=== PATIENT | female | born 1990 | race Caucasian/White ===

== ENCOUNTER 2017-11-03 18:10 | Emergency (ER) | payer BC ==
--- NOTE | 2017-11-03 18:57 | EDM.PDOC ---
ED HPI GENERAL MEDICAL PROBLEM - General Chief Complaint: Abdominal Pain Stated Complaint: STOMACH PAIN Time Seen by Provider: 11/03/17 18:57 Source of Information: Reports: Patient History Limitations: Reports: No Limitations - History of Present Illness INITIAL COMMENTS - FREE TEXT/NARRATIVE: 18-year-old female presents to the ED with diffuse left upper quadrant abdominal pain. She states she's had this pain for about a week. She has known to suffer from chronic recurrent pancreatitis. Last bad attack was about 2 years ago. Current flareup started about a week ago. She was seen in clinic on Wednesday last week and serum lipase was greater than 900. Been living on clear fluids but pain worsened today associated with nausea and vomiting unable to keep down medications. She has had her gallbladder removed about 8 years ago. Stools are loose for the most part or she doesn't go out all depending what she eats. She's been living for the most part on clear fluids such as Gatorade / Powerade. Cause of her pancreas tightest is unclear. No previous surgical trauma or trauma to the pancreas known. She does not drink much in the way of alcohol. No foods that she deliberately avoids. Not sure about her serum calcium levels and or her triglycerides. No recent medication changes. Onset: Gradual Onset Date: 10/27/17 Duration: Day(s): Location: Reports: Abdomen (Left upper quadrant of the abdomen not radiating through to the back.) Quality: Reports: Ache, Pressure Severity: Severe (Current pain is 8 out of 10.) Improves with: Reports: None Worsens with: Reports: Eating Context: Reports: Other (Known to have recurrent problems with recurrent pancreatitis.). Denies: Activity, Exercise, Lifting, Sick Contact, Trauma Associated Symptoms: Reports: Loss of Appetite, Malaise, Nausea/Vomiting. Denies: Confusion, Chest Pain, Cough, cough w sputum, Diaphoresis, Fever/Chills , Headaches, Rash, Seizure (Today she's vomited 3 times bilious material), Shortness of Breath, Syncope Treatments CHOKE SETTER: Reports: Acetaminophen Right Upper Abdomen Pain Score (Numeric/FACES): 7 - Related Data Allergies Allergy/AdvReac Type Severity Reaction Status Date / Time Latex, Natural Rubber Allergy Rash Verified 11/03/17 18:35 metronidazole [From Flagyl] Allergy Rash Verified 11/03/17 18:35 sulfamethoxazole Allergy Rash Verified 11/03/17 18:35 [From Bactrim] trimethoprim [From Bactrim] Allergy Rash Verified 11/03/17 18:35 amoxicillin trihydrate AdvReac Vomiting Verified 11/03/17 18:35 [From Augmentin] potassium clavulanate AdvReac Vomiting Verified 11/03/17 18:35 [From Augmentin] Home Meds: Home Meds . 1 tab PO DAILY 02/06/14 [History] Lactobacillus Combo No.10 [Probiotic] 1 tab PO BID 04/01/15 [History] Calcium Carbonate [Calcium] 600 mg PO DAILY 11/03/17 [History] Escitalopram [Lexapro] 20 mg PO DAILY 11/03/17 [History] Ethinyl Estradiol/Norgestrel [Cryselle 28-Day] 1 tab PO DAILY 11/03/17 [History] oxyCODONE HCl/Acetaminophen [Percocet 5-325 mg Tablet] 1 - 2 each PO Q4H PRN # 16 tablet 11/03/17 [Rx] Past Medical History HEENT History: Reports: Impaired Vision Cardiovascular History: Reports: None Respiratory History: Reports: Other (See Below) Other Respiratory History: smoker x 9 years. has 5-6 cig aday Gastrointestinal History: Reports: GERD Other Gastrointestinal History: History of C-dff Genitourinary History: Reports: None SYSTEM ARCHIVE ANALYST History: Reports: Spontaneous Musculoskeletal History: Reports: Other (See Below) Other Musculoskeletal History: scoliosis Neurological History: Reports: None Psychiatric History: Reports: Anxiety, Depression Endocrine/Metabolic History: Reports: None - Infectious Disease History Infectious Disease History: Reports: C-Difficile - Past Surgical History Head Surgeries/Procedures: Reports: Other (See Below) GI Surgical History: Reports: Abdominal paracentesis Social & Family History - Family History Family Medical History: Noncontributory HEENT: Reports: None - Tobacco Use Smoking Status *Q: Current Every Day Smoker Years of Tobacco use: 10 Packs/Tins Daily: 0.5 Used Tobacco, but Quit: No - Caffeine Use Caffeine Use: Reports: None - Recreational Drug Use Recreational Drug Use: No - Living Situation & Occupation Living situation: Reports: Occupation: Unemployed ED ROS GENERAL - Review of Systems Review Of Systems: See Below Constitutional: Reports: Decreased Appetite, Weight Loss. Denies: Fever, Chills , Malaise, Weakness, Fatigue HEENT: Reports: No Symptoms Respiratory: Reports: No Symptoms Cardiovascular: Reports: No Symptoms Endocrine: Reports: No Symptoms GI/Abdominal: Reports: Abdominal Pain, Diarrhea (See history of present illness intermittent loose stools.). Denies: Distension, Flatus, Hematemesis, Hematochezia, Melena : Reports: No Symptoms Musculoskeletal: Reports: No Symptoms Skin: Reports: No Symptoms Neurological: Reports: No Symptoms Psychiatric: Reports: No Symptoms Hematologic/Lymphatic: Reports: No Symptoms Immunologic: Reports: No Symptoms ED EXAM, GI/ABD - Physical Exam Exam: See Below Exam Limited By: No Limitations General Appearance: Alert, WD/WN, No Apparent Distress Eyes: Bilateral: Normal Appearance (No jaundice.) Throat/Mouth: Normal Inspection, Normal Oropharynx, Other Head: Atraumatic, Normocephalic Neck: Normal Inspection (Lips are mildly dry.), Supple, Non-Tender, Full Range of Motion. No: Lymphadenopathy (L), Lymphadenopathy (R) Respiratory/Chest: No Respiratory Distress, Lungs Clear, Normal Breath Sounds, No Accessory Muscle Use Cardiovascular: Normal Peripheral Pulses, Regular Rate, Rhythm, No Edema, No Gallop, No Murmur GI/Abdominal Exam: Normal Bowel Sounds, Soft, Non-Tender, No Organomegaly, No Distention, No Abnormal Bruit, No Mass, Pelvis Stable, Tender (Minimally tender left upper quadrant of the abdomen.). No: Guarding, Rigid, Rebound Back Exam: Normal Inspection, Full Range of Motion. No: CVA Tenderness (L), CVA Tenderness (R) Extremities: Normal Inspection, Normal Range of Motion, Non-Tender, No Pedal Edema Neurological: Alert, Oriented, CN II-XII Intact, Normal Cognition, Normal Gait Psychiatric: Normal Affect, Normal Mood Skin Exam: Warm, Dry, Intact, Normal Color, No Rash Course - Vital Signs Last Recorded V/S: Last Vital Signs Temp 36.7 C 11/03/17 18:30 Pulse 64 11/03/17 18:30 Resp 18 11/03/17 18:30 BP 113/67 11/03/17 18:30 Pulse Ox 100 11/03/17 18:30 - Orders/Labs/Meds Orders: Active Orders 24 hr Category Date Time Status CALCIUM, IONIZED, SERUM [REF] Stat Lab 05/16/18 18:48 Received URINALYSIS W/O MICROSCOPIC [UA W/O MICROSCOPIC] [URIN] Lab 11/03/17 19:26 Ordered Stat Dextrose 5%-0.9% NaCl [Dextrose 5%-Normal Saline] 1,000 Med 11/03/17 19:15 Active ml IV ASDIRECTED Medication Orders Dextrose/Sodium Chloride (Dextrose 5%-Normal Saline) 1,000 mls @ 999 mls/hr IV ASDIRECTED KATTY Last Admin: 11/03/17 19:16 Dose: 999 mls/hr Labs: Laboratory Tests 11/03/17 11/03/17 11/03/17 Range/Units 18:48 18:48 19:26 WBC 5.42 (3.98-10.04) K/mm3 RBC 4.67 (3.98-5.22) M/mm3 Hgb 14.0 (11.2-15.7) gm/L Hct 42.3 (34.1-44.9) % MCV 90.6 (79.4-94.8) fl MCH 30.0 (25.6-32.2) pg MCHC 33.1 (32.2-35.5) g/dl RDW Std Deviation 40.0 (36.4-46.3) fL Plt Count 195 (182-369) K/mm3 MPV 9.5 (9.4-12.3) fl Neutrophils % (Manual) 47 (40-60) % Band Neutrophils % 0 (0-10) % Lymphocytes % (Manual) 49 H (20-40) % Atypical Lymphs % 0 % Monocytes % (Manual) 3 (2-10) % Eosinophils % (Manual) 1 (0.7-5.8) % Basophils % (Manual) 0 L (0.1-1.2) Platelet Estimate Adequate RBC Morph Comment Normal Sodium 136 (136-145) mEq/L Potassium 4.0 (3.5-5.1) mEq/L Chloride 101 (98-107) mEq/L Carbon Dioxide 23 (21-32) mEq/L Anion Gap 16.0 H (5-15) BUN 14 (7-18) mg/dL Creatinine 0.9 (0.55-1.02) mg/dL Est Cr Clr Drug Dosing 89.30 mL/min Estimated GFR (MDRD) > 60 (>60) mL/min BUN/Creatinine Ratio 15.6 (14-18) Glucose 88 (74-106) mg/dL Calcium 9.1 (8.5-10.1) mg/dL Total Bilirubin 1.2 H (0.2-1.0) mg/dL AST 20 (15-37) U/L ALT 32 (14-59) U/L Alkaline Phosphatase 70 (46-116) U/L C-Reactive Protein < 0.2 (<1.0) mg/dL Total Protein 7.8 (6.4-8.2) g/dl Albumin 4.3 (3.4-5.0) g/dl Globulin 3.5 gm/dL Albumin/Globulin Ratio 1.2 (1-2) Triglycerides 69 (<150) mg/dL Lipase 778 H (73-393) U/L Urine Color Yellow (Yellow) Urine Appearance Slt cloudy H (Clear) Urine pH 5.5 (5.0-8.0) Ur Specific [place] 1.020 (1.005-1.030) Urine Protein Negative (Negative) Urine Glucose (UA) Negative (Negative) Urine Ketones 1+ H (Negative) Urine Occult Blood Negative (Negative) Urine Nitrite Negative (Negative) Urine Bilirubin 1+ H (Negative) Urine Urobilinogen 0.2 (0.2-1.0) Ur Leukocyte Esterase Negative (Negative) Meds: Medications Generic Name Dose Route Start Last Admin Trade Name Jason PRN Reason Stop Dose Admin Dextrose/Sodium Chloride 1,000 mls @ 999 mls/hr 11/03/17 19:15 11/03/17 19:16 Dextrose 5%-Normal Saline IV 999 mls/hr ASDIRECTED KATTY Administration Discontinued Medications Generic Name Dose Route Start Last Admin Trade Name Jason PRN Reason Stop Dose Admin Hydromorphone HCl 0.5 mg 11/03/17 19:06 11/03/17 19:17 Dilaudid IVPUSH 11/03/17 19:07 0.5 mg ONETIME ONE Administration Hydromorphone HCl 0.5 mg 11/03/17 19:52 11/03/17 20:02 Dilaudid IVPUSH 11/03/17 19:53 0.5 mg ONETIME ONE Administration Metoclopramide HCl 7.5 mg 11/03/17 19:06 11/03/17 19:14 Reglan IVPUSH 11/03/17 19:07 7.5 mg ONETIME ONE Administration - Radiology Interpretation Free Text/Narrative:: 18-year-old female presents the ED with diffuse left upper quadrant epigastric abdominal pain more or less for the last week. She has a history of recurrent chronic pancreatitis and hasn't had a bout of proctitis for about 2 years. She had her gallbladder removed 8 years ago. She has no etiology for reason for pancreatitis. No trauma no surgical injury. Does not know about her calcium levels or serum triglycerides. She's been living for the most part are clear fluid diet for the last week. Intermittent diarrhea stools are loose stools. Some steatorrhea. Plan :IV D5 normal saline at open. Dilaudid 0.5 mg IV for pain relief with Reglan 7.5 mg IV. Routine lab work including serum lipase and urinalysis to be done. - Re-Assessments/Exams Free Text/Narrative Re-Assessment/Exam: 11/03/17 19:50 Labs reveal a normal white count at 5.42. Differentials 47% neutrophils no bands reported hemoglobin is 14.0 with hematocrit of 42.3. Platelets are 195,000. Chemistry is normal other than a slightly elevated anion gap at 16.0. Urine is 14 with a creatinine of 0.9. Glucose is 88. Calcium is 9.1 total bilirubin is 1.2 liver function normal. Lipase is 778. Triglycerides are low at 69. C-reactive protein is less than 0.2. Urinalysis shows 1+ ketones 1+ bilirubin. Infection. She reports her abdominal pain is still about a 45 out of 10. Nausea is improved. Will repeat Dilaudid 0.5 mg IV. 11/03/17 20:32 patient is completed liter of IV fluids and feels better. Pain is currently 3 out of 10. Will be discharged home on Percocet tabs 10/21/24 one or 2 every 4-6 hours as needed for pain relief 16 tablets provided. Then 4 mg sublingually every 6 hours needed for nausea relief. Diet to be clear fluids plan primarily Gatorade Powerade and advance as tolerated. She has no reason to have recurrent parotitis. Gallbladder is gone is been no trauma she does not drink enough alcohol to cause pancreatitis. Her serum triglycerides are normal her calcium levels are normal. This leaves medications. The only medication she is on that may cause pancreatic sinuses her control pill. Discussed this with her she may have to discuss this with her primary care physician or SYSTEM ARCHIVE ANALYST to switch forms of control to avoid recurrent parotitis. Departure - Departure Time of Disposition: 20:34 Disposition: Home, Self-Care 01 Condition: Fair Clinical Impression: Recurrent acute pancreatitis - Discharge Information Prescriptions: oxyCODONE HCl/Acetaminophen [Percocet 5-325 mg Tablet] 1 - 2 each PO Q4H PRN # 16 tablet PRN Reason: pain relief. Referrals: PCP,None [Primary Care Provider] - Forms: ED Department Discharge Additional Instructions: Evaluation the emergency room tonight in regards to persistent left upper quadrant abdominal pain characteristic of her pancreatitis. The right nose to pancreatitis over a week ago. Serum lipase is reportedly 900 on Wednesday last week. Pain became worse today with associated nausea and vomiting. Examination reveals tenderness left upper quadrant of the abdomen. Lab work confirmed parotitis with an elevated lipase of 778. The remainder your labs are essentially normal. You're treated with a liter of IV fluids to provide rehydration. You were given medications Reglan 7.5 mg with Dilaudid 0.5 mg 2 doses to relieve your pain. The only reason I can identify that she may be having recurrent pancreatitis is medication induced perhaps ethinyl estradiol control pills are contributing to parotitis as this is a known side effect of oral contraceptives. Therefore discuss contraceptive options with your SYSTEM ARCHIVE ANALYST or primary care physician is I would suggest trialing office with control pill to see if this alleviates further bouts of pancreatitis. May use Percocet tabs //25 one or 2 every 4-6 hours needed for pain relief for the next few days until the pancreatitis settles down. Continue Zofran 4 mg under the tongue every 4-6 hours needed for nausea relief. Diet to be primarily clear fluids such as Gatorade Powerade and advance to light diet as tolerated avoiding fatty foods for at least 3-4 days. Follow-up with personal care physician or return to the ED if not markedly improved in 4 days time. - My Orders Last 24 Hours: My Active Orders 11/03/17 18:48 CALCIUM, IONIZED, SERUM [REF] Stat 11/03/17 19:15 Dextrose 5%-0.9% NaCl [Dextrose 5%-Normal Saline] 1,000 ml IV ASDIRECTED 11/03/17 19:26 URINALYSIS W/O MICROSCOPIC [UA W/O MICROSCOPIC] [URIN] Stat - Assessment/Plan Last 24 Hours: My Active Orders 11/03/17 18:48 CALCIUM, IONIZED, SERUM [REF] Stat 11/03/17 19:15 Dextrose 5%-0.9% NaCl [Dextrose 5%-Normal Saline] 1,000 ml IV ASDIRECTED 11/03/17 19:26 URINALYSIS W/O MICROSCOPIC [UA W/O MICROSCOPIC] [URIN] Stat
[2017-11-03] MEDS ORDERED: HYDROmorphone 0.5 MG/0.5 ML SYRINGE IVPUSH ONE ×2 (19:06→19:52)
[2017-11-03] MEDS ORDERED: Metoclopramide 10 MG/2 ML SDV IVPUSH ONE (19:06)
[2017-11-03] MEDS ORDERED: Dextrose 5%-0.9% NaCl 1,000 ML IV SCH (19:15)
[2017-11-03 20:51] VITALS: BP 106/57
== END 2017-11-03 20:49 | disposition home or self-care (01) ==
LOC: JD.ED 18:10
DX: K85.90 Acute pancreatitis without necrosis or infection, unspecified (principal); F41.9 Anxiety disorder, unspecified; F32.9 Major depressive disorder, single episode, unspecified; F17.210 Nicotine dependence, cigarettes, uncomplicated; Z91.040 Latex allergy status; Z88.1 Allergy status to other antibiotic agents; Z88.2 Allergy status to sulfonamides; Z79.899 Other long term (current) drug therapy
CPT/HCPCS: 80053; 81003; 82330; 83690; 84478; 85007; 85027; 86140; 96361; 96374; 96375; 96376; 99284; J1170; J2765; J7042; 36415

== ENCOUNTER 2017-11-26 20:53 | Emergency (ER) | payer BC ==
[2017-11-26 21:16] VITALS: BP 126/68
[2017-11-26] MEDS ORDERED: Ondansetron 4 MG/2 ML SDV IVPUSH ONE (21:46)
[2017-11-26] MEDS ORDERED: HYDROmorphone 0.5 MG/0.5 ML SYRINGE IVPUSH STA (21:48)
[2017-11-26] MEDS ORDERED: Sodium Chloride 0.9% 1,000 ML IV SCH (22:00)
[2017-11-27] MEDS ORDERED: Iopamidol 612 MG/ML 100 ML Bottle IVPUSH ONE (00:07)
[2017-11-27] MEDS ORDERED: Sodium Chloride 0.9% 10 ML Syringe FLUSH PRN (00:07)
[2017-11-27] MEDS ORDERED: Diatrizoate Meglumine/Diatrizoate Sodium 37% 120 ML Bottle PO ONE (00:07)
--- NOTE | 2017-11-27 01:28 | EDM.PDOC ---
ED HPI GENERAL MEDICAL PROBLEM - General Chief Complaint: Abdominal Pain Stated Complaint: CHRONIC PANCRITITIOUS FLARED UP Time Seen by Provider: 11/26/17 21:17 Source of Information: Reports: Patient, Family () History Limitations: Reports: No Limitations Left Abdomen Pain Score (Numeric/FACES): 7 - Related Data Allergies Allergy/AdvReac Type Severity Reaction Status Date / Time Latex, Natural Rubber Allergy Rash Verified 11/03/17 18:35 metronidazole [From Flagyl] Allergy Rash Verified 11/03/17 18:35 sulfamethoxazole Allergy Rash Verified 11/03/17 18:35 [From Bactrim] trimethoprim [From Bactrim] Allergy Rash Verified 11/03/17 18:35 amoxicillin trihydrate AdvReac Vomiting Verified 11/03/17 18:35 [From Augmentin] potassium clavulanate AdvReac Vomiting Verified 11/03/17 18:35 [From Augmentin] Home Meds: Home Meds Lactobacillus Combo No.10 [Probiotic] 1 tab PO BID 04/01/15 [History] Calcium Carbonate [Calcium] 600 mg PO DAILY 11/03/17 [History] Escitalopram [Lexapro] 20 mg PO DAILY 11/03/17 [History] Ethinyl Estradiol/Norgestrel [Cryselle 28-Day] 1 tab PO DAILY 11/03/17 [History] Azithromycin [Zithromax] 250 mg PO DAILY 11/26/17 [History] PNV95/Ferrous Fumarate/FA [ Tablet] 1 tab PO DAILY 11/26/17 [History] Acetaminophen/HYDROcodone [Agar 325-5 MG] 1 - 2 tab PO Q6H PRN #20 tablet 11/27 [Rx] Past Medical History HEENT History: Reports: Impaired Vision Cardiovascular History: Reports: None Respiratory History: Reports: Other (See Below) Other Respiratory History: smoker x 9 years. has 5-6 cig aday Gastrointestinal History: Reports: GERD Other Gastrointestinal History: History of C-dff Genitourinary History: Reports: None BAR BACK History: Reports: Spontaneous Musculoskeletal History: Reports: Other (See Below) Other Musculoskeletal History: scoliosis Neurological History: Reports: None Psychiatric History: Reports: Anxiety, Depression Endocrine/Metabolic History: Reports: None - Infectious Disease History Infectious Disease History: Reports: C-Difficile - Past Surgical History Head Surgeries/Procedures: Reports: Other (See Below) GI Surgical History: Reports: Abdominal paracentesis Social & Family History - Family History Family Medical History: Noncontributory HEENT: Reports: None - Tobacco Use Smoking Status *Q: Current Every Day Smoker Years of Tobacco use: 11 Packs/Tins Daily: 0.7 - Caffeine Use Caffeine Use: Reports: Soda, Tea - Recreational Drug Use Recreational Drug Use: No - Living Situation & Occupation Living situation: Reports: Occupation: Unemployed ED ROS GENERAL - Review of Systems Review Of Systems: ROS reveals no pertinent complaints other than HPI. ED EXAM, GI/ABD - Physical Exam Exam: See Below Exam Limited By: No Limitations General Appearance: Alert, WD/WN, No Apparent Distress Eyes: Bilateral: Normal Appearance, EOMI Ears: Normal External Exam, Hearing Grossly Normal Nose: Normal Inspection, No Blood Throat/Mouth: Normal Inspection, Normal Lips, Normal Voice, No Airway Compromise Head: Atraumatic, Normocephalic Neck: Normal Inspection, Full Range of Motion Respiratory/Chest: No Respiratory Distress, Lungs Clear, Normal Breath Sounds, No Accessory Muscle Use Cardiovascular: Normal Peripheral Pulses, Regular Rate, Rhythm, No Gallop, No JVD, No Murmur, No Rub GI/Abdominal Exam: Normal Bowel Sounds, Soft, No Organomegaly, No Distention, No Abnormal Bruit, No Mass, Pelvis Stable, Tender (To the epigastric region only. Nontender elsewhere, including the left upper quadrant.) (Female) Exam: Deferred Rectal (Female) Exam: Deferred Back Exam: Normal Inspection, Full Range of Motion. No: CVA Tenderness (L), CVA Tenderness (R) Extremities: Normal Inspection, Normal Range of Motion, No Pedal Edema, Normal Capillary Refill Neurological: Alert, Oriented, Normal Cognition, No Motor/Sensory Deficits Psychiatric: Normal Affect Skin Exam: Warm, Dry, Intact, Normal Color, No Rash Course - Vital Signs Last Recorded V/S: Last Vital Signs Temp 37.0 C 11/26/17 21:15 Pulse 84 11/26/17 21:15 Resp 20 11/26/17 21:15 BP 126/68 11/26/17 21:15 Pulse Ox 99 11/26/17 21:15 - Orders/Labs/Meds Orders: Active Orders 24 hr Category Date Time Status Abdomen Pelvis w Cont [CT] Stat Exams 11/26/17 21:46 Taken HCG QUALITATIVE,URINE [URCHEM] Stat Lab 11/26/17 22:12 Ordered UA W/MICROSCOPIC [URIN] Stat Lab 11/26/17 22:12 Ordered Labs: Laboratory Tests 11/26/17 11/26/17 11/26/17 Range/Units 22:05 22:05 22:12 WBC 7.62 (3.98-10.04) K/mm3 RBC 4.44 (3.98-5.22) M/mm3 Hgb 13.3 (11.2-15.7) gm/L Hct 40.7 (34.1-44.9) % MCV 91.7 (79.4-94.8) fl MCH 30.0 (25.6-32.2) pg MCHC 32.7 (32.2-35.5) g/dl RDW Std Deviation 40.9 (36.4-46.3) fL Plt Count 222 (182-369) K/mm3 MPV 9.4 (9.4-12.3) fl Neutrophils % (Manual) 54 (40-60) % Band Neutrophils % 0 (0-10) % Lymphocytes % (Manual) 38 (20-40) % Atypical Lymphs % 0 % Monocytes % (Manual) 6 (2-10) % Eosinophils % (Manual) 2 (0.7-5.8) % Basophils % (Manual) 0 L (0.1-1.2) Platelet Estimate Adequate Plt Morphology Comment Normal RBC Morph Comment Normal Sodium 143 (136-145) mEq/L Potassium 3.3 L (3.5-5.1) mEq/L Chloride 106 (98-107) mEq/L Carbon Dioxide 26 (21-32) mEq/L Anion Gap 14.3 (5-15) BUN 7 (7-18) mg/dL Creatinine 0.8 (0.55-1.02) mg/dL Est Cr Clr Drug Dosing 98.07 mL/min Estimated GFR (MDRD) > 60 (>60) mL/min BUN/Creatinine Ratio 8.8 L (14-18) Glucose 111 H (74-106) mg/dL Calcium 9.0 (8.5-10.1) mg/dL Total Bilirubin 0.9 (0.2-1.0) mg/dL AST 19 (15-37) U/L ALT 36 (14-59) U/L Alkaline Phosphatase 105 (46-116) U/L Total Protein 7.5 (6.4-8.2) g/dl Albumin 3.6 (3.4-5.0) g/dl Globulin 3.9 gm/dL Albumin/Globulin Ratio 0.9 L (1-2) Lipase 987 H (73-393) U/L Urine Color Yellow (Yellow) Urine Appearance Clear (Clear) Urine pH 6.5 (5.0-8.0) Ur Specific Caro 1.015 (1.005-1.030) Urine Protein Negative (Negative) Urine Glucose (UA) Negative (Negative) Urine Ketones Negative (Negative) Urine Occult Blood 2+ H (Negative) Urine Nitrite Negative (Negative) Urine Bilirubin Negative (Negative) Urine Urobilinogen 0.2 (0.2-1.0) Ur Leukocyte Esterase Negative (Negative) Urine RBC 0-5 (0-5) /hpf Urine WBC Not seen (0-5) /hpf Ur Epithelial Cells 0-5 (0-5) /hpf Urine Bacteria Not seen (FEW) /hpf Urine Mucus Not seen (FEW) /hpf Urine HCG, Qual (NEGATIVE) 11/26/17 Range/Units 22:12 WBC (3.98-10.04) K/mm3 RBC (3.98-5.22) M/mm3 Hgb (11.2-15.7) gm/L Hct (34.1-44.9) % MCV (79.4-94.8) fl MCH (25.6-32.2) pg MCHC (32.2-35.5) g/dl RDW Std Deviation (36.4-46.3) fL Plt Count (182-369) K/mm3 MPV (9.4-12.3) fl Neutrophils % (Manual) (40-60) % Band Neutrophils % (0-10) % Lymphocytes % (Manual) (20-40) % Atypical Lymphs % % Monocytes % (Manual) (2-10) % Eosinophils % (Manual) (0.7-5.8) % Basophils % (Manual) (0.1-1.2) Platelet Estimate Plt Morphology Comment RBC Morph Comment Sodium (136-145) mEq/L Potassium (3.5-5.1) mEq/L Chloride (98-107) mEq/L Carbon Dioxide (21-32) mEq/L Anion Gap (5-15) BUN (7-18) mg/dL Creatinine (0.55-1.02) mg/dL Est Cr Clr Drug Dosing mL/min Estimated GFR (MDRD) (>60) mL/min BUN/Creatinine Ratio (14-18) Glucose (74-106) mg/dL Calcium (8.5-10.1) mg/dL Total Bilirubin (0.2-1.0) mg/dL AST (15-37) U/L ALT (14-59) U/L Alkaline Phosphatase (46-116) U/L Total Protein (6.4-8.2) g/dl Albumin (3.4-5.0) g/dl Globulin gm/dL Albumin/Globulin Ratio (1-2) Lipase (73-393) U/L Urine Color (Yellow) Urine Appearance (Clear) Urine pH (5.0-8.0) Ur Specific Caro (1.005-1.030) Urine Protein (Negative) Urine Glucose (UA) (Negative) Urine Ketones (Negative) Urine Occult Blood (Negative) Urine Nitrite (Negative) Urine Bilirubin (Negative) Urine Urobilinogen (0.2-1.0) Ur Leukocyte Esterase (Negative) Urine RBC (0-5) /hpf Urine WBC (0-5) /hpf Ur Epithelial Cells (0-5) /hpf Urine Bacteria (FEW) /hpf Urine Mucus (FEW) /hpf Urine HCG, Qual Negative (NEGATIVE) Meds: Medications Discontinued Medications Generic Name Dose Route Start Last Admin Trade Name Freq PRN Reason Stop Dose Admin Diatrizoate Meglum/Diatrizoate Sod 90 ml 11/27/17 00:07 11/27/17 00:20 Gastrografin 37% PO 11/27/17 00:08 90 ml ONETIME ONE Administration Hydromorphone HCl 1 mg 11/26/17 21:48 11/26/17 22:07 Dilaudid IVPUSH 11/26/17 21:49 1 mg ONETIME STA Administration Sodium Chloride 1,000 mls @ 150 mls/hr 11/26/17 22:00 11/26/17 22:09 Normal Saline IV 150 mls/hr ASDIRECTED KATTY Administration Iopamidol 100 ml 11/27/17 00:07 11/27/17 00:20 Isovue-300 (61%) IVPUSH 11/27/17 00:08 100 ml ONETIME ONE Administration Ondansetron HCl 4 mg 11/26/17 21:46 11/26/17 22:08 Zofran IVPUSH 11/26/17 21:47 4 mg ONETIME ONE Administration Sodium Chloride 10 ml 11/27/17 00:07 11/27/17 00:20 Saline Flush FLUSH 10 ml ONETIME PRN Administration IV FLUSH - Re-Assessments/Exams Free Text/Narrative Re-Assessment/Exam: 11/27/17 01:21 CT of the abdomen and pelvis with oral and IV contrast is read by [facility] as: Moderate to large amount of stool in the colon. No acute inflammatory/infectious process identified in the abdomen or pelvis. No evidence of bowel obstruction. 2 liver lesions, see discussion and recommendations above. The body of the report reads: There is a 2.3 x 2.2 cm enhancing mass in the medial of the liver bordering the falciform ligament. This is a nonspecific finding but may represent a hemangioma among other etiologies. There is an additional 1.2 x 1.2 cm hypodense lesion with a possible focus of peripheral nodular enhancement in the high subscapular left lobe of liver. Recommend correlation with triple phase liver CT or liver MRI without and with gadolinium. There is no intrahepatic biliary dilatation. 11/27/17 01:28 Test results discussed with the patient and her . 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 She does not need to be admitted to the hospital for treatment of pancreatitis however, I am going to discharge her home with a prescription for Agar. She states that she has an antiemetic at home already. 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 Departure - Departure Time of Disposition: 01:30 Disposition: Home, Self-Care 01 Condition: Fair Clinical Impression: Pancreatic pain, Lesion of liver - Discharge Information Prescriptions: Acetaminophen/HYDROcodone [Agar 325-5 MG] 1 - 2 tab PO Q6H PRN #20 tablet PRN Reason: Pain (Severe 7-10) Instructions: Abdominal Pain, Adult, [id number] Referrals: Crystal Beckford NP [Primary Care Provider] - Forms: ED Department Discharge Additional Instructions: You were seen in the emergency room for upper left abdominal pain and nausea. Workup in the ER included blood work, a urinalysis, a urine test, and a CT scan of your abdomen and pelvis. Your lipase returned elevated at 987 - high, but not 3 times the upper limit of normal as required for a diagnosis of pancreatitis. Your CT scan found several lesions in your liver that need to be followed up with either a triple phase CT scan or a MRI with gadolinium contrast. The remainder of your workup was unremarkable. The CT scan did not find any abnormality with your pancreas. You do not have pancreatitis, however, your abdominal pain is likely from your pancreas. You have been prescribed the narcotic pain reliever Agar. Take 1-2 tablets up to every 6 hours as needed for pain. If you take Agar, do not drive for 10 hours afterwards. Agar will likely cause constipation, so consider taking a stool softener. Follow-up with your Social Sciences Lecturer in [place] [employer] at the next available appointment, as a follow-up for your abdominal pain, as well as to arrange for evaluation of your liver lesions. If any other problems, please do not hesitate to return to the ER. - My Orders Last 24 Hours: My Active Orders 11/26/17 21:46 Abdomen Pelvis w Cont [CT] Stat 11/26/17 22:12 HCG QUALITATIVE,URINE [URCHEM] Stat UA W/MICROSCOPIC [URIN] Stat - Assessment/Plan Last 24 Hours: My Active Orders 11/26/17 21:46 Abdomen Pelvis w Cont [CT] Stat 11/26/17 22:12 HCG QUALITATIVE,URINE [URCHEM] Stat UA W/MICROSCOPIC [URIN] Stat
--- NOTE | 2017-11-29 08:08 | CT ---
CT abdomen and pelvis Technique: Multiple axial sections were obtained from above the dome of the diaphragm inferiorly through the pubic symphysis. Intravenous and oral contrast was utilized. Delayed images were obtained through the bladder. Comparison: Prior CT abdomen exam of 04/16/15. Findings: Visualized lung bases show nothing acute. Liver shows an enhancing lesion near the ligamentum teres fissure measuring approximately 2.3 cm. This is an interval change from prior CT exam. Small abnormality with minimal peripheral enhancement noted within the dome of the right lobe of the liver measuring about 1.0 cm in size. This finding is seen on previous CT exam and appears without change. Spleen appears within normal limits. Adrenal glands show no nodule. Kidneys show symmetric contrast enhancement without hydronephrosis or mass. Surgical clips seen from prior cholecystectomy. Pancreas is within normal limits. Aorta shows no aneurysmal dilatation. No retroperitoneal adenopathy or mesenteric abnormalities are seen. No pelvic mass or adenopathy is seen. Delayed images show contrast within the bladder. No bowel dilatation is seen. No free fluid or inflammatory change is seen. Appendix not visualized with certainty. Bone window settings were reviewed and within normal limits for the patient's age. Impression: 1. Two liver lesions. One liver lesion seen on prior CT exam and likely represents hemangioma. Second liver lesion is not seen on prior study. This may represent a hemangioma but recommend nuclear medicine RBC SPECT study to hopefully confirm. 2. Nothing acute is otherwise seen on CT study of the abdomen and pelvis. Diagnostic code #3 I agree with preliminary report from [facility], finalized at 11/27/17, 2:07 AM Central Time
== END 2017-11-27 02:00 | disposition home or self-care (01) ==
LOC: JD.ED 20:53
DX: K86.89 Other specified diseases of pancreas (principal); K76.9 Liver disease, unspecified; K21.9 Gastro-esophageal reflux disease without esophagitis; F41.9 Anxiety disorder, unspecified; F32.9 Major depressive disorder, single episode, unspecified; F17.210 Nicotine dependence, cigarettes, uncomplicated; Z91.040 Latex allergy status; Z88.8 Allergy status to other drugs, medicaments and biological substances; Z88.2 Allergy status to sulfonamides; Z79.899 Other long term (current) drug therapy
CPT/HCPCS: 36415; 74177; 80053; 81001; 81025; 83690; 85007; 85027; 96361; 96374; 96375; 99284; J1170; J2405; J7040; J7050; Q9963; Q9967

== ENCOUNTER 2018-09-12 17:35 | Emergency (ER) | payer BC ==
[2018-09-12] MEDS ORDERED: Sodium Chloride 0.9% 10 ML Syringe FLUSH PRN (18:53)
[2018-09-12] MEDS ORDERED: Sodium Chloride 0.9% 1,000 ML IV ONE (18:53)
[2018-09-12] MEDS ORDERED: HYDROmorphone 1 MG/ML Syringe IVPUSH ONE (18:53)
[2018-09-12] MEDS ORDERED: Ondansetron 4 MG/2 ML SDV IVPUSH ONE (18:53)
--- NOTE | 2018-09-12 19:05 | EDM.PDOC ---
ED HPI GENERAL MEDICAL PROBLEM - General Chief Complaint: Abdominal Pain Stated Complaint: CHRONIC PANCREATITIS Time Seen by Provider: 09/12/18 18:44 Source of Information: Reports: Patient History Limitations: Reports: No Limitations - History of Present Illness INITIAL COMMENTS - FREE TEXT/NARRATIVE: Patient is a 27-year-old female who presents to the ED complaining of epigastric /left upper quadrant abdominal pain consistent with previous episodes of pancreatitis flareup. She has a history of chronic pancreatitis. Started 3 days ago waxes and wanes in intensity constant in nature. In addition she's had diarrhea since onset of pain. 10+ episodes Wednesday and Wednesday per day. Today only 3. No dark tarry stools and/or bloody stools present. No recent sick exposure at this point. She denies any recent antibiotic use. She has a history of C. difficile in the past and states this is different. There has been no ingestion of bad or questionable food. She had a temperature on Wednesday of 102 F. None since. She states the chronic pancreatitis is idiopathic in nature. She states her last menstrual cycle was August 23, 2017. She's had no abnormal vaginal discharge or bleeding. She has a history of molar in 2018. The occurred April 2018. She is on a higher dose of control since. Again pain is similar to previous episodes of pancreatitis. She denies any fever , chest pain, sob, nausea vomiting, dysuria, and/or any additional complaints today. Left Upper Abdominal Pain Score (Numeric/FACES): 7 - Related Data Allergies Allergy/AdvReac Type Severity Reaction Status Date / Time Latex, Natural Rubber Allergy Rash Verified 09/12/18 18:21 metronidazole [From Flagyl] Allergy Rash Verified 09/12/18 18:21 sulfamethoxazole Allergy Rash Verified 09/12/18 18:21 [From Bactrim] trimethoprim [From Bactrim] Allergy Rash Verified 09/12/18 18:21 amoxicillin trihydrate AdvReac Vomiting Verified 09/12/18 18:21 [From Augmentin] potassium clavulanate AdvReac Vomiting Verified 09/12/18 18:21 [From Augmentin] Home Meds: Home Meds Folic Acid 1 tab PO DAILY 04/29/18 [History] #103/Iron Fumarate/Fa [ ] 1 tab PO DAILY 04/29/18 [ History] Norgestrel-Ethinyl Estradiol [Elinest-28 Tablet] 1 tab PO DAILY 05/20/18 [ History] Past Medical History HEENT History: Reports: Impaired Vision Cardiovascular History: Reports: None Respiratory History: Reports: Other (See Below) Other Respiratory History: smoker x 9 years. 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: D&C Musculoskeletal History: Reports: Other (See Below) Other Musculoskeletal History: scoliosis Neurological History: Reports: None Psychiatric History: Reports: Anxiety, Depression Endocrine/Metabolic History: Reports: None - Infectious Disease History Infectious Disease History: Reports: C-Difficile - Past Surgical History Head Surgeries/Procedures: Reports: Other (See Below) GI Surgical History: Reports: Abdominal paracentesis Social & Family History - Family History Family Medical History: Noncontributory HEENT: Reports: None - Tobacco Use Smoking Status *Q: Current Every Day Smoker Years of Tobacco use: 11 Packs/Tins Daily: 0.5 - Caffeine Use Caffeine Use: Reports: Coffee - Recreational Drug Use Recreational Drug Use: No - Living Situation & Occupation Living situation: Reports: Occupation: Unemployed ED ROS GENERAL - Review of Systems Review Of Systems: ROS reveals no pertinent complaints other than HPI. ED EXAM, GI/ABD - Physical Exam Exam: See Below Exam Limited By: No Limitations General Appearance: Alert, WD/WN, No Apparent Distress Ears: Hearing Grossly Normal Nose: Normal Inspection Throat/Mouth: Normal Inspection, Normal Oropharynx, Normal Voice, No Airway Compromise Head: Atraumatic, Normocephalic Neck: Normal Inspection, Supple Respiratory/Chest: No Respiratory Distress, Lungs Clear, Normal Breath Sounds, No Accessory Muscle Use, Chest Non-Tender Cardiovascular: Normal Peripheral Pulses, Regular Rate, Rhythm, No Murmur GI/Abdominal Exam: Normal Bowel Sounds, Soft, No Organomegaly, No Distention, Tender (Epigastric and left upper quadrant) Back Exam: Normal Inspection. No: CVA Tenderness (L), CVA Tenderness (R) Extremities: Normal Inspection Neurological: Alert, Oriented, CN II-XII Intact, Normal Cognition Psychiatric: Normal Affect, Normal Mood Skin Exam: Warm, Dry, Intact, Normal Color Course - Vital Signs Last Recorded V/S: Last Vital Signs Temp 97.9 F 09/12/18 18:18 Pulse 62 09/12/18 18:18 Resp 16 09/12/18 18:18 BP Pulse Ox 99 09/12/18 18:18 - Orders/Labs/Meds Orders: Active Orders 24 hr Category Date Time Status Peripheral IV Care [RC] . DIRECTED Care 09/12/18 18:53 Active Abdomen 2V AP Flat Upright [CR] Stat Exams 09/12/18 18:53 Taken WBC, STOOL [OP] Stat Lab 09/12/18 18:58 Ordered Sodium Chloride 0.9% [Saline Flush] Med 09/12/18 18:53 Active 10 ml FLUSH ASDIRECTED PRN Peripheral IV Insertion Adult [OM.PC] Routine Oth 09/12/18 18:53 Ordered Medication Orders Sodium Chloride (Saline Flush) 10 ml FLUSH ASDIRECTED PRN PRN Reason: Keep Vein Open Last Admin: 09/12/18 19:07 Dose: 10 ml Labs: Laboratory Tests 09/12/18 09/12/18 09/12/18 Range/Units 19:05 19:10 20:22 WBC 6.00 (3.98-10.04) K/mm3 RBC 4.71 (3.98-5.22) M/mm3 Hgb 13.9 (11.2-15.7) gm/L Hct 41.2 (34.1-44.9) % MCV 87.5 (79.4-94.8) fl MCH 29.5 (25.6-32.2) pg MCHC 33.7 (32.2-35.5) g/dl RDW Std Deviation 40.3 (36.4-46.3) fL Plt Count 232 (182-369) K/mm3 MPV 9.3 L (9.4-12.3) fl Neutrophils % (Manual) 45 (40-60) % Band Neutrophils % 0 (0-10) % Lymphocytes % (Manual) 49 H (20-40) % Atypical Lymphs % 0 % Monocytes % (Manual) 5 (2-10) % Eosinophils % (Manual) 1 (0.7-5.8) % Basophils % (Manual) 0 L (0.1-1.2) Platelet Estimate Adequate RBC Morph Comment Normal Sodium 140 (136-145) mEq/L Potassium 3.8 (3.5-5.1) mEq/L Chloride 106 (98-107) mEq/L Carbon Dioxide 24 (21-32) mEq/L Anion Gap 13.8 (5-15) BUN 7 (7-18) mg/dL Creatinine 0.8 (0.55-1.02) mg/dL Est Cr Clr Drug Dosing 100.90 mL/min Estimated GFR (MDRD) > 60 (>60) mL/min BUN/Creatinine Ratio 8.8 L (14-18) Glucose 91 (74-106) mg/dL Calcium 9.3 (8.5-10.1) mg/dL Total Bilirubin 0.3 (0.2-1.0) mg/dL AST 14 L (15-37) U/L ALT 29 (14-59) U/L Alkaline Phosphatase 86 (46-116) U/L C-Reactive Protein 0.2 (<1.0) mg/dL Total Protein 7.9 (6.4-8.2) g/dl Albumin 4.0 (3.4-5.0) g/dl Globulin 3.9 gm/dL Albumin/Globulin Ratio 1.0 (1-2) Lipase 726 H (73-393) U/L Urine Color Yellow (Yellow) Urine Appearance Clear (Clear) Urine pH 6.0 (5.0-8.0) Ur Specific [place] 1.020 (1.005-1.030) Urine Protein Negative (Negative) Urine Glucose (UA) Negative (Negative) Urine Ketones Negative (Negative) Urine Occult Blood Negative (Negative) Urine Nitrite Negative (Negative) Urine Bilirubin Negative (Negative) Urine Urobilinogen 0.2 (0.2-1.0) Ur Leukocyte Esterase Trace H (Negative) Urine RBC 0-5 (0-5) /hpf Urine WBC 0-5 (0-5) /hpf Ur Epithelial Cells 5-10 H (0-5) /hpf Urine Bacteria Occasional (FEW) /hpf Urine Mucus Moderate H (FEW) /hpf Urine HCG, Qual (NEGATIVE) 09/12/18 Range/Units 20:22 WBC (3.98-10.04) K/mm3 RBC (3.98-5.22) M/mm3 Hgb (11.2-15.7) gm/L Hct (34.1-44.9) % MCV (79.4-94.8) fl MCH (25.6-32.2) pg MCHC (32.2-35.5) g/dl RDW Std Deviation (36.4-46.3) fL Plt Count (182-369) K/mm3 MPV (9.4-12.3) fl Neutrophils % (Manual) (40-60) % Band Neutrophils % (0-10) % Lymphocytes % (Manual) (20-40) % Atypical Lymphs % % Monocytes % (Manual) (2-10) % Eosinophils % (Manual) (0.7-5.8) % Basophils % (Manual) (0.1-1.2) Platelet Estimate RBC Morph Comment Sodium (136-145) mEq/L Potassium (3.5-5.1) mEq/L Chloride (98-107) mEq/L Carbon Dioxide (21-32) mEq/L Anion Gap (5-15) BUN (7-18) mg/dL Creatinine (0.55-1.02) mg/dL Est Cr Clr Drug Dosing mL/min Estimated GFR (MDRD) (>60) mL/min BUN/Creatinine Ratio (14-18) Glucose (74-106) mg/dL Calcium (8.5-10.1) mg/dL Total Bilirubin (0.2-1.0) mg/dL AST (15-37) U/L ALT (14-59) U/L Alkaline Phosphatase (46-116) U/L C-Reactive Protein (<1.0) mg/dL Total Protein (6.4-8.2) g/dl Albumin (3.4-5.0) g/dl Globulin gm/dL Albumin/Globulin Ratio (1-2) Lipase (73-393) U/L Urine Color (Yellow) Urine Appearance (Clear) Urine pH (5.0-8.0) Ur Specific [place] (1.005-1.030) Urine Protein (Negative) Urine Glucose (UA) (Negative) Urine Ketones (Negative) Urine Occult Blood (Negative) Urine Nitrite (Negative) Urine Bilirubin (Negative) Urine Urobilinogen (0.2-1.0) Ur Leukocyte Esterase (Negative) Urine RBC (0-5) /hpf Urine WBC (0-5) /hpf Ur Epithelial Cells (0-5) /hpf Urine Bacteria (FEW) /hpf Urine Mucus (FEW) /hpf Urine HCG, Qual Negative (NEGATIVE) Meds: Medications Generic Name Dose Route Start Last Admin Trade Name Frekayla PRN Reason Stop Dose Admin Sodium Chloride 10 ml 09/12/18 18:53 09/12/18 19:07 Saline Flush FLUSH 10 ml ASDIRECTED PRN Administration Keep Vein Open Discontinued Medications Generic Name Dose Route Start Last Admin Trade Name Jason PRN Reason Stop Dose Admin Hydromorphone HCl 0.5 mg 09/12/18 18:53 09/12/18 19:07 Dilaudid IVPUSH 09/12/18 18:54 0.5 mg ONETIME ONE Administration Sodium Chloride 1,000 mls @ 500 mls/hr 09/12/18 18:53 09/12/18 19:06 Normal Saline IV 09/12/18 20:52 500 mls/hr ONETIME ONE Administration Ondansetron HCl 4 mg 09/12/18 18:53 09/12/18 19:06 Zofran IVPUSH 09/12/18 18:54 4 mg ONETIME ONE Administration - Re-Assessments/Exams Free Text/Narrative Re-Assessment/Exam: Vital signs are stable upon examination. IV will be established with normal saline, Dilaudid, and Zofran. Initial labs and studies will include: CBC, chem 14, CRP, lipase, UA, 2 view of the abdomen, hCG, and stool WBCs. Labs reviewed: CMP essentially normal. Lipase 726. CRP 0.2. CBC was normal as well. No UA results as of yet. No hCG results. X-ray of the abdomen impression: increased stool pattern with nonspecific air patterns. Reviewed with Dr. Castellanos and he agrees. UA and hCG were both negative. I have offered to obtain CT of the abdomen and pelvis to which the patient refused. Return precautions were discussed with the patient. Patient had no further questions or concerns. She agreed with plan. Discharge instructions as documented. Departure - Departure Time of Disposition: 21:14 Disposition: Home, Self-Care 01 Condition: Good Clinical Impression: Gastroenteritis Abdominal pain Qualifiers: Abdominal location: left upper quadrant Qualified Code(s): R10.12 - Left upper quadrant pain Chronic pancreatitis Qualifiers: Pancreatitis type: idiopathic Qualified Code(s): K86.1 - Other chronic pancreatitis - Discharge Information Instructions: Chronic Pancreatitis, Abdominal Pain, Adult, [id number], Pain Medicine Instructions, [id number] Referrals: PCP,None [Primary Care Provider] - Forms: ED Department Discharge Additional Instructions: Establish medical care with a PCP here locally for further management of your chronic pancreatitis. Utilize the [place] as prescribed for severe pain. In addition x-ray of the abdomen did reveal increased stool pattern suggesting you are constipated. You can have loose stools that bypass the stool bolus gviing you the idea that you're having multiple episodes of diarrhea may be associated with illness. Start taking MiraLAX one capful every day with copious amounts of water. Increase the fiber in your diet. Return to theED if you develop any new or worsening symptoms. . Wear taking the [place] will cause constipation worsening your symptoms thus take only for severe pain. - My Orders Last 24 Hours: My Active Orders 09/12/18 18:53 Peripheral IV Care [RC] . DIRECTED Abdomen 2V AP Flat Upright [CR] Stat Sodium Chloride 0.9% [Saline Flush] 10 ml FLUSH ASDIRECTED PRN Peripheral IV Insertion Adult [OM.PC] Routine 09/12/18 18:58 WBC, STOOL [OP] Stat - Assessment/Plan Last 24 Hours: My Active Orders 09/12/18 18:53 Peripheral IV Care [RC] . DIRECTED Abdomen 2V AP Flat Upright [CR] Stat Sodium Chloride 0.9% [Saline Flush] 10 ml FLUSH ASDIRECTED PRN Peripheral IV Insertion Adult [OM.PC] Routine 09/12/18 18:58 WBC, STOOL [OP] Stat
--- NOTE | 2018-09-13 06:19 | CR ---
Abdomen: Supine and upright views of the abdomen were obtained. Comparison: Prior abdominal x-ray of 02/06/14. Bowel gas pattern appears within normal limits. Several loops of air-filled small bowel are noted within the left mid to upper abdomen which are felt to be incidental. Calcifications are seen within the pelvis which are felt compatible with phleboliths. Minimal scoliosis is noted within the spine. No free air is seen. Impression: 1. Incidental findings. Nothing acute is seen on two-view abdominal x-ray. Diagnostic code #2
== END 2018-09-12 21:25 | disposition home or self-care (01) ==
LOC: JD.ED 17:35
DX: K86.1 Other chronic pancreatitis (principal); K52.9 Noninfective gastroenteritis and colitis, unspecified; K21.9 Gastro-esophageal reflux disease without esophagitis; F41.9 Anxiety disorder, unspecified; F32.9 Major depressive disorder, single episode, unspecified; F17.210 Nicotine dependence, cigarettes, uncomplicated; Z91.040 Latex allergy status; Z88.8 Allergy status to other drugs, medicaments and biological substances; Z88.2 Allergy status to sulfonamides; Z88.1 Allergy status to other antibiotic agents; Z79.899 Other long term (current) drug therapy
CPT/HCPCS: 36415; 74019; 80053; 81001; 81025; 83690; 85007; 85027; 86140; 96361; 96374; 96375; 99284; J1170; J2405; J7040

== ENCOUNTER 2019-04-08 20:35 | Emergency (ER) | payer BC ==
[2019-04-08 20:51] VITALS: BP 137/80; PULSE 72
--- NOTE | 2019-04-08 20:51 | EDM.PDOC ---
ED HPI GENERAL MEDICAL PROBLEM - General Chief Complaint: Abdominal Pain Stated Complaint: FLARE UP OF PANCREATITIS Time Seen by Provider: 04/08/19 20:51 - History of Present Illness INITIAL COMMENTS - FREE TEXT/NARRATIVE: 28-year-old female presents emergency room with a flareup of her chronic pancreatitis. This episode been going on for the last day or so she has had multiple episodes like this in the past because of these are unknown it's not alcohol-related is been labeled idiopathic pancreatitis chronic. She has some nausea associated with this and some discomfort in the upper abdomen. She denies any other complaints at this time.. Left Upper Abdomen Pain Score (Numeric/FACES): 7 - Related Data Allergies Allergy/AdvReac Type Severity Reaction Status Date / Time Latex, Natural Rubber Allergy Rash Verified 04/08/19 20:51 metronidazole [From Flagyl] Allergy Rash Verified 04/08/19 20:51 sulfamethoxazole Allergy Rash Verified 04/08/19 20:51 [From Bactrim] trimethoprim [From Bactrim] Allergy Rash Verified 04/08/19 20:51 amoxicillin trihydrate AdvReac Vomiting Verified 04/08/19 20:51 [From Augmentin] potassium clavulanate AdvReac Vomiting Verified 04/08/19 20:51 [From Augmentin] Home Meds: Home Meds Folic Acid 1 tab PO DAILY 04/29/18 [History] #103/Iron Fumarate/Fa [ ] 1 tab PO DAILY 04/29/18 [ History] Calcium Carbonate [Calcium] 500 mg PO DAILY 04/08/19 [History] L.acidoph,Paracasei, B.lactis [Probiotic] 1 cap PO DAILY 04/08/19 [History] [place]-3/DHA/Epa/Fish Oil [Fish Oil 500 MG Softgel] 1,000 mg PO DAILY 04/08/19 [ History] Ondansetron [Zofran ODT] 4 mg PO Q6H PRN #20 tab.dis 04/08/19 [Rx] traMADol [Ultram] 50 mg PO Q6H PRN #20 tab 04/08/19 [Rx] Past Medical History HEENT History: Reports: Impaired Vision Cardiovascular History: Reports: None Respiratory History: Reports: Other (See Below) Other Respiratory History: smoker x 9 years. 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 Musculoskeletal History: Reports: Other (See Below) Other Musculoskeletal History: scoliosis Neurological History: Reports: None Psychiatric History: Reports: Anxiety, Depression Endocrine/Metabolic History: Reports: None - Infectious Disease History Infectious Disease History: Reports: C-Difficile - Past Surgical History Head Surgeries/Procedures: Reports: Other (See Below) GI Surgical History: Reports: Abdominal paracentesis Social & Family History - Family History Family Medical History: Noncontributory HEENT: Reports: None - Caffeine Use Caffeine Use: Reports: Coffee - Living Situation & Occupation Living situation: Reports: Occupation: Unemployed ED ROS GENERAL - Review of Systems Review Of Systems: See Below Constitutional: Reports: No Symptoms HEENT: Reports: No Symptoms Respiratory: Reports: No Symptoms Cardiovascular: Reports: No Symptoms Endocrine: Reports: No Symptoms GI/Abdominal: Reports: No Symptoms : Reports: No Symptoms Musculoskeletal: Reports: No Symptoms Skin: Reports: No Symptoms Neurological: Reports: No Symptoms Psychiatric: Reports: No Symptoms Hematologic/Lymphatic: Reports: No Symptoms Immunologic: Reports: No Symptoms ED EXAM, GI/ABD - Physical Exam Exam: See Below General Appearance: Alert, No Apparent Distress Head: Atraumatic, Normocephalic Neck: Normal Inspection, Supple, Non-Tender, Full Range of Motion Respiratory/Chest: No Respiratory Distress, Lungs Clear, Normal Breath Sounds Cardiovascular: Normal Peripheral Pulses, Regular Rate, Rhythm, No Edema GI/Abdominal Exam: Normal Bowel Sounds, Soft, Other (He has tenderness in the epigastric and left upper quadrant no other appreciable tenderness noted no rigidity rebound or guarding noted no ascites) Back Exam: Normal Inspection. No: CVA Tenderness (L), CVA Tenderness (R) Extremities: Normal Inspection, No Pedal Edema Neurological: Alert, Oriented, Normal Cognition Course - Vital Signs Last Recorded V/S: Last Vital Signs Temp 36.8 C 04/08/19 20:48 Pulse 72 04/08/19 20:48 Resp 18 04/08/19 20:48 BP 137/80 04/08/19 20:48 Pulse Ox 100 04/08/19 20:48 - Orders/Labs/Meds Labs: Laboratory Tests 04/08/19 04/08/19 04/08/19 Range/Units 21:48 21:48 21:48 WBC 7.69 (3.98-10.04) K/mm3 RBC 4.67 (3.98-5.22) M/mm3 Hgb 14.0 (11.2-15.7) gm/dl Hct 40.9 (34.1-44.9) % MCV 87.6 (79.4-94.8) fl MCH 30.0 (25.6-32.2) pg MCHC 34.2 (32.2-35.5) g/dl RDW Std Deviation 39.2 (36.4-46.3) fL Plt Count 246 (182-369) K/mm3 MPV 9.1 L (9.4-12.3) fl Neutrophils % (Manual) 28 L (40-60) % Band Neutrophils % 0 (0-10) % Lymphocytes % (Manual) 62 H (20-40) % Atypical Lymphs % 2 % Monocytes % (Manual) 1 L (2-10) % Eosinophils % (Manual) 6 H (0.7-5.8) % Basophils % (Manual) 1 (0.1-1.2) Platelet Estimate Adequate RBC Morph Comment Normal PT 10.9 (9.7-12.0) SECONDS INR 1.00 Sodium 139 (136-145) mEq/L Potassium 3.5 (3.5-5.1) mEq/L Chloride 105 (98-107) mEq/L Carbon Dioxide 25 (21-32) mEq/L Anion Gap 12.5 (5-15) BUN 10 (7-18) mg/dL Creatinine 0.8 (0.55-1.02) mg/dL Est Cr Clr Drug Dosing 99.99 mL/min Estimated GFR (MDRD) > 60 (>60) mL/min BUN/Creatinine Ratio 12.5 L (14-18) Glucose 89 (74-106) mg/dL Calcium 8.9 (8.5-10.1) mg/dL Total Bilirubin 0.4 (0.2-1.0) mg/dL AST 14 L (15-37) U/L ALT 31 (14-59) U/L Alkaline Phosphatase 79 (46-116) U/L Total Protein 7.8 (6.4-8.2) g/dl Albumin 4.3 (3.4-5.0) g/dl Globulin 3.5 gm/dL Albumin/Globulin Ratio 1.2 (1-2) Amylase 163 H (25-115) U/L Lipase 983 H (73-393) U/L Urine Color (Yellow) Urine Appearance (Clear) Urine pH (5.0-8.0) Ur Specific [place] (1.005-1.030) Urine Protein (Negative) Urine Glucose (UA) (Negative) Urine Ketones (Negative) Urine Occult Blood (Negative) Urine Nitrite (Negative) Urine Bilirubin (Negative) Urine Urobilinogen (0.2-1.0) Ur Leukocyte Esterase (Negative) Urine RBC (0-5) /hpf Urine WBC (0-5) /hpf Ur Epithelial Cells (0-5) /hpf Urine Bacteria (FEW) /hpf Urine Mucus (FEW) /hpf 04/08/19 Range/Units 21:50 WBC (3.98-10.04) K/mm3 RBC (3.98-5.22) M/mm3 Hgb (11.2-15.7) gm/dl Hct (34.1-44.9) % MCV (79.4-94.8) fl MCH (25.6-32.2) pg MCHC (32.2-35.5) g/dl RDW Std Deviation (36.4-46.3) fL Plt Count (182-369) K/mm3 MPV (9.4-12.3) fl Neutrophils % (Manual) (40-60) % Band Neutrophils % (0-10) % Lymphocytes % (Manual) (20-40) % Atypical Lymphs % % Monocytes % (Manual) (2-10) % Eosinophils % (Manual) (0.7-5.8) % Basophils % (Manual) (0.1-1.2) Platelet Estimate RBC Morph Comment PT (9.7-12.0) SECONDS INR Sodium (136-145) mEq/L Potassium (3.5-5.1) mEq/L Chloride (98-107) mEq/L Carbon Dioxide (21-32) mEq/L Anion Gap (5-15) BUN (7-18) mg/dL Creatinine (0.55-1.02) mg/dL Est Cr Clr Drug Dosing mL/min Estimated GFR (MDRD) (>60) mL/min BUN/Creatinine Ratio (14-18) Glucose (74-106) mg/dL Calcium (8.5-10.1) mg/dL Total Bilirubin (0.2-1.0) mg/dL AST (15-37) U/L ALT (14-59) U/L Alkaline Phosphatase (46-116) U/L Total Protein (6.4-8.2) g/dl Albumin (3.4-5.0) g/dl Globulin gm/dL Albumin/Globulin Ratio (1-2) Amylase (25-115) U/L Lipase (73-393) U/L Urine Color Yellow (Yellow) Urine Appearance Clear (Clear) Urine pH 6.5 (5.0-8.0) Ur Specific [place] 1.010 (1.005-1.030) Urine Protein Negative (Negative) Urine Glucose (UA) Negative (Negative) Urine Ketones Negative (Negative) Urine Occult Blood Negative (Negative) Urine Nitrite Negative (Negative) Urine Bilirubin Negative (Negative) Urine Urobilinogen 0.2 (0.2-1.0) Ur Leukocyte Esterase Negative (Negative) Urine RBC Not seen (0-5) /hpf Urine WBC Not seen (0-5) /hpf Ur Epithelial Cells 0-5 (0-5) /hpf Urine Bacteria Rare (FEW) /hpf Urine Mucus Not seen (FEW) /hpf Meds: Medications Discontinued Medications Generic Name Dose Route Start Last Admin Trade Name Freq PRN Reason Stop Dose Admin Lactated Ringer's 1,000 mls @ 999 mls/hr 04/08/19 21:22 04/08/19 22:00 Ringers, Lactated IV 04/08/19 22:22 999 mls/hr .BOLUS ONE Administration Ondansetron HCl 4 mg 04/08/19 21:22 04/08/19 22:00 Zofran IVPUSH 04/08/19 21:23 4 mg ONETIME ONE Administration - Re-Assessments/Exams Free Text/Narrative Re-Assessment/Exam: 04/08/19 22:41 She reviewed with the patient at this point she would like to hold off on repeating the CT and would rather attempt to treat this as an outpatient she agrees to clear liquid diet until she follows up with her regular doctor on Wednesday she needs a refill of her Zofran and tramadol. Departure - Departure Time of Disposition: 22:42 Disposition: Home, Self-Care 01 Clinical Impression: Pancreatitis - Discharge Information Prescriptions: Ondansetron [Zofran ODT] 4 mg PO Q6H PRN #20 tab.dis PRN Reason: Nausea/Vomiting traMADol [Ultram] 50 mg PO Q6H PRN #20 tab PRN Reason: Abdominal Pain Referrals: Ronnie Elizondo MD [Primary Care Provider] - Forms: ED Department Discharge Additional Instructions: Return to the emergency room with any questions problems worsening symptoms. Follow-up Dr. Hines on Wednesday Take the medications as directed
[2019-04-08] MEDS ORDERED: Ondansetron 4 MG/2 ML SDV IVPUSH ONE (21:22)
[2019-04-08] MEDS ORDERED: Lactated Ringers 1,000 ML IV ONE (21:22)
== END 2019-04-08 23:23 | disposition home or self-care (01) ==
LOC: JD.ED 20:35
DX: K85.90 Acute pancreatitis without necrosis or infection, unspecified (principal); F17.210 Nicotine dependence, cigarettes, uncomplicated; Z88.0 Allergy status to penicillin; Z88.8 Allergy status to other drugs, medicaments and biological substances; Z88.1 Allergy status to other antibiotic agents; Z91.040 Latex allergy status; Z88.2 Allergy status to sulfonamides
CPT/HCPCS: 36415; 80053; 81001; 82150; 83690; 85007; 85027; 85610; 96361; 96374; 99284; J2405; J7120

== ENCOUNTER 2019-07-26 23:27 | Emergency (ER) | payer BC ==
[2019-07-26 23:42] VITALS: BP 93/55; PULSE 101
--- NOTE | 2019-07-27 00:50 | EDM.PDOC ---
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 Cobb is a pleasant 28-year-old woman with a past medical history significant for untreated GERD, untreated anxiety and depression, and chronic pancreatitis, who states that she is now about 12-1/2 weeks gestation, . Her LMP was 04/28/2018. She is status-post 2 obstetric ultrasounds with this , both at her Team Primary Care Physician's office, the first on 06/15/2019, the second this past , 07/20/2019, at which time the gestational age was measured at 11 weeks 4 or 5 days. Both ultrasounds found a SLIUP with a small subchorionic hematoma. The patient states that her Team Primary Care Physician was not concerned, because if the hematoma were going to cause a problem, it likely would have already. The patient now presents to the ED after developing vaginal bleeding and pelvic cramps around 23:00 this evening. She soaked through one pad and passed 2 clots , however, the amount of bleeding has since diminished. The patient's blood type is O-POS. The patient was diagnosed with influenza a 3 weeks ago, however, she has not otherwise recently been ill with fever, chills, cough, dyspnea, chest pain, palpitations, nausea, vomiting, constipation, diarrhea, abdominal pain, urinary symptoms, recent joint aches, headaches, or rashes. The patient's PCP is MARGO Craven. Her Team Primary Care Physician is Dr. Bin Zamora. Her next appointment with him is in late July. She received an influenza vaccine this season. Lower Abdominal Pain Score (Numeric/FACES): 3 - Related Data Allergies Allergy/AdvReac Type Severity Reaction Status Date / Time Latex, Natural Rubber Allergy Rash Verified 07/26/19 23:43 metronidazole [From Flagyl] Allergy Rash Verified 07/26/19 23:43 sulfamethoxazole Allergy Rash Verified 07/26/19 23:43 [From Bactrim] trimethoprim [From Bactrim] Allergy Rash Verified 07/26/19 23:43 amoxicillin trihydrate AdvReac Vomiting Verified 07/26/19 23:43 [From Augmentin] potassium clavulanate AdvReac Vomiting Verified 07/26/19 23:43 [From Augmentin] Home Meds: Home Meds Folic Acid 1 tab PO DAILY 04/29/18 [History] #103/Iron Fumarate/Fa [ ] 1 tab PO DAILY 04/29/18 [ History] Calcium Carbonate [Calcium] 500 mg PO DAILY 04/08/19 [History] L.acidoph,Paracasei, B.lactis [Probiotic] 1 cap PO DAILY 04/08/19 [History] [place]-3/DHA/Epa/Fish Oil [Fish Oil 500 MG Softgel] 1,000 mg PO DAILY 04/08/19 [ History] Ondansetron [Zofran ODT] 4 mg PO Q6H PRN #20 tab.dis 04/08/19 [Rx] Docusate Sodium [Colace] 1 cap PO DAILY 07/26/19 [History] Progesterone, Micronized [Progesterone] 1 supp VAG BID 07/26/19 [History] Past Medical History HEENT History: Reports: Impaired Vision Gastrointestinal History: Reports: GERD (untreated), Pancreatitis (chronic) COMMERCIAL CREDIT REVIEWER History: Reports: Spontaneous (x 3) : 6 Para: 2 Musculoskeletal History: Reports: Other (See Below) (Scoliosis) Psychiatric History: Reports: Anxiety (untreated), Depression (untreated) - Infectious Disease History Infectious Disease History: Reports: C-Difficile - Past Surgical History HEENT Surgical History: Reports: Naso-Sinus Surgery, Oral Surgery (wisdom teeth extraction) GI Surgical History: Reports: Abdominal paracentesis, Cholecystectomy (2011), ERCP (x 5, each with placement of a biliary stent) Female Surgical History: Reports: D&C (x 2) Social & Family History - Family History Family Medical History: Noncontributory HEENT: Reports: None - Tobacco Use Smoking Status *Q: Current Every Day Smoker Years of Tobacco use: 12 Packs/Tins Daily: 0.5 Packs/Tins Daily Comment: Down from 1.5 ppd - Caffeine Use Caffeine Use: Reports: Coffee - Alcohol Use Alcohol Use History: Yes Alcohol Use Frequency: Rarely - Recreational Drug Use Recreational Drug Use: No - Living Situation & Occupation Living situation: Reports: , with Spouse, with Family (2 kids) 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 ED EXAM - Physical Exam Exam: See Below Exam Limited By: No Limitations General Appearance: Alert, WD/WN, No Apparent Distress Eye Exam: Bilateral Eye: EOMI, Normal Inspection Ears: Normal External Exam, Hearing Grossly Normal Nose: Normal Inspection Throat/Mouth: Normal Inspection, Normal Lips, Normal Voice, No Airway Compromise Head: Atraumatic, Normocephalic Neck: Normal Inspection, Full Range of Motion Respiratory/Chest: No Respiratory Distress, Lungs Clear, Normal Breath Sounds, No Accessory Muscle Use Cardiovascular: Normal Peripheral Pulses, Regular Rate, Rhythm, No Edema, No Gallop, No JVD, No Murmur, No Rub GI/Abdominal Exam: Normal Bowel Sounds, Soft, No Organomegaly, No Distention, No Abnormal Bruit, Tender (Minimal, to the upper left side of the uterus. Nontender elsewhere.), Mass (Gravid uterus consistent with dates) Rectal Exam: Deferred Back Exam: Normal Inspection, Full Range of Motion, NT Extremities: Normal Inspection, Normal Range of Motion, No Pedal Edema, Normal Capillary Refill Neurological: Alert, Oriented, Normal Cognition, No Motor/Sensory Deficits Psychiatric: Normal Affect Skin Exam: Warm, Dry, Intact, Normal Color, No Rash Course - Vital Signs Last Recorded V/S: Last Vital Signs Temp 36.9 C 07/26/19 23:33 Pulse 101 H 07/26/19 23:33 Resp 18 07/26/19 23:33 BP 93/55 L 07/26/19 23:33 Pulse Ox - Orders/Labs/Meds Orders: Active Orders 24 hr Category Date Time Status OB 1st Tri Sgl 1st Gest [US] Stat Exams 07/27/19 00:43 Ordered Labs: Laboratory Tests 07/27/19 Range/Units 00:55 HCG, Quant 58972.0 mIU/mL - Re-Assessments/Exams Free Text/Narrative Re-Assessment/Exam: 07/27/19 00:46 I have ordered a quantitative hCG and an obstetric ultrasound. There is good documentation that the patient's blood type is O-POS, therefore RhoGAM is not indicated. 07/27/19 02:15 Transabdominal ultrasound is read by Darcie as: 1. Early live intrauterine with a sonographic gestational age of 12 weeks 6 days. The sonographic EDC is 02/02/2020 2. Small crescentic fluid collection lying adjacent to the gestational sac measuring 2.9 x 0.8 cm consistent with a small subchorionic hemorrhage 07/27/19 02:47 Test results discussed with the patient and her . While I don't have the prior obstetric ultrasounds reports available, by the patient's history, the subchorionic bleed is stable. The patient is aware that there is nothing that we can do about it; she was mainly concerned about whether or not she suffered a miscarriage, which she has not. I recommended that she contact the office of Dr. Zamora later this morning, and unless they want to see her earlier, to follow-up at her next scheduled appointment at the end of this month. Departure - Departure Time of Disposition: 02:49 Disposition: Home, Self-Care 01 Condition: Good Clinical Impression: Subchorionic hematoma in first trimester - Discharge Information *PRESCRIPTION DRUG MONITORING PROGRAM REVIEWED*: Not Applicable *COPY OF PRESCRIPTION DRUG MONITORING REPORT IN PATIENT LUCIEN: Not Applicable Instructions: Subchorionic Hematoma Referrals: Bin Zamora MD [Primary Care Provider] - Gloria Fernandez PA-C [Physician [employer] Outfit Supervisor] - Forms: ED Department Discharge Additional Instructions: You were seen in the emergency room after developing vaginal bleeding and pelvic cramps, while . Workup in the ER included a quantitative hCG ( hormone), and an obstetric ultrasound. Your quantitative hCG returned at 93,261, which is where we would expect it to be at your gestational age. Your obstetric ultrasound found a single live intrauterine at 12 weeks 6 days, with a small adjacent subchorionic hematoma. Based on your history, the hematoma is stable. We recommend that you contact the office of your Team Primary Care Physician, Dr. Bin Zamora , this morning, to let them know of your ER visit. They may want to see you earlier than your currently scheduled appointment at the end of this month. If any other problems, please do not hesitate to return to the ER. Sepsis Event Note - Evaluation Sepsis Screening Result: No Definite Risk - Focused Exam Vital Signs: Vital Signs Temp Pulse Resp BP 07/26/19 23:33 36.9 C 101 H 18 93/55 L Date Exam was Performed: 07/27/19 Time Exam was Performed: 03:26 - My Orders Last 24 Hours: My Active Orders 07/27/19 00:43 OB 1st Tri Sgl 1st Gest [US] Stat - Assessment/Plan Last 24 Hours: My Active Orders 07/27/19 00:43 OB 1st Tri Sgl 1st Gest [US] Stat
--- NOTE | 2019-07-27 08:19 | US ---
First trimester obstetrical ultrasound: Multiple real-time images were obtained transabdominally. Comparison: No previous study for current . Dates: LMP: LMP given as 04/28/19, ELENA 02/02/20, gestational age 12 weeks 6 days Current ultrasound: ELENA 02/02/20, gestational age 12 weeks 6 days Single intrauterine gestation is seen. Amniotic fluid volume is normal. Small subchorionic hemorrhage is identified. This hemorrhage measures 2.9 x 0.8 x 1.5 cm. Maternal right ovary not visualized, maternal left ovary is normal. Measurements: [place]-rump length: 6.43 cm - 12 weeks 6 days Heart rate: 169 bpm Impression: 1. Single intrauterine gestation. Dates as noted above. 2. Subchorionic hemorrhage is identified. Diagnostic code #3 This report was dictated in [place] Standard Time
== END 2019-07-27 03:10 | disposition home or self-care (01) ==
LOC: JD.ED 23:27
DX: O20.8 Other hemorrhage in early pregnancy (principal); O99.331 Smoking (tobacco) complicating pregnancy, first trimester; F17.210 Nicotine dependence, cigarettes, uncomplicated; Z91.040 Latex allergy status; Z88.1 Allergy status to other antibiotic agents; Z88.2 Allergy status to sulfonamides; Z3A.12 12 weeks gestation of pregnancy
CPT/HCPCS: 36415; 76801; 76801-26; 84702; 99283; 99284-25

== ENCOUNTER 2020-01-31 15:32 | Inpatient (IN) | payer BC ==
[2020-02-01] MEDS ORDERED: Nalbuphine 10 MG/ML Syringe IVPUSH PRN (13:22)
[2020-02-01] MEDS ORDERED: Sodium Chloride 0.9% 10 ML Syringe FLUSH PRN (13:22)
[2020-02-01] MEDS ORDERED: Oxytocin/Lactated Ringers 10 UNIT/1,000 ML BAG IV SCH (13:30)
[2020-02-01] MEDS ORDERED: ePHEDrine 50 MG/ML SDV IVPUSH PRN (14:01)
[2020-02-01] MEDS ORDERED: diphenhydrAMINE 50 MG/ML SDV IVPUSH PRN (14:01)
[2020-02-01] MEDS ORDERED: Bupivacaine/fentaNYL/NS 100 ML Bag EPIDUR PRN (14:01)
[2020-02-01] MEDS ORDERED: fentaNYL 100 MCG/2 ML SDV EPIDUR PRN (14:01)
--- NOTE | 2020-02-01 14:09 | PCM.PREANE ---
Preanesthetic Assessment - Procedure Proposed Procedure: Continuous labor epidural - Anesthesia/Transfusion/Family Hx Anesthesia History: Prior Anesthesia Without Reaction Transfusion History: Prior Transfusion Without Reaction - Review of Systems General: No Symptoms Pulmonary: No Symptoms Cardiovascular: No Symptoms Gastrointestinal: No Symptoms Neurological: No Symptoms Other: Reports: None - Physical Assessment Height: 1.7 m Weight: 84.277 kg ASA Class: 2 Mental Status: Alert & Oriented x3 Airway Class: Mallampati = 2 Dentition: Reports: Normal Dentition, [place](s) Thyro-Mental Finger Breadths: 3 Mouth Opening Finger Breadths: 3 ROM/Head Extension: Full Lungs: Clear to Auscultation, Normal Respiratory Effort Cardiovascular: Regular Rate, Regular Rhythm - Lab Values: Laboratory Last Values WBC 9.69 K/mm3 (3.98-10.04) 02/01/20 13:35 RBC 3.72 M/mm3 (3.98-5.22) L 02/01/20 13:35 Hgb 11.5 gm/dl (11.2-15.7) 02/01/20 13:35 Hct 34.8 % (34.1-44.9) 02/01/20 13:35 MCV 93.5 fl (79.4-94.8) 02/01/20 13:35 MCH 30.9 pg (25.6-32.2) 02/01/20 13:35 MCHC 33.0 g/dl (32.2-35.5) 02/01/20 13:35 RDW Std Deviation 44.9 fL (36.4-46.3) 02/01/20 13:35 Plt Count 176 K/mm3 (182-369) L 02/01/20 13:35 MPV 9.9 fl (9.4-12.3) 02/01/20 13:35 Neut % (Auto) 71.7 % (34.0-71.1) H 02/01/20 13:35 Lymph % (Auto) 20.6 % (19.3-51.7) 02/01/20 13:35 White % (Auto) 5.8 % (4.7-12.5) 02/01/20 13:35 Eos % (Auto) 0.8 (0.7-5.8) 02/01/20 13:35 Baso % (Auto) 0.4 % (0.1-1.2) 02/01/20 13:35 Neut # (Auto) 6.94 K/mm3 (1.56-6.13) H 02/01/20 13:35 Lymph # (Auto) 2.00 K/mm3 (1.18-3.74) 02/01/20 13:35 White # (Auto) 0.56 K/mm3 (0.24-0.36) H 02/01/20 13:35 Eos # (Auto) 0.08 K/mm3 (0.04-0.36) 02/01/20 13:35 Baso # (Auto) 0.04 K/mm3 (0.01-0.08) 02/01/20 13:35 - Allergies Allergies/Adverse Reactions: Allergies Allergy/AdvReac Type Severity Reaction Status Date / Time Latex, Natural Rubber Allergy Rash Verified 07/26/19 23:43 metronidazole [From Flagyl] Allergy Rash Verified 07/26/19 23:43 sulfamethoxazole Allergy Rash Verified 07/26/19 23:43 [From Bactrim] trimethoprim [From Bactrim] Allergy Rash Verified 07/26/19 23:43 amoxicillin trihydrate AdvReac Vomiting Verified 07/26/19 23:43 [From Augmentin] potassium clavulanate AdvReac Vomiting Verified 07/26/19 23:43 [From Augmentin] - Acknowledgements Anesthesia Type Planned: Epidural Pt an Appropriate Candidate for the Planned Anesthesia: Yes Alternatives and Risks of Anesthesia Discussed w Pt/Guardian: Yes Pt/Guardian Understands and Agrees with Anesthesia Plan: Yes PreAnesthesia Questionnaire HEENT History: Reports: Impaired Vision Cardiovascular History: Reports: None Respiratory History: Reports: Other (See Below) Other Respiratory History: former smoker x 9 years. had 5-6 cig aday. Quit 2019. Gastrointestinal History: Reports: GERD (untreated), Pancreatitis (chronic) Other Gastrointestinal History: History of C-dff Genitourinary History: Reports: None PERSONAL CHEF History: Reports: Spontaneous (x 3) Other OB/BYN History: D&C Neurological History: Reports: None Psychiatric History: Reports: Anxiety (untreated), Depression (untreated) Endocrine/Metabolic History: Reports: None - Infectious Disease History Infectious Disease History: Reports: C-Difficile - Past Surgical History HEENT Surgical History: Reports: Naso-Sinus Surgery, Oral Surgery (wisdom teeth extraction) GI Surgical History: Reports: Abdominal paracentesis, Cholecystectomy (2011), ERCP (x 5, each with placement of a biliary stent) Female Surgical History: Reports: D&C (x 2) - SUBSTANCE USE Smoking Status *Q: Former Smoker - HOME MEDS Home Medications: Home Meds Folic Acid 1 tab PO DAILY 04/29/18 [History] #103/Iron Fumarate/Fa [ ] 1 tab PO DAILY 04/29/18 [History] Calcium Carbonate [Calcium] 500 mg PO DAILY 04/08/19 [History] L.acidoph,Paracasei, B.lactis [Probiotic] 1 cap PO DAILY 04/08/19 [History] [place]-3/DHA/Epa/Fish Oil [Fish Oil 500 MG Softgel] 1,000 mg PO DAILY 04/08/19 [History] Ondansetron [Zofran ODT] 4 mg PO Q6H PRN #20 tab.dis 04/08/19 [Rx] Docusate Sodium [Colace] 1 cap PO DAILY 07/26/19 [History] Progesterone, Micronized [Progesterone] 1 supp VAG BID 07/26/19 [History] - CURRENT (IN HOUSE) MEDS Current Meds: Current Medications Oxytocin/Lactated Ringer's (Pitocin In Lr 10 Units/1,000 Ml) 10 unit in 1,000 mls @ 500 mls/hr IV .CONTINUOUS KATTY Lactated Ringer's (Ringers, Lactated) 1,000 mls @ 100 mls/hr IV ASDIRECTED KATTY Nalbuphine HCl (Nubain) 10 mg IVPUSH Q2H PRN PRN Reason: Pain Sodium Chloride (Saline Flush) 10 ml FLUSH ASDIRECTED PRN PRN Reason: Keep Vein Open
[2020-02-01] MEDS: Lactated Ringers 1,000 ML IV SCH ×3 (14:58→16:17)
--- NOTE | 2020-02-01 16:13 | PCM.LDHP ---
L&D History of Present Illness - General Date of Service: 02/01/20 Admit Problem/Dx: Admission Diagnosis/Problem Admission Diagnosis/Problem 02/01/20 15:22 Source of Information: Patient History Limitations: Reports: No Limitations - History of Present Illness Introduction:: Marita is a 29-year-old white 6 para 2031 female at 39-4/7 weeks' gestational age with an ELENA of 02/04/2020 who presents to labor and delivery for induction of labor on the afternoon of 02/01/2020. Upon examination, her cervix is 3 cm dilated, 90% effaced, -2 station, posterior/mid position. Patient is hortencia well and artificial rupture of membranes was initiated at approximately 1440. heart rate monitoring shows good variability, good accelerations, and no decelerations. 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 LMP was 04/28/2019 and she had regular cycles prior to becoming . No control was utilized at the time of conception. Abnormal Pap in the past, but normal follow-up. History of recurrent loss. D&C for retained products in 2018. 5 prior outcomes: 05/04/2018 - spontaneous at 6 weeks; 05/26/2016 - 7 lbs. 6 oz. baby boy at 38-3/7 weeks, , 8 hour labor; 2014 - spontaneous at 5 weeks; 01/28/2015 - 8 lbs. 10 oz. baby boy at 40-/7 weeks, , 14 hour labor; 07/22/2013 - spontaneous at 11 weeks history: LMP was 04/28/2019 with regular cycles. ELENA of 02/04/2020 supported by early ultrasound at 6-4/7 weeks' gestational age on 06/15/2019. Subchorionic hemorrhage was seen on subsequent ultrasound on 07/10/2019 at 11-4/7 weeks' gestational age. Follow-up ultrasound showed resolution, normal growth parameters and adequate DANK. Kidneys were not visualized due to positioning, but ultrasound on 11/15/2019 at 28-3/7 weeks' gestation showed normal architecture of the kidneys. At this time, baby was in cephalic position. Fundal height was c onsistent with dating throughout the . She plans to breast feed after delivery. She requests an epidural as labor progresses. Risk factors for include: bleeding early in , history of depression, history of pancreatitis, tobacco use during Labs: Blood type is O positive with negative antibody screen. Initial labs showed hemoglobin of 12.8 g/dL and platelets of 224,000. Rubella immune. RPR was nonreactive. Gonorrhea and chlamydia screens were negative. Hepatitis B surface antigen and HIV were negative. 1 hour GTT was 102. Second trimester labs showed hemoglobin of 11.2 g/dL and platelets of 224,000. GBS was negative. Past medical history: 1. Heart murmur 2. History of depression - stable on Sertraline, weaned off in October 2019 3. History of C. difficile requiring fecal transplant 4. Chronic pancreatitis 5. Recurrent loss - 2017 Past surgical history: 1. D&C - 2017 2. Cholecystectomy 3. Sinus surgery 4. Pancreatic stent placement and removal 5. [place] teeth 6. Root canal Allergies: 1. Latex - rash 2. Bactrim - rash 3. Augmentin 4. Metronidazole - itching, rash Current medications: 1. tablet PO daily 2. Folic acid 1 mg PO daily 3. Fish oil 500 mg PO daily 4. Calcium 1000 mg + Vitamin D PO daily 5. Probiotic capsule PO daily 6. Colace capsule PRN for constipation 7. Iron 325 mg PO daily 8. Miralax powder PRN for constipation Family history: Mother is alive and well. Father is alive and well. 3 sisters, all alive and well. 1 with extreme PTSD. Maternal grandmother is alive with a history of diabetes. She is on oral medication for this. Maternal grandfather is secondary to prostate and colon cancer in his 80s. Paternal grandmother is alive at the age of 90. Pathernal grandfather also alive at the age of 90. Positive family history of depression and/or anxiety. No family history of bleeding/clotting disorders, anesthesia-related disorders, or -related problems. Social history: Marita is to Fly. They live in [place], [place]. 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 Prior to , she smoked 1 pack per day. During , she cut back to 1/2 pack per day. No alcohol or illicit substance use during . Pain Score: 4 - Related Data Allergies/Adverse Reactions: Allergies Allergy/AdvReac Type Severity Reaction Status Date / Time Latex, Natural Rubber Allergy Rash Verified 07/26/19 23:43 metronidazole [From Flagyl] Allergy Rash Verified 07/26/19 23:43 sulfamethoxazole Allergy Rash Verified 07/26/19 23:43 [From Bactrim] trimethoprim [From Bactrim] Allergy Rash Verified 07/26/19 23:43 amoxicillin trihydrate AdvReac Vomiting Verified 07/26/19 23:43 [From Augmentin] potassium clavulanate AdvReac Vomiting Verified 07/26/19 23:43 [From Augmentin] Home Medications: Home Meds Folic Acid 1 tab PO DAILY 04/29/18 [History] #103/Iron Fumarate/Fa [ ] 1 tab PO DAILY 04/29/18 [History] Calcium Carbonate [Calcium] 500 mg PO DAILY 04/08/19 [History] L.acidoph,Paracasei, B.lactis [Probiotic] 1 cap PO DAILY 04/08/19 [History] [place]-3/DHA/Epa/Fish Oil [Fish Oil 500 MG Softgel] 1,000 mg PO DAILY 04/08/19 [History] Ondansetron [Zofran ODT] 4 mg PO Q6H PRN #20 tab.dis 04/08/19 [Rx] Docusate Sodium [Colace] 1 cap PO DAILY 07/26/19 [History] Progesterone, Micronized [Progesterone] 1 supp VAG BID 07/26/19 [History] Past Medical History HEENT History: Reports: Impaired Vision Cardiovascular History: Reports: None Respiratory History: Reports: Other (See Below) Other Respiratory History: former smoker x 9 years. had 5-6 cig aday. Quit 2019. 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: Reports: Spontaneous (x 3) Other OB/BYN History: D&C Musculoskeletal History: Reports: Other (See Below) Neurological History: Reports: None Psychiatric History: Reports: Anxiety (untreated), Depression (untreated) Endocrine/Metabolic History: Reports: None - Infectious Disease History Infectious Disease History: Reports: C-Difficile - Past Surgical History HEENT Surgical History: Reports: Naso-Sinus Surgery, Oral Surgery (wisdom teeth extraction) GI Surgical History: Reports: Abdominal paracentesis, Cholecystectomy (2010), ERCP (x 5, each with placement of a biliary stent) Female Surgical History: Reports: D&C (x 2) Social & Family History - Family History Family Medical History: Noncontributory HEENT: Reports: None - Tobacco Use Smoking Status *Q: Former Smoker Years of Tobacco use: 13 Packs/Tins Daily: 0.5 Used Tobacco, but Quit: Yes Month/Year Tobacco Last Used: 09/07 Second Hand Smoke Exposure: No - Caffeine Use Caffeine Use: Reports: Tea - Recreational Drug Use Recreational Drug Use: No - Living Situation & Occupation Living situation: Reports: , with Spouse, with Family (2 kids) Occupation: Employed (Daycare) H&P Review of Systems - Review of Systems: Review Of Systems: See Below General: Reports: No Symptoms HEENT: Reports: No Symptoms Pulmonary: Reports: No Symptoms Cardiovascular: Reports: No Symptoms Gastrointestinal: Reports: No Symptoms Genitourinary: Reports: No Symptoms Musculoskeletal: Reports: No Symptoms Skin: Reports: No Symptoms Psychiatric: Reports: No Symptoms Neurological: Reports: No Symptoms Hematologic/Lymphatic: Reports: No Symptoms Immunologic: Reports: No Symptoms, Other (see allergies in HPI) L&D Exam - Exam Exam: See Below - Vital Signs Weight: 185 lb 12.8 oz - OB Specific Contraction Intensity: Mild Movement: Active Heart Tones: Present Heart Rate (FHR) Variability: Moderate (6-25 bmp) Presentation: Vertex - Ward Score Ward Score Cervix Position: Midposition Ward Score Consistency: Soft Ward Score Effacement: >80% Ward Score Dilation: 3-4 cm Ward Score Infant's Station: -2 Ward Score Total: 9 - Exam General: Alert, Oriented HEENT: Conjunctiva Clear, EOMI, Mucosa Moist & Sturgeon, Posterior Pharynx Clear Neck: Supple, Trachea Midline Lungs: Clear to Auscultation, Normal Respiratory Effort Cardiovascular: Regular Rate, Regular Rhythm GI/Abdominal Exam: Non-Tender, Other (gravid abdomen) Genitourinary: Normal external exam, Normal bimanual exam, Cervical dilitation. No: Vaginal bleeding Back Exam: Normal Inspection Extremities: Normal Inspection, No Pedal Edema, Normal Capillary Refill Skin: Warm, Dry, Intact - Patient Data Lab Results Last 24 hrs: Laboratory Results - last 24 hr 02/01/20 02/01/2001/31/20 Range/Units 13:32 13:35 13:35 WBC 9.69 (3.98-10.04) K/mm3 RBC 3.72 L (3.98-5.22) M/mm3 Hgb 11.5 (11.2-15.7) gm/dl Hct 34.8 (34.1-44.9) % MCV 93.5 (79.4-94.8) fl MCH 30.9 (25.6-32.2) pg MCHC 33.0 (32.2-35.5) g/dl RDW Std Deviation 44.9 (36.4-46.3) fL Plt Count 176 L (182-369) K/mm3 MPV 9.9 (9.4-12.3) fl Neut % (Auto) 71.7 H (34.0-71.1) % Lymph % (Auto) 20.6 (19.3-51.7) % Lamb % (Auto) 5.8 (4.7-12.5) % Eos % (Auto) 0.8 (0.7-5.8) Baso % (Auto) 0.4 (0.1-1.2) % Neut # (Auto) 6.94 H (1.56-6.13) K/mm3 Lymph # (Auto) 2.00 (1.18-3.74) K/mm3 Lamb # (Auto) 0.56 H (0.24-0.36) K/mm3 Eos # (Auto) 0.08 (0.04-0.36) K/mm3 Baso # (Auto) 0.04 (0.01-0.08) K/mm3 RPR Non-reactive (NONREACTIVE) COVID-19 ([place]) Negative (NEGATIVE) Result Diagrams: 02/01/20 13:35 Problem List Initiated/Reviewed/Updated: Yes Orders Last 24hrs: Active Orders 24 hr Category Date Time Status Activity as Tolerated [RC] PFP Care 02/01/20 13:22 Active Communication Order [RC] ASDIRECTED Care 02/01/20 13:22 Active Heart Tones [RC] ASDIRECTED Care 02/01/20 13:22 Active Non Stress Test [RC] PER UNIT ROUTINE Care 02/01/20 13:22 Active Notify Provider [RC] ASDIRECTED Care 02/01/20 14:01 Active Notify Provider [RC] PFP Care 02/01/20 13:22 Active Notify Provider [RC] PRN Care 02/01/20 13:22 Active Peripheral IV Care [RC] . DIRECTED Care 02/01/20 13:22 Active Vital Signs [RC] PER UNIT ROUTINE Care 02/01/20 13:22 Active Regular Diet [DIET] Diet 02/01/20 Lunch Active Bupivacaine/fentaNYL/NS [fentaNYL/Bupivacaine/NS 2 MCG- Med 02/01/20 14:01 Active 0.125% 100 ML] 100 ml EPIDUR ASDIRECTED PRN Lactated Ringers [Ringers, Lactated] 1,000 ml Med 02/01/20 13:30 Active IV ASDIRECTED Nalbuphine [Nubain] Med 02/01/20 13:22 Active 10 mg IVPUSH Q2H PRN Oxytocin/Lactated Ringers [Pitocin in LR 10 Units/1,000 Med 02/01/20 13:30 Active ML] 10 unit in 1,000 ml IV .CONTINUOUS Sodium Chloride 0.9% [Saline Flush] Med 02/01/20 13:22 Active 10 ml FLUSH ASDIRECTED PRN diphenhydrAMINE [Benadryl] Med 02/01/20 14:01 Active 25 mg IVPUSH Q6H PRN ePHEDrine [ePHEDrine sulfate] Med 02/01/20 14:01 Active 5 mg IVPUSH ASDIRECTED PRN fentaNYL [Sublimaze] Med 02/01/20 14:01 Active 100 mcg EPIDUR Q3H PRN Electronic Heart Tones Ext w TOCO [WOMSER] Oth 02/01/20 13:22 Ordered Routine Electronic Heart Tones Internal [WOMSER] Per Unit Oth 02/01/20 13:22 Ordered Routine Peripheral IV Insertion Adult [OM.PC] Routine Oth 02/01/20 13:22 Ordered Resuscitation Status Routine Resus Stat 02/01/20 13:22 Ordered Medication Orders Diphenhydramine HCl (Benadryl) 25 mg IVPUSH Q6H PRN PRN Reason: pruritis Ephedrine Sulfate (Ephedrine Sulfate) 5 mg IVPUSH ASDIRECTED PRN PRN Reason: Hypotension Fentanyl (Sublimaze) 100 mcg EPIDUR Q3H PRN PRN Reason: Pain Last Admin: 02/01/20 14:59 Dose: 100 mcg Documented by: ROB Fentanyl/Bupivacaine HCl (Fentanyl/Bupivacaine/Ns 2 Mcg-0.125% 100 Ml) 100 ml EPIDUR ASDIRECTED PRN PRN Reason: Pain Last Admin: 02/01/20 14:59 Dose: 100 ml Documented by: ROB Oxytocin/Lactated Ringer's (Pitocin In Lr 10 Units/1,000 Ml) 10 unit in 1,000 mls @ 500 mls/hr IV .CONTINUOUS KATTY Lactated Ringer's (Ringers, Lactated) 1,000 mls @ 100 mls/hr IV ASDIRECTED KATTY Last Admin: 02/01/20 14:58 Dose: 100 mls/hr Documented by: ROB Nalbuphine HCl (Nubain) 10 mg IVPUSH Q2H PRN PRN Reason: Pain Sodium Chloride (Saline Flush) 10 ml FLUSH ASDIRECTED PRN PRN Reason: Keep Vein Open Assessment/Plan Comment:: Assessment: 1. Marita is a 29-year-old white 6 para 2031 female at 39-4/7 weeks' gestational age with an ELENA of 02/04/2020 who presents for induction of labor 2. Risk factors for : bleeding early in , history of depression, history of pancreatitis, tobacco use during 3. GBS negative 4. Rubella immune 5. RPR nonreactive 6. Patient desires epidural as labor progresses Plan: 1. Artificial rupture of membranes performed and patient is in agreement. Risks and benefits of Pitocin induction were discussed in the event that AROM does not provide a good pattern of labor. 2. Regular diet. 3. Routine labor care. 4. RPR and CBC upon admission. 5. Epidural available if patient so chooses. 6. Anticipate normal spontaneous vaginal delivery.
--- NOTE | 2020-02-01 18:01 | PCM.SN.2 ---
- Free Text/Narrative Note: Marita is a 29-year-old 6 para 3033 white female who was admitted for elective induction of labor on 02/01/2020 at 39-4/7 weeks gestational age with an ELENA of 02/04/2020. The risks and benefits of an elective induction were explained and patient desired to proceed with the induction. Patient was dilated to 3 cm with head well applied to the cervix. Decision was made to proceed with artificial rupture of membranes at 1440 with resultant clear amniotic fluid. She received labor analgesia via an epidural. She progressed rapidly from 3 cm to complete at approximately 1700 hours on 02/01/2020. At 1726, patient delivered a viable, rae, female infant name Mary Ann Hernandez. Baby weighed 3760 g (8 pounds 4.6 ounces). Apgars of 7 and 9. Length of 21.0 inches. Baby delivered in an direct occiput anterior position. 2nd degree laceration was present. Baby was placed on moms abdomen, dried and nose and mouth were cleared with bulb suction. Pitocin was started at 500 cc/hour to facilitate increase in uterine tone to decrease likelihood of bleeding. The umbilical cord was intact with 3 vessels present. Baby needed to be evaluated more closely in the warmer, so the cord was allowed to pulsate for 1 to 2 minutes. It was then clamped x2 and cut by akash Bill. Cord blood was obtained. Repair of perineal lacerations was then undertaken with interrupted and short running sutures of 3-0 Monocryl. Perineal laceration was repaired in a routine fashion. Labor epidural analgesia was used for perineal laceration repair anesthesia. Patient tolerated this very well. The placenta delivered in a Brenner presentation. It appeared intact and completed. It was discard per patient desire. Blood loss was 200 mL. Patient plans to breastfeed.
[2020-02-01] MEDS ORDERED: Benzocaine/Menthol 20%-0.5% Spray 56 GM Canister TOP PRN (19:04)
[2020-02-01] MEDS ORDERED: Docusate Sodium 100 MG Cap PO PRN (19:04)
[2020-02-01] MEDS ORDERED: Acetaminophen 325 MG Tab PO PRN (19:04)
[2020-02-01] MEDS ORDERED: Witch Hazel Medicated Pads 40/Jar TOP PRN (19:04)
[2020-02-01] MEDS: Ibuprofen 600 MG Tab PO PRN (19:52)
[2020-02-02] MEDS: Ibuprofen 600 MG Tab PO PRN ×3 (01:09→12:42)
--- NOTE | 2020-02-02 07:51 | PCM48HPAN ---
Post Anesthesia Note - EVALUATION WITHIN 48HRS OF ANESTHETIC Vital Signs in Normal Range: Yes Patient Participated in Evaluation: Yes Respiratory Function Stable: Yes Airway Patent: Yes Cardiovascular Function Stable: Yes Hydration Status Stable: Yes Pain Control Satisfactory: Yes Nausea and Vomiting Control Satisfactory: Yes Mental Status Recovered: Yes Vital Signs: Last Vital Signs Temp 36.6 C 02/02/20 02:06 Pulse 61 02/02/20 02:06 Resp 16 02/02/20 02:06 BP 104/62 02/02/20 02:06 Pulse Ox 98 02/02/20 02:06
[2020-02-02] MEDS ORDERED: Prenatal Multivitamin with Calcium/Folic Acid/Iron Tab PO SCH (09:00)
--- NOTE | 2020-02-02 09:00 | PCM.SN.2 ---
- Free Text/Narrative Note: note: Patient is doing well in the period. Minimal lochia, voiding well, ambulated without problems. She is having difficulty with nursing. Her milk production has not started yet, and she is using a nipple shield to facilitate latching. The [employer] operations consultant will be in today to help her. Patient is afebrile, vital signs are stable Abdomen is flat, soft, uterus is below the umbilicus and is firm and nontender. Legs are nontender. Assessment: recovery going well. Plan: Routine care. Patient be discharged home within the next 24-48 hours.
--- NOTE | 2020-02-02 10:42 | PCM.DCSUM1 ---
Discharge Summary - Hospital Course Free Text/Narrative:: Marita is a 29-year-old 6 para 3033 white female who was admitted for elective induction of labor on 02/01/2020 at 39-4/7 weeks gestational age with an ELENA of 02/04/2020. The risks and benefits of an elective induction were explained and patient desired to proceed with the induction. Patient was dilated to 3 cm with head well applied to the cervix. Decision was made to proceed with artificial rupture of membranes at 1440 with resultant clear amniotic fluid. She received labor analgesia via an epidural. She progressed rapidly from 3 cm to complete at approximately 1700 hours on 02/01/2020. At 1726, patient delivered a viable, rae, female infant name Mary Ann Hernandez. Baby weighed 3760 g (8 pounds 4.6 ounces). Apgars of 7 and 9. Length of 21.0 inches. Baby delivered in an direct occiput anterior position. 2nd degree laceration was present. Baby was placed on moms abdomen, dried and nose and mouth were cleared with bulb suction. Pitocin was started at 500 cc/hour to facilitate increase in uterine tone to decrease likelihood of bleeding. The umbilical cord was intact with 3 vessels present. Baby needed to be evaluated more closely in the warmer, so the cord was allowed to pulsate for 1 to 2 minutes. It was then clamped x2 and cut by akash Bill. Cord blood was obtained. Repair of perineal lacerations was then undertaken with interrupted and short running sutures of 3-0 Monocryl. Perineal laceration was repaired in a routine fashion. Labor epidural analgesia was used for perineal laceration repair anesthesia. Patient tolerated this very well. The placenta delivered in a Brenner presentation. It appeared intact and completed. It was discard per patient desire. Blood loss was 200 mL. Patient plans to breastfeed. patient is done well. She is desiring discharge after 24 hours since the time of delivery. She is ambulating well, epidural has worn off. She is voiding without problems and has minimal lochia. Discharge instructions are given. Diagnosis: Stroke: No - Discharge Data Discharge Date: 02/02/20 Discharge Disposition: Home, Self-Care 01 Condition: Good - Referral to Home Health Primary Care Physician: Bin Zamora MD - Patient Instructions Diet: Regular Diet as Tolerated (Nursing diet with increased calories and calcium as recommended) Activity: As Tolerated (No intercourse or tampons until bleeding resolves) Driving: May Drive Today Showering/Bathing: May Shower Showering/Bathing, Other: May take a bath Notify Provider of: Fever, Increased Pain, Swelling and Redness - Discharge Plan Home Medications: Home Meds Folic Acid 1 tab PO DAILY 04/29/18 [History] #103/Iron Fumarate/Fa [ ] 1 tab PO DAILY 04/29/18 [History] Calcium Carbonate [Calcium] 500 mg PO DAILY 04/08/19 [History] L.acidoph,Paracasei, B.lactis [Probiotic] 1 cap PO DAILY 04/08/19 [History] [place]-3/DHA/Epa/Fish Oil [Fish Oil 500 MG Softgel] 1,000 mg PO DAILY 04/08/19 [History] Docusate Sodium [Colace] 1 cap PO DAILY 07/26/19 [History] Acetaminophen [Tylenol] 650 mg PO Q4H PRN tablet 02/02/20 [Rx] Ibuprofen [Motrin] 600 mg PO Q4H PRN tablet 02/02/20 [Rx] Referrals: Bin Zamora MD [Primary Care Provider] - (Return to [facility]-nurse practitioner2 weeks.) - Discharge Summary/Plan Comment DC Time >30 min.: No Discharge Summary/Plan Comment: Discharge instructions: 1. Discharge home 2. Diet, activity and follow-up discussed with patient. Recommend nursing diet with increased calories and calcium. 3. Precautions given concern increased pain, bleeding, temperature, signs/symptoms of DVT/PE. 4. Medications per home medication was printed, discussed with and given to the patient. 5. Return to clinic-Dr. Zamora-[facility] in 2 weeks. Diagnosis: Term -delivered Condition: Good - Patient Data Vitals - Most Recent: Last Vital Signs Temp 36.4 C 02/02/20 09:02 Pulse 71 02/02/20 09:02 Resp 20 02/02/20 09:02 BP 117/67 02/02/20 09:02 Pulse Ox 99 02/02/20 09:02 Weight - Most Recent: 84.277 kg Lab Results - Last 24 hrs: Laboratory Results - last 24 hr 02/01/20 02/01/20 02/01/20 Range/Units 13:32 13:35 13:35 WBC 9.69 (3.98-10.04) K/mm3 RBC 3.72 L (3.98-5.22) M/mm3 Hgb 11.5 (11.2-15.7) gm/dl Hct 34.8 (34.1-44.9) % MCV 93.5 (79.4-94.8) fl MCH 30.9 (25.6-32.2) pg MCHC 33.0 (32.2-35.5) g/dl RDW Std Deviation 44.9 (36.4-46.3) fL Plt Count 176 L (182-369) K/mm3 MPV 9.9 (9.4-12.3) fl Neut % (Auto) 71.7 H (34.0-71.1) % Lymph % (Auto) 20.6 (19.3-51.7) % Eddy % (Auto) 5.8 (4.7-12.5) % Eos % (Auto) 0.8 (0.7-5.8) Baso % (Auto) 0.4 (0.1-1.2) % Neut # (Auto) 6.94 H (1.56-6.13) K/mm3 Lymph # (Auto) 2.00 (1.18-3.74) K/mm3 Eddy # (Auto) 0.56 H (0.24-0.36) K/mm3 Eos # (Auto) 0.08 (0.04-0.36) K/mm3 Baso # (Auto) 0.04 (0.01-0.08) K/mm3 RPR Non-reactive (NONREACTIVE) COVID-19 ([place]) Negative (NEGATIVE) Med Orders - Current: Current Medications Acetaminophen (Tylenol) 650 mg PO Q4H PRN PRN Reason: mild pain or fever Benzocaine/Menthol (Dermoplast Pain Relief [place]) 0 gm TOP ASDIRECTED PRN PRN Reason: Perineal Comfort Measure Last Admin: 02/01/20 19:49 Dose: 1 applic Documented by: Docusate Sodium (Colace) 100 mg PO BID PRN PRN Reason: Constipation Ibuprofen (Motrin) 600 mg PO Q4H PRN PRN Reason: Mild pain or fever Last Admin: 02/02/20 08:01 Dose: 600 mg Documented by: Prenat Multivit/Gallia/Iron/Folic Ac ( Plus Iron) 1 each PO DAILY KATTY Last Admin: 02/02/20 08:01 Dose: 1 each Documented by: Celine Estes ([facility] [[email or web address]]) 1 pad TOP ASDIRECTED PRN PRN Reason: Perineal Comfort Measure Last Admin: 02/01/20 19:49 Dose: 1 applic Documented by: Discontinued Medications Diphenhydramine HCl (Benadryl) 25 mg IVPUSH Q6H PRN PRN Reason: pruritis Ephedrine Sulfate (Ephedrine Sulfate) 5 mg IVPUSH ASDIRECTED PRN PRN Reason: Hypotension Last Admin: 02/01/20 15:55 Dose: 5 mg Documented by: Fentanyl (Sublimaze) 100 mcg EPIDUR Q3H PRN PRN Reason: Pain Last Admin: 02/01/20 14:59 Dose: 100 mcg Documented by: Fentanyl/Bupivacaine HCl (Fentanyl/Bupivacaine/Ns 2 Mcg-0.125% 100 Ml) 100 ml EPIDUR ASDIRECTED PRN PRN Reason: Pain Last Admin: 02/01/20 14:59 Dose: 100 ml Documented by: Oxytocin/Lactated Ringer's (Pitocin In Lr 10 Units/1,000 Ml) 10 unit in 1,000 mls @ 500 mls/hr IV .CONTINUOUS KATTY Last Admin: 02/01/20 17:30 Dose: 500 mls/hr Documented by: Lactated Ringer's (Ringers, Lactated) 1,000 mls @ 100 mls/hr IV ASDIRECTED KATTY Last Infusion: 02/01/20 16:17 Dose: 150 mls/hr Documented by: Nalbuphine HCl (Nubain) 10 mg IVPUSH Q2H PRN PRN Reason: Pain Sodium Chloride (Saline Flush) 10 ml FLUSH ASDIRECTED PRN PRN Reason: Keep Vein Open
[2020-02-02 16:39] VITALS: BP 105/60; PULSE 70
== END 2020-02-02 17:39 | disposition home or self-care (01) | DRG 560 ==
LOC: JD.OB 02-01 13:08 → OBSVTOIN 02-01 17:26 → JD.OB 02-01 17:27
PROVIDERS: ADMIT Obstetrics & Gynecology; ATTEND Obstetrics & Gynecology
PROC: 10E0XZZ Delivery of Products of Conception, External Approach (ICD-10-PCS; principal; 2020-02-01)
PROC: 10907ZC Drainage of Amniotic Fluid, Therapeutic from Products of Conception, Via Natural or Artificial Opening (ICD-10-PCS; 2020-02-01)
PROC: 0KQM0ZZ Repair Perineum Muscle, Open Approach (ICD-10-PCS; 2020-02-01)
PROC: 3E0R3BZ Introduction of Anesthetic Agent into Spinal Canal, Percutaneous Approach (ICD-10-PCS; 2020-02-01)
PROC: 00HU33Z Insertion of Infusion Device into Spinal Canal, Percutaneous Approach (ICD-10-PCS; 2020-02-01)
DX: O99.62 Diseases of the digestive system complicating childbirth (principal); K21.9 Gastro-esophageal reflux disease without esophagitis; O70.1 Second degree perineal laceration during delivery; Z37.0 Single live birth; Z3A.39 39 weeks gestation of pregnancy; Z87.891 Personal history of nicotine dependence; Z90.49 Acquired absence of other specified parts of digestive tract; Z11.59 Encounter for screening for other viral diseases
CPT/HCPCS: 36415; 51702; 59025; 59409; 85025; 86592; A9270-GY; J2590; J3010; J7120; U0002

== ENCOUNTER 2020-03-22 21:57 | Emergency (ER) | payer BC ==
[2020-03-22 22:23] VITALS: BP 121/78; PULSE 67
[2020-03-22] MEDS ORDERED: Ondansetron 4 MG/2 ML SDV IVPUSH ONE (22:54)
[2020-03-22] MEDS ORDERED: HYDROmorphone 0.5 MG/0.5 ML Syringe IVPUSH ONE (22:54)
--- NOTE | 2020-03-22 22:57 | EDM.PDOC ---
ED HPI GENERAL MEDICAL PROBLEM - General Chief Complaint: Abdominal Pain Stated Complaint: ABDOMINAL PAIN Time Seen by Provider: 03/22/20 22:31 Source of Information: Reports: Patient History Limitations: Reports: No Limitations - History of Present Illness INITIAL COMMENTS - FREE TEXT/NARRATIVE: This is a 29-year-old female. Over the weekend she started having some left upper quadrant abdominal pain on and off and very light and apparently today it seemed to get worse sharp and stabbing. She has a history of pancreatitis on multiple occasions the last one was several months ago when she was . She does not drink and she does not know what her triglycerides are. She has been referred to the [facility] I think for evaluation of this pancreatitis of unknown etiology. She denies any fever or chills she has had good bowel movements she has had some nausea with a sharp stabbing pain but no vomiting or diarrhea. She comes to the clinic for evaluation for the sharp stabbing pain. Treatments [employer]: Reports: Acetaminophen Left Lower Abdominal Pain Score (Numeric/FACES): 7 - Related Data Allergies Allergy/AdvReac Type Severity Reaction Status Date / Time Latex, Natural Rubber Allergy Rash Verified 03/22/20 22:22 metronidazole [From Flagyl] Allergy Rash Verified 03/22/20 22:22 sulfamethoxazole Allergy Rash Verified 03/22/20 22:22 [From Bactrim] trimethoprim [From Bactrim] Allergy Rash Verified 03/22/20 22:22 amoxicillin trihydrate AdvReac Vomiting Verified 03/22/20 22:22 [From Augmentin] potassium clavulanate AdvReac Vomiting Verified 03/22/20 22:22 [From Augmentin] Home Meds: Home Meds #103/Iron Fumarate/Fa [ ] 1 tab PO DAILY 04/29/18 [History] Calcium Carbonate [Calcium] 500 mg PO DAILY 04/08/19 [History] L.acidoph,Paracasei, B.lactis [Probiotic] 1 cap PO DAILY 04/08/19 [History] [place]-3/DHA/Epa/Fish Oil [Fish Oil 500 MG Softgel] 1,000 mg PO DAILY 04/08/19 [History] Acetaminophen [Tylenol] 650 mg PO Q4H PRN tablet 02/02/20 [Rx] Pantoprazole [ProTONIX] 40 mg PO DAILY 03/12/20 [History] Acetaminophen/oxyCODONE [Percocet 325-5 MG] 1 tab PO Q6H PRN #20 tab 03/23/20 [Rx] Ondansetron [Zofran] 4 mg PO Q6H PRN #15 tab 03/23/20 [Rx] Past Medical History HEENT History: Reports: Impaired Vision Cardiovascular History: Reports: None Respiratory History: Reports: Other (See Below) Other Respiratory History: former smoker x 9 years. had 5-6 cig aday. Quit 2019. Gastrointestinal History: Reports: GERD, Pancreatitis Other Gastrointestinal History: History of C-dff Genitourinary History: Reports: None TEMPLE MARKER History: Reports: Spontaneous Other TEMPLE MARKER History: D&C Musculoskeletal History: Reports: Other (See Below) Neurological History: Reports: None Psychiatric History: Reports: Anxiety, Depression Endocrine/Metabolic History: Reports: None - Infectious Disease History Infectious Disease History: Reports: C-Difficile - Past Surgical History Head Surgeries/Procedures: Reports: Other (See Below) HEENT Surgical History: Reports: Naso-Sinus Surgery, Oral Surgery GI Surgical History: Reports: Abdominal paracentesis, Cholecystectomy, ERCP Female Surgical History: Reports: D&C Social & Family History - Family History Family Medical History: Noncontributory HEENT: Reports: None - Tobacco Use Smoking Status *Q: Current Every Day Smoker Years of Tobacco use: 10 Packs/Tins Daily: 0.5 - Caffeine Use Caffeine Use: Reports: Coffee - Recreational Drug Use Recreational Drug Use: No - Living Situation & Occupation Living situation: Reports: , with Spouse, with Family (2 kids) 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 Denies: Constipation, Diarrhea, Vomiting : Reports: No Symptoms Musculoskeletal: Reports: No Symptoms Skin: Reports: No Symptoms Neurological: Reports: No Symptoms Psychiatric: Reports: No Symptoms Hematologic/Lymphatic: Reports: No Symptoms ED EXAM, GI/ABD - Physical Exam Exam: See Below Exam Limited By: No Limitations General Appearance: Alert, WD/WN, No Apparent Distress Eyes: Bilateral: Normal Appearance Ears: Normal External Exam Throat/Mouth: Normal Voice, No Airway Compromise Head: Normocephalic Neck: Supple Respiratory/Chest: No Respiratory Distress, Lungs Clear, Normal Breath Sounds Cardiovascular: Regular Rate, Rhythm, No Murmur GI/Abdominal Exam: Soft, Non-Tender, Other (Minimal tenderness in the left upper quadrant area. No tenderness in the lower abdomen or the right upper quadrant and she is already had a cholecystectomy.) Back Exam: Full Range of Motion Extremities: Normal Inspection, Normal Range of Motion Neurological: Alert, Oriented Psychiatric: Normal Affect, Normal Mood Skin Exam: Warm, Dry Course - Vital Signs Last Recorded V/S: Last Vital Signs Temp 97.0 F 03/22/20 22:19 Pulse 67 03/22/20 22:19 Resp 18 03/22/20 22:19 BP 121/78 03/22/20 22:19 Pulse Ox 99 03/22/20 22:19 - Orders/Labs/Meds Orders: Active Orders 24 hr Category Date Time Status Sodium Chloride 0.9% [Normal Saline] 1,000 ml Med 03/22/20 23:00 Active IV ASDIRECTED Medication Orders Sodium Chloride (Normal Saline) 1,000 mls @ 1,000 mls/hr IV ASDIRECTED KATTY Last Admin: 03/22/20 23:18 Dose: 1,000 mls/hr Documented by: FOUZIA Labs: Laboratory Tests 03/22/20 03/22/20 Range/Units 23:17 23:17 WBC 7.21 (3.98-10.04) K/mm3 RBC 4.21 (3.98-5.22) M/mm3 Hgb 12.6 (11.2-15.7) gm/dl Hct 38.4 (34.1-44.9) % MCV 91.2 (79.4-94.8) fl MCH 29.9 (25.6-32.2) pg MCHC 32.8 (32.2-35.5) g/dl RDW Std Deviation 41.3 (36.4-46.3) fL Plt Count 246 (182-369) K/mm3 MPV 9.0 L (9.4-12.3) fl Neut % (Auto) 38.8 (34.0-71.1) % Lymph % (Auto) 52.6 H (19.3-51.7) % [place] % (Auto) 6.2 (4.7-12.5) % Eos % (Auto) 1.7 (0.7-5.8) Baso % (Auto) 0.4 (0.1-1.2) % Neut # (Auto) 2.80 (1.56-6.13) K/mm3 Lymph # (Auto) 3.79 H (1.18-3.74) K/mm3 [place] # (Auto) 0.45 H (0.24-0.36) K/mm3 Eos # (Auto) 0.12 (0.04-0.36) K/mm3 Baso # (Auto) 0.03 (0.01-0.08) K/mm3 Sodium 139 (136-145) mEq/L Potassium 3.5 (3.5-5.1) mEq/L Chloride 104 (98-107) mEq/L Carbon Dioxide 27 (21-32) mEq/L Anion Gap 11.5 (5-15) BUN 13 (7-18) mg/dL Creatinine 0.8 (0.55-1.02) mg/dL Est Cr Clr Drug Dosing 99.08 mL/min Estimated GFR (MDRD) > 60 (>60) mL/min BUN/Creatinine Ratio 16.3 (14-18) Glucose 97 (74-106) mg/dL Calcium 8.2 L (8.5-10.1) mg/dL Total Bilirubin 0.3 (0.2-1.0) mg/dL AST 21 (15-37) U/L ALT 55 (14-59) U/L Alkaline Phosphatase 95 (46-116) U/L C-Reactive Protein 0.2 (<1.0) mg/dL Total Protein 7.1 (6.4-8.2) g/dl Albumin 3.8 (3.4-5.0) g/dl Globulin 3.3 gm/dL Albumin/Globulin Ratio 1.2 (1-2) Amylase 183 H (25-115) U/L Lipase 1221 H (73-393) U/L Meds: Medications Generic Name Dose Route Start Last Admin Trade Name Freq PRN Reason Stop Dose Admin Sodium Chloride 1,000 mls @ 1,000 mls/hr 03/22/20 23:00 03/22/20 23:18 Normal Saline IV 1,000 mls/hr ASDIRECTED KATTY Administration Discontinued Medications Generic Name Dose Route Start Last Admin Trade Name Jason PRN Reason Stop Dose Admin Hydromorphone HCl 0.5 mg 03/22/20 22:54 03/22/20 23:19 Dilaudid IVPUSH 03/22/20 22:55 0.5 mg ONETIME ONE Administration Ondansetron HCl 4 mg 03/22/20 22:54 03/22/20 23:19 Zofran IVPUSH 03/22/20 22:55 4 mg ONETIME ONE Administration - Re-Assessments/Exams Free Text/Narrative Re-Assessment/Exam: 03/23/20 01:11 Spoke to the patient regarding her test results. Her white count is normal. Her C-reactive protein is normal. Her amylase is 183 and her lipase is 1221. This is just a very mild elevation. Willing to try to treat her at home with medicine for nausea and pain and she is to stay on clear liquids for the next 48 to 72 hours. I did indicate that if the pain continues to get worse and worse despite being on liquids she might need to return to the ER for reevaluation. Departure - Departure Time of Disposition: 01:13 Disposition: Home, Self-Care 01 Condition: Fair Clinical Impression: Acute pancreatitis Qualifiers: Pancreatitis type: unspecified pancreatitis type Acute pancreatitis complication: no infection or necrosis Qualified Code(s): K85.90 - Acute pancreatitis without necrosis or infection, unspecified - Discharge Information *PRESCRIPTION DRUG MONITORING PROGRAM REVIEWED*: Not Applicable *COPY OF PRESCRIPTION DRUG MONITORING REPORT IN PATIENT LUCIEN: Not Applicable Prescriptions: Acetaminophen/oxyCODONE [Percocet 325-5 MG] 1 tab PO Q6H PRN #20 tab PRN Reason: Pain Ondansetron [Zofran] 4 mg PO Q6H PRN #15 tab PRN Reason: Nausea Instructions: Acute Pancreatitis, [id number] Referrals: PCP,None [Primary Care Provider] - Forms: ED Department Discharge Additional Instructions: Rest and sleep is much as possible, drink lots of fluids but stay on a clear liquid diet for the next 3 to 5 days, take the medicine for nausea and pain as needed, if your symptoms continue to worsen despite the liquids and the medicines you might need to return to the ER, follow-up with your doctor later this week for recheck. Sepsis Event Note (ED) - Evaluation Sepsis Screening Result: No Definite Risk - Focused Exam Vital Signs: Vital Signs Temp Pulse Resp BP Pulse Ox 03/22/20 22:19 97.0 F 67 18 121/78 99 - My Orders Last 24 Hours: My Active Orders 03/22/20 23:00 Sodium Chloride 0.9% [Normal Saline] 1,000 ml IV ASDIRECTED - Assessment/Plan Last 24 Hours: My Active Orders 03/22/20 23:00 Sodium Chloride 0.9% [Normal Saline] 1,000 ml IV ASDIRECTED
[2020-03-22] MEDS ORDERED: Sodium Chloride 0.9% 1,000 ML IV SCH (23:00)
== END 2020-03-23 01:28 | disposition home or self-care (01) ==
LOC: JD.ED 21:57
DX: K85.90 Acute pancreatitis without necrosis or infection, unspecified (principal); K21.9 Gastro-esophageal reflux disease without esophagitis; F17.210 Nicotine dependence, cigarettes, uncomplicated; Z91.040 Latex allergy status; Z88.2 Allergy status to sulfonamides; Z88.1 Allergy status to other antibiotic agents; Z90.49 Acquired absence of other specified parts of digestive tract; Z79.899 Other long term (current) drug therapy
CPT/HCPCS: 36415; 80053; 82150; 83690; 85025; 86140; 96361; 96374; 96375; 99284; J1170; J2405; J7030

== ENCOUNTER 2020-07-08 20:38 | Emergency (ER) | payer BC, OTHER ==
[2020-07-08 20:48] VITALS: BP 120/74; PULSE 72
[2020-07-08] MEDS ORDERED: Ondansetron 4 MG/2 ML SDV IVPUSH ONE (21:11)
[2020-07-08] MEDS ORDERED: Sodium Chloride 0.9% 10 ML Syringe FLUSH PRN (21:11)
[2020-07-08] MEDS ORDERED: HYDROmorphone 1 MG/ML Syringe IVPUSH ONE (21:11)
[2020-07-08] MEDS ORDERED: Sodium Chloride 0.9% 1,000 ML IV SCH (21:15)
--- NOTE | 2020-07-08 22:29 | EDM.PDOC ---
ED HPI GENERAL MEDICAL PROBLEM - General Chief Complaint: Abdominal Pain Stated Complaint: LEFT SIDE PAIN Time Seen by Provider: 07/08/20 21:04 Source of Information: Reports: Patient, RN Notes Reviewed - History of Present Illness INITIAL COMMENTS - FREE TEXT/NARRATIVE: 29 yr old female with upper abd pain that started about 3 days ago, worsening yesterday and today. Hx of chronic pancreatitis, had been doing quite well up until 3 days ago. Discomfort is upper mid abd, similar to previous flare ups. Some nausea, no vomiting or diarrhea. Left Upper Abdomen Pain Score (Numeric/FACES): 7 - Related Data Allergies Allergy/AdvReac Type Severity Reaction Status Date / Time Latex, Natural Rubber Allergy Rash Verified 07/08/20 20:49 metronidazole [From Flagyl] Allergy Rash Verified 07/08/20 20:49 sulfamethoxazole Allergy Rash Verified 07/08/20 20:49 [From Bactrim] trimethoprim [From Bactrim] Allergy Rash Verified 07/08/20 20:49 amoxicillin trihydrate AdvReac Vomiting Verified 07/08/20 20:49 [From Augmentin] potassium clavulanate AdvReac Vomiting Verified 07/08/20 20:49 [From Augmentin] Home Meds: Home Meds #103/Iron Fumarate/Fa [ ] 1 tab PO DAILY 04/29/18 [History] Calcium Carbonate [Calcium] 500 mg PO DAILY 04/08/19 [History] L.acidoph,Paracasei, B.lactis [Probiotic] 1 cap PO DAILY 04/08/19 [History] [place]-3/DHA/Epa/Fish Oil [Fish Oil 500 MG Softgel] 1,000 mg PO DAILY 04/08/19 [History] Acetaminophen [Tylenol] 650 mg PO Q4H PRN tablet 02/02/20 [Rx] Pantoprazole [ProTONIX] 40 mg PO DAILY 03/12/20 [History] Ondansetron [Zofran] 4 mg PO Q6H PRN #15 tab 03/23/20 [Rx] Acetaminophen/HYDROcodone [[place] 325-5 MG] 1 tab PO Q6H PRN #10 tablet 07/08/20 [Rx] buPROPion [Wellbutrin] 75 mg PO DAILY 07/08/20 [History] Past Medical History HEENT History: Reports: Impaired Vision Cardiovascular History: Reports: None Respiratory History: Reports: Other (See Below) Other Respiratory History: former smoker x 9 years. had 5-6 cig aday. Quit 2019. Gastrointestinal History: Reports: GERD, Pancreatitis Other Gastrointestinal History: History of C-dff Genitourinary History: Reports: None SURGICAL ASST History: Reports: Spontaneous Other SURGICAL ASST History: D&C Musculoskeletal History: Reports: Other (See Below) Neurological History: Reports: None Psychiatric History: Reports: Anxiety, Depression Endocrine/Metabolic History: Reports: None - Infectious Disease History Infectious Disease History: Reports: C-Difficile - Past Surgical History Head Surgeries/Procedures: Reports: Other (See Below) HEENT Surgical History: Reports: Naso-Sinus Surgery, Oral Surgery Other HEENT Surgeries/Procedures: wisdom teeth removal Respiratory Surgical History: Reports: None GI Surgical History: Reports: Abdominal paracentesis, Cholecystectomy, ERCP Other GI Surgeries/Procedures: chronic pancreatic problems, stents in and stent out several times. Female Surgical History: Reports: D&C Other Musculoskeletal Surgeries/Procedures:: hammertoe correction rt foot 2nd toe. 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 Denies: Diarrhea, Hematochezia, Melena, Vomiting Musculoskeletal: Reports: Back Pain (mild) Skin: Reports: No Symptoms Neurological: Reports: No Symptoms ED EXAM, GI/ABD - Physical Exam Exam: See Below General Appearance: Alert, Mild Distress Head: Sinus Tenderness Neck: Supple Respiratory/Chest: No Respiratory Distress, Lungs Clear, Normal Breath Sounds Cardiovascular: Regular Rate, Rhythm GI/Abdominal Exam: Tender (mild, upper mid abd, remainder of abd is soft and nontender). No: Guarding, Rebound Back Exam: Normal Inspection Extremities: Normal Inspection Neurological: Alert, Oriented, No Motor/Sensory Deficits Skin Exam: Warm, Dry, Normal Color Course - Vital Signs Last Recorded V/S: Last Vital Signs Temp 97 F 07/08/20 20:46 Pulse 72 07/08/20 20:46 Resp 16 07/08/20 20:46 BP 120/74 07/08/20 20:46 Pulse Ox 99 07/08/20 20:46 - Orders/Labs/Meds Orders: Active Orders 24 hr Category Date Time Status Peripheral IV Care [RC] . DIRECTED Care 07/08/20 21:12 Active Sodium Chloride 0.9% [Normal Saline] 1,000 ml Med 07/08/20 21:15 Active IV ONETIME Sodium Chloride 0.9% [Saline Flush] Med 07/08/20 21:11 Active 10 ml FLUSH ASDIRECTED PRN Peripheral IV Insertion Adult [OM.PC] Stat Oth 07/08/20 21:11 Ordered Medication Orders Sodium Chloride (Normal Saline) 1,000 mls @ 999 mls/hr IV ONETIME [facility] Last Admin: 07/08/20 21:25 Dose: 999 mls/hr Documented by: REYNOLD Sodium Chloride (Saline Flush) 10 ml FLUSH ASDIRECTED PRN PRN Reason: Keep Vein Open Last Admin: 07/08/20 21:26 Dose: 10 ml Documented by: REYNOLD Labs: Laboratory Tests 07/08/20 07/08/20 Range/Units 21:23 21:23 WBC 6.11 (3.98-10.04) K/mm3 RBC 4.19 (3.98-5.22) M/mm3 Hgb 12.5 (11.2-15.7) gm/dl Hct 37.8 (34.1-44.9) % MCV 90.2 (79.4-94.8) fl MCH 29.8 (25.6-32.2) pg MCHC 33.1 (32.2-35.5) g/dl RDW Std Deviation 40.6 (36.4-46.3) fL Plt Count 260 (182-369) K/mm3 MPV 9.3 L (9.4-12.3) fl Neut % (Auto) 37.8 (34.0-71.1) % Lymph % (Auto) 53.0 H (19.3-51.7) % [place] % (Auto) 5.6 (4.7-12.5) % Eos % (Auto) 2.6 (0.7-5.8) Baso % (Auto) 1.0 (0.1-1.2) % Neut # (Auto) 2.31 (1.56-6.13) K/mm3 Lymph # (Auto) 3.24 (1.18-3.74) K/mm3 [place] # (Auto) 0.34 (0.24-0.36) K/mm3 Eos # (Auto) 0.16 (0.04-0.36) K/mm3 Baso # (Auto) 0.06 (0.01-0.08) K/mm3 Sodium 141 (136-145) mEq/L Potassium 3.8 (3.5-5.1) mEq/L Chloride 106 (98-107) mEq/L Carbon Dioxide 25 (21-32) mEq/L Anion Gap 13.8 (5-15) BUN 11 (7-18) mg/dL Creatinine 0.8 (0.55-1.02) mg/dL Est Cr Clr Drug Dosing 99.08 mL/min Estimated GFR (MDRD) > 60 (>60) mL/min BUN/Creatinine Ratio 13.8 L (14-18) Glucose 119 H (74-106) mg/dL Calcium 8.4 L (8.5-10.1) mg/dL Total Bilirubin 0.2 (0.2-1.0) mg/dL AST TNP ALT TNP Alkaline Phosphatase 102 (46-116) U/L Total Protein 7.1 (6.4-8.2) g/dl Albumin 4.0 (3.4-5.0) g/dl Globulin 3.1 gm/dL Albumin/Globulin Ratio 1.3 (1-2) Amylase 115 (25-115) U/L Lipase 551 H (73-393) U/L Meds: Medications Generic Name Dose Route Start Last Admin Trade Name Freq PRN Reason Stop Dose Admin Sodium Chloride 1,000 mls @ 999 mls/hr 07/08/20 21:15 07/08/20 21:25 Normal Saline IV 999 mls/hr ONETIME KATTY Administration Sodium Chloride 10 ml 07/08/20 21:11 07/08/20 21:26 Saline Flush FLUSH 10 ml ASDIRECTED PRN Administration Keep Vein Open Discontinued Medications Generic Name Dose Route Start Last Admin Trade Name Shinq PRN Reason Stop Dose Admin Hydromorphone HCl 1 mg 07/08/20 21:11 07/08/20 21:25 Dilaudid IVPUSH 07/08/20 21:12 1 mg ONETIME ONE Administration Ondansetron HCl 4 mg 07/08/20 21:11 07/08/20 21:25 Zofran IVPUSH 07/08/20 21:12 4 mg ONETIME ONE Administration - Re-Assessments/Exams Free Text/Narrative Re-Assessment/Exam: 07/08/20 22:44 Feeling much better after IV meds and fluids. Labs as reported. Lipase mildly elevated. Departure - Departure Time of Disposition: 22:26 Disposition: Home, Self-Care 01 Condition: Fair Clinical Impression: Pancreatitis Qualifiers: Chronicity: acute Pancreatitis type: unspecified pancreatitis type Acute pancreatitis complication: unspecified Qualified Code(s): K85.90 - Acute pancreatitis without necrosis or infection, unspecified - Discharge Information Prescriptions: Acetaminophen/HYDROcodone [[place] 325-5 MG] 1 tab PO Q6H PRN #10 tablet PRN Reason: Pain Referrals: Gloria Fernandez PA-C [Primary Care Provider] - Forms: ED Department Discharge Additional Instructions: Clear liquids until tomorrow afternoon, than very careful bland diet as tolerated. Zofran if needed for further nausea or vomiting. Tylenol for mild to moderate discomfort or hydrocodone if needed for severe pain. Follow up clinic as needed. Return to ED as needed if symptoms worsening in any way. Sepsis Event Note (ED) - Evaluation Sepsis Screening Result: No Definite Risk - Focused Exam Vital Signs: Vital Signs Temp Pulse Resp BP Pulse Ox 07/08/20 20:46 97 F 72 16 120/74 99 - My Orders Last 24 Hours: My Active Orders 07/08/20 21:11 Sodium Chloride 0.9% [Saline Flush] 10 ml FLUSH ASDIRECTED PRN Peripheral IV Insertion Adult [OM.PC] Stat 07/08/20 21:12 Peripheral IV Care [RC] . DIRECTED 07/08/20 21:15 Sodium Chloride 0.9% [Normal Saline] 1,000 ml IV ONETIME - Assessment/Plan Last 24 Hours: My Active Orders 07/08/20 21:11 Sodium Chloride 0.9% [Saline Flush] 10 ml FLUSH ASDIRECTED PRN Peripheral IV Insertion Adult [OM.PC] Stat 07/08/20 21:12 Peripheral IV Care [RC] . DIRECTED 07/08/20 21:15 Sodium Chloride 0.9% [Normal Saline] 1,000 ml IV ONETIME
== END 2020-07-08 22:46 | disposition home or self-care (01) ==
LOC: JD.ED 20:38
DX: K85.90 Acute pancreatitis without necrosis or infection, unspecified (principal); K21.9 Gastro-esophageal reflux disease without esophagitis; Z72.0 Tobacco use; Z79.899 Other long term (current) drug therapy; Z91.040 Latex allergy status; Z88.1 Allergy status to other antibiotic agents; Z88.2 Allergy status to sulfonamides
CPT/HCPCS: 36415; 80053; 82150; 83690; 85025; 96374; 96375; 99284; J1170; J2405; J7030

== ENCOUNTER 2020-09-05 18:44 | Emergency (ER) | payer BC, SELFPAY ==
[2020-09-05] MEDS ORDERED: HYDROmorphone 1 MG/ML Syringe IVPUSH STA (19:49)
[2020-09-05] MEDS ORDERED: Sodium Chloride 0.9% 1,000 ML IV ONE (19:50)
[2020-09-05] MEDS ORDERED: Metoclopramide 10 MG/2 ML SDV IVPUSH STA (19:50)
--- NOTE | 2020-09-05 19:58 | EDM.PDOC ---
ED HPI GENERAL MEDICAL PROBLEM - General Chief Complaint: Abdominal Pain Stated Complaint: CHRONIC PANCREATITIS Time Seen by Provider: 09/05/20 18:59 Source of Information: Reports: Patient, Family () History Limitations: Reports: No Limitations - History of Present Illness INITIAL COMMENTS - FREE TEXT/NARRATIVE: Mrs. Cobb is a pleasant 29-year-old woman who now presents to the ED stating that she has had left upper quadrant abdominal pain and nausea, without vomiting, since this past 09/02/2020. She describes the pain as sharp and stabbing in character. She states that it comes and goes, typically lasting about 2 hours, then recurring about 3-4 times per day, although she states that today it has been constant. She has not identified any modifiers. She has been taking Zofran, tramadol, and Tylenol, and states that the Zofran does not appear to be doing much to help with her nausea. No associated fever, vomiting, constipation, diarrhea, or urinary symptoms. The patient states that she has had countless similar symptoms ever since she was 17 years old, due to chronic pancreatitis, most recently in June or July of this year. She states that she has been evaluated at [facility] in the past, and is currently under the care of a Powertrain Control Systems Engineer at the [facility]. She states that she has undergone 4 biliary stents in the past, most recently about 10 years ago. Review of prior medical records finds that the patient's lipase has been elevated above 1179 (3 times the upper limit of normal) on 3 separate occasions since 07/10/2014. A CT of her abdomen and pelvis on 04/16/2015 was negative, as were MRIs of her abdomen and pelvis on 02/27/2019, and 03/13/2020. I do not have, however, access to her medical records from [facility] or the [facility], therefore they may have some evidence for chronic pancreatitis that I do not have. Here in the ED tonight, the patient is found to be hemodynamically stable, afebrile, saturating 100% on room air. She appears to be in no acute distress, watching TV. Prior to Wednesday, the patient denies having a recent fever, chills, sore throat, ear pain, nasal or sinus congestion, cough, dyspnea, chest pain, palpitations, nausea, vomiting, constipation, diarrhea, abdominal pain, urinary symptoms, recent weight gain or weight loss, recent bloody bowel movements or black bowel movements, recent joint aches, headaches, or rashes. Her LMP started on 08/30/2020. The patient does not have a PCP. Her ASSISTANT COOK is Dr. Zamora, although she sometimes sees Kajal Salazar NP. Her Powertrain Control Systems Engineer at the [facility] is Dr. Kristian Barone. She states that she already received an influenza vaccine this season. Left Upper Abdomen Pain Score (Numeric/FACES): 7 - Related Data Allergies Allergy/AdvReac Type Severity Reaction Status Date / Time Latex, Natural Rubber Allergy Rash Verified 09/05/20 18:55 metronidazole [From Flagyl] Allergy Rash Verified 09/05/20 18:55 sulfamethoxazole Allergy Rash Verified 09/05/20 18:55 [From Bactrim] trimethoprim [From Bactrim] Allergy Rash Verified 09/05/20 18:55 amoxicillin trihydrate AdvReac Vomiting Verified 09/05/20 18:55 [From Augmentin] potassium clavulanate AdvReac Vomiting Verified 09/05/20 18:55 [From Augmentin] Home Meds: Home Meds #103/Iron Fumarate/Fa [ ] 1 tab PO DAILY 04/29/18 [History] Calcium Carbonate [Calcium] 500 mg PO DAILY 04/08/19 [History] L.acidoph,Paracasei, B.lactis [Probiotic] 1 cap PO DAILY 04/08/19 [History] [place]-3/DHA/Epa/Fish Oil [Fish Oil 500 MG Softgel] 1,000 mg PO DAILY 04/08/19 [History] Acetaminophen [Tylenol] 650 mg PO Q4H PRN tablet 02/02/20 [Rx] Pantoprazole [ProTONIX] 40 mg PO DAILY 03/12/20 [History] Ondansetron [Zofran] 4 mg PO Q6H PRN #15 tab 03/23/20 [Rx] buPROPion [Wellbutrin] 300 mg PO DAILY 07/08/20 [History] Ascorbate Calcium [Vitamin C] 500 mg PO DAILY 09/05/20 [History] LORazepam [Ativan] 1 mg PO BID 09/05/20 [History] Sertraline HCl 75 mg PO DAILY 09/05/20 [History] traMADol [Ultram] 1 tab PO Q6H PRN #10 tab 09/05/20 [Rx] traMADol [Ultram] 50 mg PO Q6H 09/05/20 [History] Past Medical History HEENT History: Reports: Impaired Vision Gastrointestinal History: Reports: GERD, Pancreatitis (see HPI) ASSISTANT COOK History: Reports: Spontaneous (x 3) : 6 Para: 3 Psychiatric History: Reports: Anxiety, Depression - Infectious Disease History Infectious Disease History: Reports: C-Difficile - Past Surgical History HEENT Surgical History: Reports: Naso-Sinus Surgery, Oral Surgery (dental extraction) GI Surgical History: Reports: Abdominal paracentesis, Cholecystectomy (2011), ERCP (x 5, each with placement of a biliary stent) Female Surgical History: Reports: D&C (x 2) Other Musculoskeletal Surgeries/Procedures:: hammertoe correction rt foot 2nd toe. 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 ED EXAM, GI/ABD - Physical Exam Exam: See Below Exam Limited By: No Limitations General Appearance: Alert, WD/WN, No Apparent Distress Eyes: Bilateral: Normal Appearance, EOMI Ears: Normal External Exam, Hearing Grossly Normal Nose: Normal Inspection Throat/Mouth: Normal Inspection, Normal Lips, Normal Voice, No Airway Compromise Head: Atraumatic, Normocephalic Neck: Normal Inspection, Full Range of Motion Respiratory/Chest: No Respiratory Distress, Lungs Clear, Normal Breath Sounds, No Accessory Muscle Use Cardiovascular: Normal Peripheral Pulses, Regular Rate, Rhythm, No Edema, No Gallop, No JVD, No Murmur, No Rub GI/Abdominal Exam: Normal Bowel Sounds, Soft, No Organomegaly, No Distention, No Abnormal Bruit, No Mass, Tender (minimal, to the epigastrium and left upper quadrant only, with no tenderness elsewhere) Back Exam: Normal Inspection, Full Range of Motion. No: CVA Tenderness (L), CVA Tenderness (R) Extremities: Normal Inspection, Normal Range of Motion, No Pedal Edema, Normal Capillary Refill Neurological: Alert, Oriented, Normal Cognition, No Motor/Sensory Deficits Psychiatric: Normal Affect Skin Exam: Warm, Dry, Intact, Normal Color, No Rash Course - Vital Signs Last Recorded V/S: Last Vital Signs Temp 36.2 C 09/05/20 18:52 Pulse 67 09/05/20 18:52 Resp 17 09/05/20 18:52 BP 126/79 09/05/20 18:52 Pulse Ox 100 09/05/20 18:52 - Orders/Labs/Meds Labs: Laboratory Tests 09/05/20 09/05/20 09/05/20 Range/Units 20:01 20:01 20:48 WBC 5.97 (3.98-10.04) K/mm3 RBC 4.54 (3.98-5.22) M/mm3 Hgb 13.3 (11.2-15.7) gm/dl Hct 40.3 (34.1-44.9) % MCV 88.8 (79.4-94.8) fl MCH 29.3 (25.6-32.2) pg MCHC 33.0 (32.2-35.5) g/dl RDW Std Deviation 40.5 (36.4-46.3) fL Plt Count 269 (182-369) K/mm3 MPV 9.0 L (9.4-12.3) fl Neutrophils % (Manual) 48 (40-60) % Band Neutrophils % 1 (0-10) % Lymphocytes % (Manual) 47 H (20-40) % Atypical Lymphs % 0 % Monocytes % (Manual) 3 (2-10) % Eosinophils % (Manual) 1 (0.7-5.8) % Basophils % (Manual) 0 L (0.1-1.2) Platelet Estimate Adequate RBC Morph Comment Normal Sodium 143 (136-145) mEq/L Potassium 3.9 (3.5-5.1) mEq/L Chloride 105 (98-107) mEq/L Carbon Dioxide 24 (21-32) mEq/L Anion Gap 17.9 H (5-15) BUN 11 (7-18) mg/dL Creatinine 0.8 (0.55-1.02) mg/dL Est Cr Clr Drug Dosing 99.08 mL/min Estimated GFR (MDRD) > 60 (>60) mL/min BUN/Creatinine Ratio 13.8 L (14-18) Glucose 86 (74-106) mg/dL Calcium 9.2 (8.5-10.1) mg/dL Total Bilirubin 0.4 (0.2-1.0) mg/dL AST 17 (15-37) U/L ALT 30 (14-59) U/L Alkaline Phosphatase 83 (46-116) U/L Total Protein 7.9 (6.4-8.2) g/dl Albumin 4.4 (3.4-5.0) g/dl Globulin 3.5 gm/dL Albumin/Globulin Ratio 1.3 (1-2) Lipase 460 H (73-393) U/L Urine Color Yellow (Yellow) Urine Appearance Clear (Clear) Urine pH 6.5 (5.0-8.0) Ur Specific Crook 1.015 (1.005-1.030) Urine Protein Negative (Negative) Urine Glucose (UA) Negative (Negative) Urine Ketones Trace H (Negative) Urine Occult Blood Negative (Negative) Urine Nitrite Negative (Negative) Urine Bilirubin Negative (Negative) Urine Urobilinogen 0.2 (0.2-1.0) Ur Leukocyte Esterase Negative (Negative) Urine RBC 0-5 (0-5) /hpf Urine WBC 0-5 (0-5) /hpf Ur Squamous Epith Cells 0-5 (0-5) /hpf Urine Bacteria Few (FEW) /hpf Urine Mucus Not seen (FEW) /hpf Urine HCG, Qual (NEGATIVE) 09/05/20 Range/Units 20:48 WBC (3.98-10.04) K/mm3 RBC (3.98-5.22) M/mm3 Hgb (11.2-15.7) gm/dl Hct (34.1-44.9) % MCV (79.4-94.8) fl MCH (25.6-32.2) pg MCHC (32.2-35.5) g/dl RDW Std Deviation (36.4-46.3) fL Plt Count (182-369) K/mm3 MPV (9.4-12.3) fl Neutrophils % (Manual) (40-60) % Band Neutrophils % (0-10) % Lymphocytes % (Manual) (20-40) % Atypical Lymphs % % Monocytes % (Manual) (2-10) % Eosinophils % (Manual) (0.7-5.8) % Basophils % (Manual) (0.1-1.2) Platelet Estimate RBC Morph Comment Sodium (136-145) mEq/L Potassium (3.5-5.1) mEq/L Chloride (98-107) mEq/L Carbon Dioxide (21-32) mEq/L Anion Gap (5-15) BUN (7-18) mg/dL Creatinine (0.55-1.02) mg/dL Est Cr Clr Drug Dosing mL/min Estimated GFR (MDRD) (>60) mL/min BUN/Creatinine Ratio (14-18) Glucose (74-106) mg/dL Calcium (8.5-10.1) mg/dL Total Bilirubin (0.2-1.0) mg/dL AST (15-37) U/L ALT (14-59) U/L Alkaline Phosphatase (46-116) U/L Total Protein (6.4-8.2) g/dl Albumin (3.4-5.0) g/dl Globulin gm/dL Albumin/Globulin Ratio (1-2) Lipase (73-393) U/L Urine Color (Yellow) Urine Appearance (Clear) Urine pH (5.0-8.0) Ur Specific Crook (1.005-1.030) Urine Protein (Negative) Urine Glucose (UA) (Negative) Urine Ketones (Negative) Urine Occult Blood (Negative) Urine Nitrite (Negative) Urine Bilirubin (Negative) Urine Urobilinogen (0.2-1.0) Ur Leukocyte Esterase (Negative) Urine RBC (0-5) /hpf Urine WBC (0-5) /hpf Ur Squamous Epith Cells (0-5) /hpf Urine Bacteria (FEW) /hpf Urine Mucus (FEW) /hpf Urine HCG, Qual Negative (NEGATIVE) Meds: Medications Discontinued Medications Generic Name Dose Route Start Last Admin Trade Name Freq PRN Reason Stop Dose Admin Hydromorphone HCl 1 mg 09/05/20 19:49 09/05/20 19:59 Hydromorphone 1 Mg/Ml Syringe IVPUSH 09/05/20 19:50 1 mg ONETIME STA Administration Sodium Chloride 1,000 mls @ 999 mls/hr 09/05/20 19:50 09/05/20 20:00 Normal Saline IV 09/05/20 20:50 999 mls/hr ONETIME ONE Administration Metoclopramide HCl 10 mg 09/05/20 19:50 09/05/20 19:59 Metoclopramide 10 Mg/2 Ml Sdv IVPUSH 09/05/20 19:51 10 mg ONETIME STA Administration - Re-Assessments/Exams Free Text/Narrative Re-Assessment/Exam: 09/05/20 19:54 As above, the patient presents with recurrent left upper quadrant abdominal pain and nausea that she states is due to chronic pancreatitis. On examination, her abdomen is soft with normoactive bowel sounds, and minimal tenderness. I have ordered a work-up and includes several blood tests, urinalysis, and a urine test, however, given her physical exam, I do not see an indication for an imaging study of her abdomen at this time. In the meantime, the patient will be given some IV Dilaudid, IV Reglan, and IV fluid, to see if we can get her feeling better. 09/05/20 22:14 The patient's CBC is unremarkable. Her CMP is remarkable for an anion gap slightly elevated at 17.9, but with a bicarbonate normal at 24, and the remainder of her CMP being unremarkable. Her lipase level is modestly elevated at 460. Her urinalysis is unremarkable. Her urine test is negative. 09/05/20 22:16 Test results discussed with the patient and her . As above, today's work -up is grossly unremarkable. She states that she feels somewhat better. I offered to talk to the Hospitalist to place her into observation, but she would prefer to go home. She requested a prescription for tramadol. Departure - Departure Time of Disposition: 22:17 Disposition: Home, Self-Care 01 Condition: Good Clinical Impression: Nausea Abdominal pain Qualifiers: Abdominal location: left upper quadrant Qualified Code(s): R10.12 - Left upper quadrant pain - Discharge Information *PRESCRIPTION DRUG MONITORING PROGRAM REVIEWED*: Not Applicable *COPY OF PRESCRIPTION DRUG MONITORING REPORT IN PATIENT LUCIEN: Not Applicable Prescriptions: traMADol [Ultram] 1 tab PO Q6H PRN #10 tab PRN Reason: Pain (Severe 7-10) Referrals: PCP,None [Primary Care Provider] - Bin Zamora MD [Physician] - Kajal Salazar NP [Nurse Practitioner] - Kristian Barone MD [Physician] - Forms: ED Department Discharge Additional Instructions: You were seen in the emergency room for upper left abdominal pain and nausea that has been coming and going since Wednesday. Work-up in the ER included several blood tests, urinalysis, and a urine test. Your lipase level was found to be modestly elevated at 460, otherwise, the remainder of your work-up was unremarkable. You had some improvement of your symptoms following IV Dilaudid, IV Reglan, and IV fluid. We recommend that you continue to take your usual medications as prescribed. A prescription for the opioid pain reliever tramadol has been provided to you. You may take 1 tablet of tramadol up to every 6 hours, as needed for pain. If you take tramadol, do not drive for 12 hours afterwards. Tramadol may cause constipation, so consider taking a stool softener. We recommend that you follow-up with Dr. Kristian Barone, your Powertrain Control Systems Engineer at the [facility], at the next available appointment. If any other problems, please do not hesitate to return to the ER. Sepsis Event Note (ED) - Evaluation Sepsis Screening Result: No Definite Risk - Focused Exam Vital Signs: Vital Signs Temp Pulse Resp BP Pulse Ox 09/05/20 18:52 36.2 C 67 17 126/79 100
[2020-09-05 23:32] VITALS: BP 108/73; PULSE 55
== END 2020-09-05 23:00 | disposition home or self-care (01) ==
LOC: JD.ED 18:44
DX: R10.12 Left upper quadrant pain (principal); R10.13 Epigastric pain; R11.0 Nausea; R74.8 Abnormal levels of other serum enzymes; K21.9 Gastro-esophageal reflux disease without esophagitis; Z72.0 Tobacco use; Z91.040 Latex allergy status; Z88.1 Allergy status to other antibiotic agents; Z88.2 Allergy status to sulfonamides; Z88.0 Allergy status to penicillin; Z79.899 Other long term (current) drug therapy
CPT/HCPCS: 36415; 80053; 81001; 81025; 83690; 85007; 85027; 96374; 96375; 99284; J1170; J2765; J7030

== ENCOUNTER 2020-12-19 16:06 | Emergency (ER) | payer BC ==
[2020-12-19 16:21] VITALS: BP 107/61; PULSE 95
[2020-12-19] MEDS ORDERED: Sodium Chloride 0.9% 10 ML Syringe FLUSH PRN (16:25)
[2020-12-19] MEDS ORDERED: Sodium Chloride 0.9% 1,000 ML IV STA (16:31)
[2020-12-19] MEDS ORDERED: Ondansetron 4 MG/2 ML SDV IVPUSH ONE (16:31)
--- NOTE | 2020-12-19 16:41 | EDM.PDOC ---
ED HPI GENERAL MEDICAL PROBLEM - General Chief Complaint: Gastrointestinal Problem Stated Complaint: 14 WEEKS PREG/UNABLE TO EAT OR DRINK/LIGHT HEADED Time Seen by Provider: 12/19/20 16:24 Source of Information: Reports: Patient, RN Notes Reviewed History Limitations: Reports: No Limitations - History of Present Illness INITIAL COMMENTS - FREE TEXT/NARRATIVE: Patient is a 30-year-old female G7, P3 14 weeks gestation presenting to the emergency department with complaints of nausea and vomiting over the last few days as well as lightheadedness upon standing. She reports that for last 2 days she has been unable to eat or keep foods down, however she is still able to take in liquids. She denies any significant abdominal pain. Reports that she feels she had a fever earlier today. She checked it at home and states that it was 101. She did have some mild diarrhea yesterday. She states that she occasionally has some mild pelvic cramping but that this is nothing out of the normal for her. She is had no abnormal vaginal discharge. Denies any respiratory symptoms. Reports that her daughter was sick yesterday with respiratory symptoms but did not have any vomiting or diarrhea. Denies any other known sick exposures. Patient does have a history of chronic pancreatitis but denies any abdominal pain at this time. Reports that she has had flares in the past which presented with just vomiting but no abdominal pain. Lower Abdomen Pain Score (Numeric/FACES): 2 - Related Data Allergies Allergy/AdvReac Type Severity Reaction Status Date / Time Latex, Natural Rubber Allergy Rash Verified 12/19/20 16:21 metronidazole [From Flagyl] Allergy Rash Verified 12/19/20 16:21 sulfamethoxazole Allergy Rash Verified 12/19/20 16:21 [From Bactrim] trimethoprim [From Bactrim] Allergy Rash Verified 12/19/20 16:21 amoxicillin trihydrate AdvReac Vomiting Verified 12/19/20 16:21 [From Augmentin] potassium clavulanate AdvReac Vomiting Verified 12/19/20 16:21 [From Augmentin] Home Meds: Home Meds #103/Iron Fumarate/Fa [ ] 1 tab PO DAILY 04/29/18 [History] Calcium Carbonate [Calcium] 500 mg PO DAILY 04/08/19 [History] L.acidoph,Paracasei, B.lactis [Probiotic] 1 cap PO DAILY 04/08/19 [History] [place]-3/DHA/Epa/Fish Oil [Fish Oil 500 MG Softgel] 1,000 mg PO DAILY 04/08/19 [History] Acetaminophen [Tylenol] 650 mg PO Q4H PRN tablet 02/02/20 [Rx] Pantoprazole [ProTONIX] 40 mg PO DAILY 03/12/20 [History] Ondansetron [Zofran] 4 mg PO Q6H PRN #15 tab 03/23/20 [Rx] buPROPion [Wellbutrin] 300 mg PO DAILY 07/08/20 [History] Ascorbate Calcium [Vitamin C] 500 mg PO DAILY 09/05/20 [History] LORazepam [Ativan] 1 mg PO BID 09/05/20 [History] Sertraline HCl 75 mg PO DAILY 09/05/20 [History] traMADol [Ultram] 1 tab PO Q6H PRN #10 tab 09/05/20 [Rx] traMADol [Ultram] 50 mg PO Q6H 09/05/20 [History] Ondansetron [Zofran ODT] 4 mg PO Q6H PRN #10 tab.dis 12/19/20 [Rx] cephALEXin [Keflex] 500 mg PO Q6H 5 Days #20 cap 12/19/20 [Rx] Past Medical History HEENT History: Reports: Impaired Vision Cardiovascular History: Reports: None Respiratory History: Reports: Other (See Below) Other Respiratory History: former smoker x 9 years. had 5-6 cig aday. Quit 2019. Gastrointestinal History: Reports: GERD, Pancreatitis Other Gastrointestinal History: History of C-dff Genitourinary History: Reports: None RUNNER ON History: Reports: Spontaneous Other RUNNER ON History: D&C x2 Musculoskeletal History: Reports: Other (See Below) Neurological History: Reports: None Psychiatric History: Reports: Anxiety, Depression Endocrine/Metabolic History: Reports: None - Infectious Disease History Infectious Disease History: Reports: C-Difficile - Past Surgical History Head Surgeries/Procedures: Reports: Other (See Below) HEENT Surgical History: Reports: Naso-Sinus Surgery, Oral Surgery Other HEENT Surgeries/Procedures: wisdom teeth removal Respiratory Surgical History: Reports: None GI Surgical History: Reports: Abdominal paracentesis, Cholecystectomy, ERCP Other GI Surgeries/Procedures: chronic pancreatic problems, stents in and stent out several times. Female Surgical History: Reports: D&C Other Musculoskeletal Surgeries/Procedures:: hammertoe correction rt foot 2nd toe. 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 ED EXAM, GI/ABD - Physical Exam Exam: See Below Exam Limited By: No Limitations General Appearance: Alert, WD/WN, No Apparent Distress Respiratory/Chest: No Respiratory Distress, Lungs Clear, Normal Breath Sounds, No Accessory Muscle Use, Chest Non-Tender Cardiovascular: Normal Peripheral Pulses, Regular Rate, Rhythm, No Edema, No Gallop, No JVD, No Murmur, No Rub GI/Abdominal Exam: Normal Bowel Sounds, Soft, Non-Tender, No Organomegaly, No Distention, No Abnormal Bruit, No Mass, Pelvis Stable (Female) Exam: Heart Tones (170) Neurological: Alert, Oriented, CN II-XII Intact, Normal Cognition, Normal Gait, Normal Reflexes, No Motor/Sensory Deficits Psychiatric: Normal Affect, Normal Mood Skin Exam: Warm, Dry, Intact, Normal Color, No Rash #1 Interpretation EKG Date: 12/19/20 Time: 17:32 Rhythm: NSR Rate (Beats/Min): 74 [place]: Normal P-Wave: Present QRS: RBBB (incomplete) ST-T: Normal QT: Normal Course - Vital Signs Last Recorded V/S: Last Vital Signs Temp 98.9 F 12/19/20 16:19 Pulse 95 12/19/20 16:19 Resp 16 12/19/20 16:19 BP 107/61 12/19/20 16:19 Pulse Ox 99 12/19/20 16:19 Orthostatic Blood Pressure [ 95/48 Standing] Orthostatic Blood Pressure [ 107/61 Sitting] Orthostatic Blood Pressure [ 105/60 Supine] - Orders/Labs/Meds Labs: Laboratory Tests 12/19/20 12/19/20 12/19/20 Range/Units 15:55 16:35 16:50 WBC 4.99 (3.98-10.04) K/mm3 RBC 4.00 (3.98-5.22) M/mm3 Hgb 11.6 (11.2-15.7) gm/dl Hct 35.3 (34.1-44.9) % MCV 88.3 (79.4-94.8) fl MCH 29.0 (25.6-32.2) pg MCHC 32.9 (32.2-35.5) g/dl RDW Std Deviation 41.1 (36.4-46.3) fL Plt Count 218 (182-369) K/mm3 MPV 9.3 L (9.4-12.3) fl Neut % (Auto) 73.0 H (34.0-71.1) % Lymph % (Auto) 19.0 L (19.3-51.7) % [place] % (Auto) 7.2 (4.7-12.5) % Eos % (Auto) 0.4 L (0.7-5.8) Baso % (Auto) 0.2 (0.1-1.2) % Neut # (Auto) 3.64 (1.56-6.13) K/mm3 Lymph # (Auto) 0.95 L (1.18-3.74) K/mm3 [place] # (Auto) 0.36 (0.24-0.36) K/mm3 Eos # (Auto) 0.02 L (0.04-0.36) K/mm3 Baso # (Auto) 0.01 (0.01-0.08) K/mm3 Sodium 139 (136-145) mEq/L Potassium 3.3 L (3.5-5.1) mEq/L Chloride 105 (98-107) mEq/L Carbon Dioxide 20 L (21-32) mEq/L Anion Gap 17.3 H (5-15) BUN 7 (7-18) mg/dL Creatinine 0.7 (0.55-1.02) mg/dL Est Cr Clr Drug Dosing 112.20 mL/min Estimated GFR (MDRD) > 60 (>60) mL/min BUN/Creatinine Ratio 10.0 L (14-18) Glucose 92 (70-99) mg/dL Calcium 8.3 L (8.5-10.1) mg/dL Total Bilirubin 0.2 (0.2-1.0) mg/dL AST 14 L (15-37) U/L ALT 22 (14-59) U/L Alkaline Phosphatase 82 (46-116) U/L Total Protein 7.1 (6.4-8.2) g/dl Albumin 3.3 L (3.4-5.0) g/dl Globulin 3.8 gm/dL Albumin/Globulin Ratio 0.9 L (1-2) Lipase 120 (73-393) U/L Urine Color (Yellow) Urine Appearance (Clear) Urine pH (5.0-8.0) Ur Specific [place] (1.005-1.030) Urine Protein (Negative) Urine Glucose (UA) (Negative) Urine Ketones (Negative) Urine Occult Blood (Negative) Urine Nitrite (Negative) Urine Bilirubin (Negative) Urine Urobilinogen (0.2-1.0) Ur Leukocyte Esterase (Negative) Urine RBC (0-5) /hpf Urine WBC (0-5) /hpf Ur Squamous Epith Cells (0-5) /hpf Urine Bacteria (FEW) /hpf Urine Mucus (FEW) /hpf SARS-CoV-2 RNA (JUNI) Positive H (NEGATIVE) 12/19/20 Range/Units 18:24 WBC (3.98-10.04) K/mm3 RBC (3.98-5.22) M/mm3 Hgb (11.2-15.7) gm/dl Hct (34.1-44.9) % MCV (79.4-94.8) fl MCH (25.6-32.2) pg MCHC (32.2-35.5) g/dl RDW Std Deviation (36.4-46.3) fL Plt Count (182-369) K/mm3 MPV (9.4-12.3) fl Neut % (Auto) (34.0-71.1) % Lymph % (Auto) (19.3-51.7) % [place] % (Auto) (4.7-12.5) % Eos % (Auto) (0.7-5.8) Baso % (Auto) (0.1-1.2) % Neut # (Auto) (1.56-6.13) K/mm3 Lymph # (Auto) (1.18-3.74) K/mm3 [place] # (Auto) (0.24-0.36) K/mm3 Eos # (Auto) (0.04-0.36) K/mm3 Baso # (Auto) (0.01-0.08) K/mm3 Sodium (136-145) mEq/L Potassium (3.5-5.1) mEq/L Chloride (98-107) mEq/L Carbon Dioxide (21-32) mEq/L Anion Gap (5-15) BUN (7-18) mg/dL Creatinine (0.55-1.02) mg/dL Est Cr Clr Drug Dosing mL/min Estimated GFR (MDRD) (>60) mL/min BUN/Creatinine Ratio (14-18) Glucose (70-99) mg/dL Calcium (8.5-10.1) mg/dL Total Bilirubin (0.2-1.0) mg/dL AST (15-37) U/L ALT (14-59) U/L Alkaline Phosphatase (46-116) U/L Total Protein (6.4-8.2) g/dl Albumin (3.4-5.0) g/dl Globulin gm/dL Albumin/Globulin Ratio (1-2) Lipase (73-393) U/L Urine Color Light yellow (Yellow) Urine Appearance Clear (Clear) Urine pH 7.0 (5.0-8.0) Ur Specific [place] 1.015 (1.005-1.030) Urine Protein Negative (Negative) Urine Glucose (UA) Negative (Negative) Urine Ketones Negative (Negative) Urine Occult Blood Negative (Negative) Urine Nitrite Negative (Negative) Urine Bilirubin Negative (Negative) Urine Urobilinogen 0.2 (0.2-1.0) Ur Leukocyte Esterase 1+ H (Negative) Urine RBC 0-5 (0-5) /hpf Urine WBC 5-10 H (0-5) /hpf Ur Squamous Epith Cells 0-5 (0-5) /hpf Urine Bacteria Few (FEW) /hpf Urine Mucus Not seen (FEW) /hpf SARS-CoV-2 RNA (JUNI) (NEGATIVE) Meds: Medications Discontinued Medications Generic Name Dose Route Start Last Admin Trade Name Freq PRN Reason Stop Dose Admin Sodium Chloride 1,000 mls @ 999 mls/hr 12/19/20 16:31 12/19/20 16:46 Normal Saline IV 12/19/20 17:31 999 mls/hr NOW STA Administration Ondansetron HCl 4 mg 12/19/20 16:31 12/19/20 16:46 Ondansetron 4 Mg/2 Ml Sdv IVPUSH 12/19/20 16:32 4 mg ONETIME ONE Administration Sodium Chloride 10 ml 12/19/20 16:25 12/19/20 16:46 Sodium Chloride 0.9% 10 Ml Syringe FLUSH 10 ml ASDIRECTED PRN Administration Keep Vein Open - Re-Assessments/Exams Free Text/Narrative Re-Assessment/Exam: Patient is a 30-year-old female presenting to the emergency room with complaints of a few day history of vomiting and inability to keep food down, as well as some dizziness upon standing. She reports that she did have a temperature of 101 this morning, however she is not sure if her thermometer was accurate. States she did feel febrile however. Daughter at home is sick with respiratory illness. Patient is 14 weeks . States that she has some occasional cramping but that this is her "normal cramps ". No abnormal vaginal discharge. heart tones are normal at 170. Exam is grossly unremarkable. She does have a history of chronic pancreatitis. I have ordered blood work and urinalysis. Given her symptoms as well as the fact that her daughter is sick with respiratory illness, I have also ordered a Covid test. 12/19/20 18:30 Hematology significant for potassium slightly low at 3.3, CO2 20, anion gap 17.3. Urinalysis is pending. Covid is unfortunately positive. This is likely the cause of patient's symptoms. She is providing us a urine now. 12/19/20 18:57 Urinalysis was significant for 1+ leukocyte esterase and 5-10 WBCs. Since jose gonzalez is , we will treat for asymptomatic bacteria. We will start her on Keflex. Also sent prescription for Zofran for nausea. Recommend increase fluid intake. Discussed return precautions. Discharge instructions as document. Departure - Departure Time of Disposition: 18:57 Disposition: Home, Self-Care 01 Condition: Good Clinical Impression: Asymptomatic bacteriuria during , COVID-19 - Discharge Information *PRESCRIPTION DRUG MONITORING PROGRAM REVIEWED*: No *COPY OF PRESCRIPTION DRUG MONITORING REPORT IN PATIENT LUCIEN: No Prescriptions: cephALEXin [Keflex] 500 mg PO Q6H 5 Days #20 cap Ondansetron [Zofran ODT] 4 mg PO Q6H PRN #10 tab.dis PRN Reason: Nausea/Vomiting Instructions: and COVID-19 Referrals: Bin Zamora MD [Primary Care Provider] - Forms: ED Department Discharge Additional Instructions: You were seen in the emergency department today for vomiting and dizziness upon standing. Work-up included blood work, urinalysis, and a Covid screen. Unfortunately a Covid screen was found to be positive. You also had some bacteria in your urine. Recommend that you go home and rest. Increase your fluid intake is much as tolerated. You have been started on cephalexin for treatment of bacteria in your urine. Is also been provided a prescription for Zofran for nausea. Follow the quarantine guidelines as put in place by the [place] [facility]. If you should experience any new or worsenin g symptoms, please not hesitate to return to the ER for reevaluation. Sepsis Event Note (ED) - Evaluation Sepsis Screening Result: No Definite Risk
== END 2020-12-19 19:15 | disposition home or self-care (01) ==
LOC: JD.ED 16:06
DX: O98.512 Other viral diseases complicating pregnancy, second trimester (principal); O99.891 Other specified diseases and conditions complicating pregnancy; U07.1 COVID-19; R82.71 Bacteriuria; Z91.040 Latex allergy status; Z88.1 Allergy status to other antibiotic agents; Z88.0 Allergy status to penicillin; Z79.899 Other long term (current) drug therapy; Z3A.14 14 weeks gestation of pregnancy
CPT/HCPCS: 36415; 80053; 81001; 83690; 85025; 87635; 93005; 96374; 99284; J2405; J7030; U0002

== ENCOUNTER 2021-06-06 03:18 | Inpatient (IN) | payer BC ==
[2021-06-06] MEDS ORDERED: Nalbuphine 10 MG/1 ML Vial IVPUSH PRN (04:09)
[2021-06-06] MEDS: Lactated Ringers 1,000 ML IV SCH ×3 (05:04→09:29)
[2021-06-06] MEDS: Oxytocin/Lactated Ringers 10 UNIT/1,000 ML BAG IV SCH ×2 (05:09→13:34)
[2021-06-06] MEDS: Clindamycin Phosphate in D5W 900 MG in Premix Bag 1 BAG IV SCH ×4 (05:14→12:48)
[2021-06-06] MEDS ORDERED: ePHEDrine 50 MG/ML SDV IVPUSH PRN (07:29)
[2021-06-06] MEDS ORDERED: diphenhydrAMINE 50 MG/ML SDV IVPUSH PRN (07:29)
[2021-06-06] MEDS ORDERED: Bupivacaine/fentaNYL/NS 100 ML Bag EPIDUR PRN (07:29)
[2021-06-06] MEDS ORDERED: fentaNYL 100 MCG/2 ML SDV EPIDUR PRN (07:29)
--- NOTE | 2021-06-06 07:58 | PCM.LDHP ---
<Abbie Amaya Medhat - Last Filed: 06/06/21 11:52> L&D History of Present Illness - General Date of Service: 06/06/21 Admit Problem/Dx: Patient Status Order with Admit Dx/Problem 06/06/21 04:09 Patient Status [ADT] Routine Admission Diagnosis/Problem Admission Diagnosis/Problem 06/06/21 07:52 Marita is a 30 year-old 7 para 3-0-3-3 female presently 39 weeks gestational age with an ELENA of 06/13/21 admitted for induction of labor. On cervical exam, she is 2+ cm dilated, 60% effaced, -5 station, midposition, soft, cephalic presentation. 06/06/21 09:09 06/06/21 09:17 06/06/21 11:52 - History of Present Illness Introduction:: Marita is a 30 year-old 7 para 3-0-3-3 female presently 39 weeks gestational age with an ELENA of 06/13/21 admitted for induction of labor. On cervical exam, she is 2+ cm dilated, 60% effaced, -5 station, midposition, soft, cephalic presentation.. Patient came in at 300am for induction of labor and is now hortencia regularly. She would like an epidural for pain at this time before AROM. heart tones reassuring. 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 Patient had normal menarche, but does not remember at what age. Cycles regular. LMP 08/30/20 was relatively certain and gave an ELENA of 06/06/21. Early US on 11/20/20 gave an ELENA of 06/13/21 and that is the final ELENA. She had 3 ultrasounds during the course of the and all were fairly consistent with the early ultrasound dating. Previous obstetric history: 02/01/2020 39-4 3 8 lbs 5 oz F (Normal Spontaneous Vaginal Delivery) Epidural [facility] Sheyla Quinones 05/04/2018 6 Molar pg/D&C 05/26/2016 38-3 8 7 lbs 6 oz M (Normal Spontaneous Vaginal Delivery) Epi dural [place] "" 2014 5 Aborted - Spontaneous 01/28/2015 40-2 14 8 lbs 10 oz M (Normal Spontaneous Vaginal Delivery) Epidural [facility] Patient denies any STIs. History of abnormal pap smear but recheck was normal. history: Patient's initial visit was at 10-5/7 weeks g estational age. She was seen on a very regular basis throughout the course. Her weight gain was from 147 to 187 pounds (40lb increase). Fundal height growth was appropriate. Vital signs including blood pressure was stable throughout the course. Patient did have Covid in December and has no residual effects at this time. She is group B strep positive and is receiving Clindamycin during labor. Patient declined prequel noninvasive screen. She plans to bottle feed while in the hospital and transition to breast feeding once she is home. She is interested in epidural for analgesia and labor. Patient received her Tdap on 04/29/21. She is rubella immune. Laboratory testing in : Blood is a O positive with negative antibody screen. First hemoglobin was 12.3 g/dL. Platelets 238,000. Patient is rubella immune. RPR was nonreactive. Urine culture was suggestive of contamination. Hepatitis B surface antigen and HIV assays were both negative. Chlamydia, gonorrhea, and HCV antibody testing were all negative. Second trimester laboratory testing showed hemoglobin 11.2 g/dL. Platelets were 197,000 and diabetes screen 3 hour was 80. Group B strep was positive. Past medical history: 1. x3 2. Miscarriage x3 3. Hx of molar 4. Chronic pancreatitis Past surgical history: 1. D&C in 2018 2. cholecystectomy 3. sinus surgery 4. pancreatic stents placed/removed 5. wisdom teeth removed 6. root canal Family history: Mother is alive and well. Father is alive . 3 Sister all alive and well, 1 with extreme PTSD. MGM is alive, diabetic on oral medication. MGF is , prostate and colon cancer age 80s. PGM is alive age 90. PGF is alive age 90. No known family history of cancer, bleeding/blood clotting disorders, anesthesia related issues, or related issues. Family history of depression or anxiety. Social history: Patient is . 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 She does not use any significant alcohol or drugs. She does smoke .5 pack a day. Her domestic partner is Harvinder. They live in [place], [place]. Review of systems: In general patient has no complaints. She does feel c ontractions that are progressive in nature. She denies any leakage of fluid. Baby has been active. Skin: negative Lungs: No infectious symptoms or shortness of breath Cardiovascular: No chest pain or exercise intolerance Breasts: No lumps, changes in size, pain, dimpling, discharge or axillary or supraclavicular concerns GI: negative : cervix as per HPI MSK: negative Neurological: Negative PE: In general, the patient is well-developed, well-nourished, pleasant female of stated age in no acute distress Skin: warm and dry without lesions HEENT, neck, and back within normal limits Lungs are clear with good breath sounds in all lung ronquillo. Cardiovascular exam shows regular rhythm with no murmurs Breast exam done at first visit was normal. It is not repeated at this time. Patient does plan to initially bottle feed in hospital and transition to breast feeding when at home. Abdomen is gravid with last fundal height in clinic at about 38 cm. Baby in vertex presentation by Ulises maneuvers. Genital per digital exam shows an enlarged uterus. Cervix as described above. Bag vicente intact. Extremities and neurological exam are grossly within normal limits. Pain Score: 4 - Related Data Allergies/Adverse Reactions: Allergies Allergy/AdvReac Type Severity Reaction Status Date / Time Latex, Natural Rubber Allergy Rash Verified 06/06/21 06:31 metronidazole [From Flagyl] Allergy Rash Verified 12 06:31 sulfamethoxazole Allergy Rash Verified 06/06/21 06:31 [From Bactrim] trimethoprim [From Bactrim] Allergy Rash Verified 06/06/21 06:31 amoxicillin trihydrate AdvReac Vomiting Verified 06/06/21 06:31 [From Augmentin] potassium clavulanate AdvReac Vomiting Verified 06/06/21 06:31 [From Augmentin] Home Medications: Home Meds #103/Iron Fumarate/Fa [ ] 1 tab PO DAILY 04/29/18 [History] Calcium Carbonate [Calcium] 500 mg PO DAILY 04/08/19 [History] L.acidoph,Paracasei, B.lactis [Probiotic] 1 cap PO DAILY 04/08/19 [History] [place]-3/DHA/Epa/Fish Oil [Fish Oil 500 MG Softgel] 1,000 mg PO DAILY 04/08/19 [History] Ascorbate Calcium [Vitamin C] 500 mg PO DAILY 09/05/20 [History] Ferrous Sulfate 1 tab PO DAILY 06/06/21 [History] Folic Acid 1 tab PO DAILY 06/06/21 [History] Lansoprazole [Prevacid] 1 cap PO DAILY 06/06/21 [History] Past Medical History HEENT History: Reports: Impaired Vision Other HEENT History: Sinus surgery 2007 Cardiovascular History: Reports: None Respiratory History: Reports: Other (See Below) Other Respiratory History: former smoker x 9 years. had 5-6 cig aday. Currently attempting to quit. Smokes "some days" and usually only 2-3 cigarettes a day. Gastrointestinal History: Reports: GERD, Pancreatitis Other Gastrointestinal History: History of C-dff and fecal transplant 2014 Genitourinary History: Reports: None DENTAL SCHEDULING COORDINATOR History: Reports: Spontaneous Other OB/BYN History: D&C x3 and molar Musculoskeletal History: Reports: Other (See Below) Neurological History: Reports: None Psychiatric History: Reports: Anxiety, Depression Other Psychiatric History: Hx of severe depression Endocrine/Metabolic History: Reports: None - Infectious Disease History Infectious Disease History: Reports: C-Difficile - Past Surgical History Head Surgeries/Procedures: Reports: Other (See Below) HEENT Surgical History: Reports: Naso-Sinus Surgery, Oral Surgery Other HEENT Surgeries/Procedures: wisdom teeth removal 2004 Respiratory Surgical History: Reports: None GI Surgical History: Reports: Abdominal paracentesis, Cholecystectomy, ERCP Other GI Surgeries/Procedures: chronic pancreatic problems, stents in and stent out several times. Female Surgical History: Reports: D&C Other Musculoskeletal Surgeries/Procedures:: hammertoe correction rt foot 2nd toe. 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) L&D Exam - Vital Signs Vital Signs: Last Vital Signs Temp 98.4 F 06/06/21 03:45 Pulse 94 06/06/21 03:45 Resp 16 06/06/21 03:45 BP 114/62 06/06/21 03:45 Pulse Ox 99 06/06/21 03:45 Weight: 85.865 kg - Patient Data Lab Results Last 24 hrs: Laboratory Results - last 24 hr 06/06/21 06/06/21 06/06/21 Range/Units 04:20 04:20 05:00 WBC 9.43 (3.98-10.04) K/mm3 RBC 3.64 L (3.98-5.22) M/mm3 Hgb 11.3 (11.2-15.7) gm/dl Hct 34.3 (34.1-44.9) % MCV 94.2 (79.4-94.8) fl MCH 31.0 (25.6-32.2) pg MCHC 32.9 (32.2-35.5) g/dl RDW Std Deviation 44.9 (36.4-46.3) fL Plt Count 160 L (182-369) K/mm3 MPV 9.2 L (9.4-12.3) fl Neut % (Auto) 59.8 (34.0-71.1) % Lymph % (Auto) 31.4 (19.3-51.7) % Mcmullen % (Auto) 5.9 (4.7-12.5) % Eos % (Auto) 1.2 (0.7-5.8) Baso % (Auto) 0.3 (0.1-1.2) % Neut # (Auto) 5.64 (1.56-6.13) K/mm3 Lymph # (Auto) 2.96 (1.18-3.74) K/mm3 Mcmullen # (Auto) 0.56 H (0.24-0.36) K/mm3 Eos # (Auto) 0.11 (0.04-0.36) K/mm3 Baso # (Auto) 0.03 (0.01-0.08) K/mm3 SARS-CoV-2 RNA (JUNI) Negative (NEGATIVE) Blood Type O POSITIVE Gel Antibody Screen Negative Result Diagrams: 06/06/21 04:20 - Problem List (1) Elective induction of labor planned SNOMED Code(s): 264923268 ICD Code: [id number] - Status: Acute Current Visit: Yes Problem List Initiated/Reviewed/Updated: Yes Orders Last 24hrs: Active Orders 24 hr Category Date Time Status Patient Status [ADT] Routine ADT 06/06/21 04:09 Active Activity as Tolerated [RC] PFP Care 06/06/21 04:09 Active Communication Order [RC] ASDIRECTED Care 06/06/21 04:09 Active Communication Order [RC] ASDIRECTED Care 06/06/21 07:30 Active Cooling Warming Measures [RC] ASDIRECTED Care 06/06/21 07:30 Active Heart Tones [RC] ASDIRECTED Care 06/06/21 04:10 Active Non Stress Test [RC] PER UNIT ROUTINE Care 06/06/21 04:09 Active Notify Provider [RC] ASDIRECTED Care 06/06/21 07:30 Active Notify Provider [RC] ASDIRECTED Care 06/06/21 07:30 Active Notify Provider [RC] PFP Care 06/06/21 04:09 Active Notify Provider [RC] PRN Care 06/06/21 04:09 Active Oxygen Therapy [RC] ASDIRECTED Care 06/06/21 07:30 Active Peripheral IV Care [RC] . DIRECTED Care 06/06/21 04:10 Active Pulse Oximetry [RC] ASDIRECTED Care 06/06/21 07:30 Active Urinary Catheter Assessment [RC] ASDIRECTED Care 06/06/21 04:09 Active Vital Signs [RC] 03,09,15,21 Care 06/06/21 04:09 Active Regular Diet [DIET] Diet 06/06/21 Breakfast Active RAPID PLASMA REAGIN,RPR [CHEM] Routine Lab 06/06/21 04:20 Received Bupivacaine/fentaNYL/NS [fentaNYL/Bupivacaine/NS 2 MCG- Med 06/06/21 07:29 Active 0.125% 100 ML] 100 ml EPIDUR ASDIRECTED PRN Clindamycin Phosphate in D5W [Cleocin in D5W 900 MG/50 Med 06/06/21 04:30 Active ML] 900 mg Premix Bag 1 bag IV Q8H Lactated Ringers [Ringers, Lactated] 1,000 ml Med 06/06/21 04:15 Active IV ASDIRECTED Nalbuphine [Nubain] Med 06/06/21 04:09 Active 10 mg IVPUSH Q2H PRN Oxytocin/Lactated Ringers [Pitocin in LR 10 Units/1,000 Med 06/06/21 04:15 Active ML] 10 unit in 1,000 ml IV TITRATE Sodium Chloride 0.9% [Saline Flush] Med 06/06/21 09:00 Active 10 ml FLUSH 0900,2100 diphenhydrAMINE [Benadryl] Med 06/06/21 07:29 Active 25 mg IVPUSH Q6H PRN ePHEDrine [ePHEDrine sulfate] Med 06/06/21 07:29 Active 5 mg IVPUSH ASDIRECTED PRN fentaNYL [Sublimaze] Med 06/06/21 07:29 Active 100 mcg EPIDUR Q3H PRN Electronic Heart Tones Ext w TOCO [WOMSER] Oth 06/06/21 04:09 Ordered Routine Electronic Heart Tones Internal [WOMSER] Per Unit Oth 06/06/21 04:09 Ordered Routine Peripheral IV Insertion Adult [OM.PC] Routine Oth 06/06/21 04:09 Ordered Resuscitation Status Routine Resus Stat 06/06/21 04:09 Ordered Medication Orders Diphenhydramine HCl (Diphenhydramine 50 Mg/Ml Sdv) 25 mg IVPUSH Q6H PRN PRN Reason: pruritis Ephedrine Sulfate (Ephedrine 50 Mg/Ml Sdv) 5 mg IVPUSH ASDIRECTED PRN PRN Reason: Hypotension Fentanyl (Fentanyl 100 Mcg/2 Ml Sdv) 100 mcg EPIDUR Q3H PRN PRN Reason: Pain Last Admin: 06/06/21 07:42 Dose: 100 mcg Documented by: IOANA Fentanyl/Bupivacaine HCl (Bupivacaine/Fentanyl/Ns 100 Ml Bag) 100 ml EPIDUR ASDIRECTED PRN PRN Reason: Pain Last Admin: 06/06/21 07:41 Dose: 100 ml Documented by: IOANA Clindamycin Phosphate 900 mg/ (Premix) 50 mls @ 100 mls/hr IV Q8H KATTY Last Admin: 06/06/21 05:14 Dose: 100 mls/hr Documented by: MARIA D Oxytocin/Lactated Ringer's (Pitocin In Lr 10 Units/1,000 Ml) 10 unit in 1,000 m ls @ 12 mls/hr IV TITRATE KATTY; Protocol Last Titration: 06/06/21 06:30 Dose: 10 munits/min, 60 mls/hr Documented by: MARIA D Titration: 06/06/21 06:00 Dose: 8 munits/min, 48 mls/hr Documented by: MARIA D Titration: 06/06/21 05:45 Dose: 6 munits/min, 36 mls/hr Documented by: MARIA D Titration: 06/06/21 05:31 Dose: 4 munits/min, 24 mls/hr Documented by: MARIA D Admin: 06/06/21 05:09 Dose: 2 munits/min, 12 mls/hr Documented by: MARIA D Lactated Ringer's (Ringers, Lactated) 1,000 mls @ 100 mls/hr IV ASDIRECTED [facility] Last Admin: 06/06/21 07:41 Dose: 100 mls/hr Documented by: Infusion: 06/06/21 07:41 Dose: 100 mls/hr Documented by: Admin: 06/06/21 05:04 Dose: 100 mls/hr Documented by: MARIA D Nalbuphine HCl (Nalbuphine 10 Mg/1 Ml Vial) 10 mg IVPUSH Q2H PRN PRN Reason: Pain Sodium Chloride (Sodium Chloride 0.9% 10 Ml Syringe) 10 ml FLUSH 0900,2100 [facility] Assessment/Plan Comment:: 1. Marita is a 30 year-old 7 para 3-0-3-3 female presently 39 weeks gestational age with an ELENA of 06/13/21 admitted for induction of labor. On cervical exam, she is 2+ cm dilated, 60% effaced, -5 station, midposition, soft, cephalic presentation. 2. Group B strep screen positive. Clindamycin protocol during labor. 3. Patient desires epidural in labor 4. Patient plans to bottle feed while in the hospital and transition to breast feeding when home 5. Patient has had her Tdap, is rubella immune. 6. Patient had Covid in December 2020 7. Risk factors include: Hx. of Molar , Hx. of x3 miscarriages, Hx. of pancreatitis, Smoker. Plan 1. Anticipate 2. Will monitor labor progression and adjust Pitocin as necessary. 3. Once epidural in place, will perform AROM. 4. Laboratory testing consists of COVID-19, CBC, RPR per protocol 5. Support bottle and breast feeding plan <Bin Zamora - Last Filed: 06/06/21 13:33> L&D History of Present Illness - General Admit Problem/Dx: Patient Status Order with Admit Dx/Problem 06/06/21 04:09 Patient Status [ADT] Routine Admission Diagnosis/Problem Admission Diagnosis/Problem H&P Review of Systems - Review of Systems: Review Of Systems: See Below L&D Exam - Exam Exam: See Below - Vital Signs Vital Signs: Last Vital Signs Temp 36.9 C 06/06/21 03:45 Pulse 94 06/06/21 03:45 Resp 16 06/06/21 03:45 BP 114/62 06/06/21 03:45 Pulse Ox 99 06/06/21 03:45 - Patient Data Lab Results Last 24 hrs: Laboratory Results - last 24 hr 06/06/21 06/06/21 06/06/21 Range/Units 04:20 04:20 05:00 WBC 9.43 (3.98-10.04) K/mm3 RBC 3.64 L (3.98-5.22) M/mm3 Hgb 11.3 (11.2-15.7) gm/dl Hct 34.3 (34.1-44.9) % MCV 94.2 (79.4-94.8) fl MCH 31.0 (25.6-32.2) pg MCHC 32.9 (32.2-35.5) g/dl RDW Std Deviation 44.9 (36.4-46.3) fL Plt Count 160 L (182-369) K/mm3 MPV 9.2 L (9.4-12.3) fl Neut % (Auto) 59.8 (34.0-71.1) % Lymph % (Auto) 31.4 (19.3-51.7) % Mcmullen % (Auto) 5.9 (4.7-12.5) % Eos % (Auto) 1.2 (0.7-5.8) Baso % (Auto) 0.3 (0.1-1.2) % Neut # (Auto) 5.64 (1.56-6.13) K/mm3 Lymph # (Auto) 2.96 (1.18-3.74) K/mm3 Mcmullen # (Auto) 0.56 H (0.24-0.36) K/mm3 Eos # (Auto) 0.11 (0.04-0.36) K/mm3 Baso # (Auto) 0.03 (0.01-0.08) K/mm3 SARS-CoV-2 RNA (JUNI) Negative (NEGATIVE) Blood Type O POSITIVE Gel Antibody Screen Negative Result Diagrams: 06/06/21 04:20 - Problem List (1) 39 weeks gestation of SNOMED Code(s): 19075898 ICD Code: Z3A.39 - 39 WEEKS GESTATION OF Status: Acute Current Visit: Yes (2) Chronic pancreatitis SNOMED Code(s): 424484319 ICD Code: K86.1 - OTHER CHRONIC PANCREATITIS Status: Acute Current Visit: Yes (3) History of smoking SNOMED Code(s): 652830535 ICD Code: Z87.891 - PERSONAL HISTORY OF NICOTINE DEPENDENCE Status: Acute Current Visit: Yes (4) History of molar SNOMED Code(s): 57960002896689050 ICD Code: Z87.59 - PERSONAL HISTORY OF COMP OF PREG, CHLDBRTH AND THE PUERP Status: Acute Current Visit: Yes (5) History of recurrent miscarriages SNOMED Code(s): 645720475 ICD Code: N96 - RECURRENT LOSS Status: Acute Current Visit: Yes Problem List Initiated/Reviewed/Updated: Yes Orders Last 24hrs: Active Orders 24 hr Category Date Time Status Patient Status Manage Transfer [TRANSFER] Routine ADT 06/06/21 13:29 Active Patient Status [ADT] Routine ADT 06/06/21 04:09 Active Activity as Tolerated [RC] PFP Care 06/06/21 04:09 Active Communication Order [RC] ASDIRECTED Care 06/06/21 04:09 Active Communication Order [RC] ASDIRECTED Care 06/06/21 07:30 Active Heart Tones [RC] ASDIRECTED Care 06/06/21 04:10 Active Notify Provider [RC] ASDIRECTED Care 06/06/21 07:30 Active Notify Provider [RC] ASDIRECTED Care 06/06/21 07:30 Active Notify Provider [RC] PFP Care 06/06/21 04:09 Active Notify Provider [RC] PRN Care 06/06/21 04:09 Active Peripheral IV Care [RC] . DIRECTED Care 06/06/21 04:10 Active Urinary Catheter Assessment [RC] ASDIRECTED Care 06/06/21 04:09 Active Regular Diet [DIET] Diet 06/06/21 Breakfast Active RAPID PLASMA REAGIN,RPR [CHEM] Routine Lab 06/06/21 04:20 Received Bupivacaine/fentaNYL/NS [fentaNYL/Bupivacaine/NS 2 MCG- Med 06/06/21 07:29 Active 0.125% 100 ML] 100 ml EPIDUR ASDIRECTED PRN Clindamycin Phosphate in D5W [Cleocin in D5W 900 MG/50 Med 06/06/21 04:30 Active ML] 900 mg Premix Bag 1 bag IV Q8H Lactated Ringers [Ringers, Lactated] 1,000 ml Med 06/06/21 04:15 Active IV ASDIRECTED Nalbuphine [Nubain] Med 06/06/21 04:09 Active 10 mg IVPUSH Q2H PRN Oxytocin/Lactated Ringers [Pitocin in LR 10 Units/1,000 Med 06/06/21 04:15 Active ML] 10 unit in 1,000 ml IV TITRATE Sodium Chloride 0.9% [Saline Flush] Med 06/06/21 09:00 Active 10 ml FLUSH 0900,2100 diphenhydrAMINE [Benadryl] Med 06/06/21 07:29 Active 25 mg IVPUSH Q6H PRN ePHEDrine [ePHEDrine sulfate] Med 06/06/21 07:29 Active 5 mg IVPUSH ASDIRECTED PRN fentaNYL [Sublimaze] Med 06/06/21 07:29 Active 100 mcg EPIDUR Q3H PRN Electronic Heart Tones Ext w TOCO [WOMSER] Oth 06/06/21 04:09 Ordered Routine Electronic Heart Tones Internal [WOMSER] Per Unit Oth 06/06/21 04:09 Ordered Routine Peripheral IV Insertion Adult [OM.PC] Routine Oth 06/06/21 04:09 Ordered Resuscitation Status Routine Resus Stat 06/06/21 04:09 Ordered Medication Orders Diphenhydramine HCl (Diphenhydramine 50 Mg/Ml Sdv) 25 mg IVPUSH Q6H PRN PRN Reason: pruritis Ephedrine Sulfate (Ephedrine 50 Mg/Ml Sdv) 5 mg IVPUSH ASDIRECTED PRN PRN Reason: Hypotension Fentanyl (Fentanyl 100 Mcg/2 Ml Sdv) 100 mcg EPIDUR Q3H PRN PRN Reason: Pain Last Admin: 06/06/21 07:42 Dose: 100 mcg Documented by: IOANA Fentanyl/Bupivacaine HCl (Bupivacaine/Fentanyl/Ns 100 Ml Bag) 100 ml EPIDUR ASDIRECTED PRN PRN Reason: Pain Last Admin: 06/06/21 07:41 Dose: 100 ml Documented by: IOANA Clindamycin Phosphate 900 mg/ (Premix) 50 mls @ 100 mls/hr IV Q8H [facility] Last Admin: 06/06/21 12:48 Dose: 100 mls/hr Documented by: Infusion: 06/06/21 05:44 Dose: 100 mls/hr Documented by: Admin: 06/06/21 05:14 Dose: 100 mls/hr Documented by: MARIA D Oxytocin/Lactated Ringer's (Pitocin In Lr 10 Units/1,000 Ml) 10 unit in 1,000 mls @ 12 mls/hr IV TITRATE [facility]; Protocol Last Titration: 06/06/21 10:22 Dose: 20 munits/min, 120 mls/hr Documented by: Titration: 06/06/21 10:05 Dose: 18 munits/min, 108 mls/hr Documented by: Titration: 06/06/21 09:44 Dose: 16 munits/min, 96 mls/hr Documented by: Titration: 06/06/21 09:29 Dose: 14 munits/min, 84 mls/hr Documented by: Titration: 06/06/21 08:04 Dose: 12 munits/min, 72 mls/hr Documented by: Titration: 06/06/21 06:30 Dose: 10 munits/min, 60 mls/hr Documented by: MARIA D Titration: 06/06/21 06:00 Dose: 8 munits/min, 48 mls/hr Documented by: MARIA D Titration: 06/06/21 05:45 Dose: 6 munits/min, 36 mls/hr Documented by: MARIA D Titration: 06/06/21 05:31 Dose: 4 munits/min, 24 mls/hr Documented by: MARIA D Admin: 06/06/21 05:09 Dose: 2 munits/min, 12 mls/hr Documented by: MARIA D Lactated Ringer's (Ringers, Lactated) 1,000 mls @ 100 mls/hr IV ASDIRECTED [facility] Last Admin: 06/06/21 09:29 Dose: 100 mls/hr Documented by: Infusion: 06/06/21 09:29 Dose: 100 mls/hr Documented by: Admin: 06/06/21 07:41 Dose: 100 mls/hr Documented by: Infusion: 06/06/21 07:41 Dose: 100 mls/hr Documented by: Admin: 06/06/21 05:04 Dose: 100 mls/hr Documented by: MARIA D Nalbuphine HCl (Nalbuphine 10 Mg/1 Ml Vial) 10 mg IVPUSH Q2H PRN PRN Reason: Pain Sodium Chloride (Sodium Chloride 0.9% 10 Ml Syringe) 10 ml FLUSH 0900,2100 [facility] Last Admin: 06/06/21 12:15 Dose: Not Given Documented by: IOANA
--- NOTE | 2021-06-06 08:04 | PCM.PREANE ---
Preanesthetic Assessment - Procedure Proposed Procedure: epidural - Anesthesia/Transfusion/Family Hx Anesthesia History: Prior Anesthesia Without Reaction Family History of Anesthesia Reaction: No Transfusion History: No Prior Transfusion(s) - Review of Systems General: Fatigue Pulmonary: No Symptoms Cardiovascular: No Symptoms Gastrointestinal: Abdominal Pain (labor) Neurological: No Symptoms Other: Reports: None - Physical Assessment Vital Signs: Last Vital Signs Temp 36.9 C 06/06/21 03:45 Pulse 94 06/06/21 03:45 Resp 16 06/06/21 03:45 BP 114/62 06/06/21 03:45 Pulse Ox 99 06/06/21 03:45 Height: 1.7 m Weight: 85.865 kg ASA Class: 2 Mental Status: Alert & Oriented x3 Airway Class: Mallampati = 1 Dentition: Reports: Normal Dentition Thyro-Mental Finger Breadths: 3 Mouth Opening Finger Breadths: 3 ROM/Head Extension: Full Lungs: Clear to Auscultation, Normal Respiratory Effort Cardiovascular: Regular Rate, Regular Rhythm - Lab Values: Laboratory Last Values WBC 9.43 K/mm3 (3.98-10.04) 06/06/21 04:20 RBC 3.64 M/mm3 (3.98-5.22) L 06/06/21 04:20 Hgb 11.3 gm/dl (11.2-15.7) 06/06/21 04:20 Hct 34.3 % (34.1-44.9) 06/06/21 04:20 MCV 94.2 fl (79.4-94.8) 06/06/21 04:20 MCH 31.0 pg (25.6-32.2) 06/06/21 04:20 MCHC 32.9 g/dl (32.2-35.5) 06/06/21 04:20 RDW Std Deviation 44.9 fL (36.4-46.3) 06/06/21 04:20 Plt Count 160 K/mm3 (182-369) L 06/06/21 04:20 MPV 9.2 fl (9.4-12.3) L 06/06/21 04:20 Neut % (Auto) 59.8 % (34.0-71.1) 06/06/21 04:20 Lymph % (Auto) 31.4 % (19.3-51.7) 06/06/21 04:20 [place] % (Auto) 5.9 % (4.7-12.5) 06/06/21 04:20 Eos % (Auto) 1.2 (0.7-5.8) 06/06/21 04:20 Baso % (Auto) 0.3 % (0.1-1.2) 06/06/21 04:20 Neut # (Auto) 5.64 K/mm3 (1.56-6.13) 06/06/21 04:20 Lymph # (Auto) 2.96 K/mm3 (1.18-3.74) 06/06/21 04:20 [place] # (Auto) 0.56 K/mm3 (0.24-0.36) H 06/06/21 04:20 Eos # (Auto) 0.11 K/mm3 (0.04-0.36) 06/06/21 04:20 Baso # (Auto) 0.03 K/mm3 (0.01-0.08) 06/06/21 04:20 SARS-CoV-2 RNA (JUNI) Negative (NEGATIVE) 06/06/21 05:00 Blood Type O POSITIVE 06/06/21 04:20 Gel Antibody Screen Negative 06/06/21 04:20 - Allergies Allergies/Adverse Reactions: Allergies Allergy/AdvReac Type Severity Reaction Status Date / Time Latex, Natural Rubber Allergy Rash Verified 06/06/21 06:31 metronidazole [From Flagyl] Allergy Rash Verified 06/06/21 06:31 sulfamethoxazole Allergy Rash Verified 06/06/21 06:31 [From Bactrim] trimethoprim [From Bactrim] Allergy Rash Verified 06/06/21 06:31 amoxicillin trihydrate AdvReac Vomiting Verified 06/06/21 06:31 [From Augmentin] potassium clavulanate AdvReac Vomiting Verified 06/06/21 06:31 [From Augmentin] - Anesthesia Plan Pre-Op Medication Ordered: None - Acknowledgements Anesthesia Type Planned: Epidural Pt an Appropriate Candidate for the Planned Anesthesia: Yes Alternatives and Risks of Anesthesia Discussed w Pt/Guardian: Yes Pt/Guardian Understands and Agrees with Anesthesia Plan: Yes PreAnesthesia Questionnaire HEENT History: Reports: Impaired Vision Other HEENT History: Sinus surgery 2008 Cardiovascular History: Reports: None Respiratory History: Reports: Other (See Below) Other Respiratory History: former smoker x 9 years. had 5-6 cig aday. Currently attempting to quit. Smokes "some days" and usually only 2-3 cigarettes a day. Gastrointestinal History: Reports: GERD, Pancreatitis Other Gastrointestinal History: History of C-dff and fecal transplant 2014 Genitourinary History: Reports: None CHEMIST HELPER History: Reports: Spontaneous Other OB/BYN History: D&C x3 and molar Musculoskeletal History: Reports: Other (See Below) Neurological History: Reports: None Psychiatric History: Reports: Anxiety, Depression Other Psychiatric History: Hx of severe depression Endocrine/Metabolic History: Reports: None - Infectious Disease History Infectious Disease History: Reports: C-Difficile - Past Surgical History Head Surgeries/Procedures: Reports: Other (See Below) HEENT Surgical History: Reports: Naso-Sinus Surgery, Oral Surgery Other HEENT Surgeries/Procedures: wisdom teeth removal 2004 Respiratory Surgical History: Reports: None GI Surgical History: Reports: Abdominal paracentesis, Cholecystectomy, ERCP Other GI Surgeries/Procedures: chronic pancreatic problems, stents in and stent out several times. Female Surgical History: Reports: D&C Other Musculoskeletal Surgeries/Procedures:: hammertoe correction rt foot 2nd toe. - SUBSTANCE USE Tobacco Use Status *Q: Current Some Day Tobacco User Tobacco Use Within Last Twelve Months: Cigarettes Second Hand Smoke Exposure: No Recreational Drug Use History: No - HOME MEDS Home Medications: Home Meds #103/Iron Fumarate/Fa [ ] 1 tab PO DAILY 04/29/18 [History] Calcium Carbonate [Calcium] 500 mg PO DAILY 04/08/19 [History] L.acidoph,Paracasei, B.lactis [Probiotic] 1 cap PO DAILY 04/08/19 [History] [place]-3/DHA/Epa/Fish Oil [Fish Oil 500 MG Softgel] 1,000 mg PO DAILY 04/08/19 [History] Ascorbate Calcium [Vitamin C] 500 mg PO DAILY 09/05/20 [History] - CURRENT (IN HOUSE) MEDS Current Meds: Current Medications Diphenhydramine HCl (Diphenhydramine 50 Mg/Ml Sdv) 25 mg IVPUSH Q6H PRN PRN Reason: pruritis Ephedrine Sulfate (Ephedrine 50 Mg/Ml Sdv) 5 mg IVPUSH ASDIRECTED PRN PRN Reason: Hypotension Fentanyl (Fentanyl 100 Mcg/2 Ml Sdv) 100 mcg EPIDUR Q3H PRN PRN Reason: Pain Last Admin: 06/06/21 07:42 Dose: 100 mcg Documented by: Fentanyl/Bupivacaine HCl (Bupivacaine/Fentanyl/Ns 100 Ml Bag) 100 ml EPIDUR ASDIRECTED PRN PRN Reason: Pain Last Admin: 06/06/21 07:41 Dose: 100 ml Documented by: Clindamycin Phosphate 900 mg/ (Premix) 50 mls @ 100 mls/hr IV Q8H [facility] Last Admin: 06/06/21 05:14 Dose: 100 mls/hr Documented by: Oxytocin/Lactated Ringer's (Pitocin In Lr 10 Units/1,000 Ml) 10 unit in 1,000 mls @ 12 mls/hr IV TITRATE KATTY; Protocol Last Titration: 06/06/21 06:30 Dose: 10 munits/min, 60 mls/hr Documented by: Lactated Ringer's (Ringers, Lactated) 1,000 mls @ 100 mls/hr IV ASDIRECTED KATTY Last Admin: 06/06/21 07:41 Dose: 100 mls/hr Documented by: Nalbuphine HCl (Nalbuphine 10 Mg/1 Ml Vial) 10 mg IVPUSH Q2H PRN PRN Reason: Pain Sodium Chloride (Sodium Chloride 0.9% 10 Ml Syringe) 10 ml FLUSH 0900,2100 [facility]
[2021-06-06] MEDS ORDERED: Sodium Chloride 0.9% 10 ML Syringe FLUSH SCH (09:00)
[2021-06-06] MEDS ORDERED: Bupivacaine 0.25% 10 ML SDV ONE (12:00)
--- NOTE | 2021-06-06 13:39 | PCM.SN.2 ---
- Free Text/Narrative Note: Delivery note: Stage I: Marita is a 30 year-old 7 now para 4 -0-3-4 female presently 39 weeks gestational age with an ELENA of 06/13/21 admitted for elective induction of labor. On cervical exam, she was 2+ cm dilated, 60% effaced, -5 station, midposition, soft, cephalic presentation. Labor group B strep prophylaxis was with clindamycin as patient had an allergy to Augmentin. She is started on Pitocin and advanced to produce a good labor pattern. She slowly progressed to 4+ centimeters by approximately 1130 hrs. on 06/06/2021. At that time artificial rupture membranes was undertaken with resultant clear amniotic fluid. Patient was monitored near continuously with electronic monitoring which revealed reassuring heart tones and a labor pattern which was adequate. She had an epidural placed for labor analgesia with very good results. Stage II: Patient came completely dilated at approximately 1255 hrs. At 1306 hrs. on 06/06/2021 Marita delivered a viable, rae, female with Apgars 8 and 9, a weight of 3230 g (7 pounds 2 ounces), a length of 20 inches in a direct occiput anterior position. Shoulders were delivered with gentle downward and upward traction. The baby was then placed on mom's abdomen. The umbilical cord is allowed to pulsate for approximately 3-4 minutes. Pitocin was increased to 500 cc an hour to increase uterine tone and reduce risk of uterine bleeding. Umbilical cord was then clamped x2 and cut by the baby's father. The cord was three-vessel. Cord blood was obtained. A small superficial perineal laceration was closed with 3-0 Monocryl sutures in 3 interrupted stitches. Suture placement anesthesia was epidural analgesia with good results. Patient tolerated this very well. Stage III: The placenta delivered in a Brenner presentation at 1313 hrs. it appeared intact and complete and was discarded per patient desire. Estimated blood loss was 300 cc. Patient plans to breast-feed. Condition: Good.
[2021-06-06] MEDS ORDERED: Acetaminophen 325 MG Tab PO PRN (14:07)
[2021-06-06] MEDS ORDERED: Witch Hazel Medicated Pads 40/Jar TOP PRN (14:07)
[2021-06-06] MEDS ORDERED: Benzocaine/Menthol 20%-0.5% Spray 78 GM Cannister TOP PRN (14:07)
[2021-06-06] MEDS: Sertraline 50 MG Tab PO SCH (15:09)
[2021-06-06] MEDS: Docusate Sodium 100 MG Cap PO PRN (15:09)
[2021-06-06] MEDS: Ibuprofen 600 MG Tab PO PRN (20:58)
[2021-06-07] MEDS: Ibuprofen 600 MG Tab PO PRN ×4 (01:26→14:36)
--- NOTE | 2021-06-07 04:48 | PCM.PNPP ---
- General Info Date of Service: 06/07/21 Functional Status: Reports: Pain Controlled, Tolerating Diet, Ambulating, Urinating - Review of Systems General: Reports: No Symptoms Pulmonary: Reports: No Symptoms Cardiovascular: Reports: No Symptoms Gastrointestinal: Reports: No Symptoms Genitourinary: Reports: No Symptoms Musculoskeletal: Reports: No Symptoms Neurological: Reports: No Symptoms - General Info Date of Service: 06/07/21 - Patient Data Vital Signs - Most Recent: Last Vital Signs Temp 36.9 C 06/06/21 20:48 Pulse 66 06/06/21 20:48 Resp 14 06/06/21 20:48 BP 95/58 L 06/06/21 20:48 Pulse Ox 99 06/06/21 20:48 Weight - Most Recent: 85.865 kg I&O - Last 24 Hours: Intake & Output 06/06/21 06/06/21 06/07/21 14:59 22:59 06:59 Intake Total 4175 850 Output Total 2225 640 Balance 1950 210 Lab Results - Last 24 Hours: Laboratory Results - last 24 hr 06/06/21 06/06/21 06/06/21 Range/Units 04:20 04:20 05:00 RPR Non-reactive (NONREACTIVE) SARS-CoV-2 RNA (JUNI) Negative (NEGATIVE) Blood Type O POSITIVE Gel Antibody Screen Negative Med Orders - Current: Current Medications Acetaminophen (Acetaminophen 325 Mg Tab) 650 mg PO Q4H PRN PRN Reason: mild pain or fever Benzocaine/Menthol (Benzocaine/Menthol 20%-0.5% [place] 78 Gm Cannister) 0 gm TOP ASDIRECTED PRN PRN Reason: Perineal Comfort Measure Last Admin: 06/06/21 15:10 Dose: 1 can Documented by: Docusate Sodium (Docusate Sodium 100 Mg Cap) 100 mg PO BID PRN PRN Reason: Constipation Last Admin: 06/06/21 15:09 Dose: 100 mg Documented by: Ibuprofen (Ibuprofen 600 Mg Tab) 600 mg PO Q4H PRN PRN Reason: Mild pain or fever Last Admin: 06/07/21 01:26 Dose: 600 mg Documented by: Prenat Multivit/[place]/Iron/Folic Ac ( Multivitamin With Calcium/Folic Acid/Iron Tab) 1 each PO DAILY [facility] Sertraline HCl (Sertraline 50 Mg Tab) 50 mg PO DAILY [facility] Last Admin: 06/06/21 15:09 Dose: 50 mg Documented by: Celine Estes (Celine Estes Medicated Pads 40/Jar) 1 pad TOP ASDIRECTED PRN PRN Reason: Perineal Comfort Measure Last Admin: 06/06/21 15:10 Dose: 1 tub Documented by: Discontinued Medications Bupivacaine HCl (Bupivacaine 0.25% 10 Ml Sdv) 10 ml .ROUTE .STK-MED ONE Stop: 06/06/21 12:01 Diphenhydramine HCl (Diphenhydramine 50 Mg/Ml Sdv) 25 mg IVPUSH Q6H PRN PRN Reason: pruritis Ephedrine Sulfate (Ephedrine 50 Mg/Ml Sdv) 5 mg IVPUSH ASDIRECTED PRN PRN Reason: Hypotension Fentanyl (Fentanyl 100 Mcg/2 Ml Sdv) 100 mcg EPIDUR Q3H PRN PRN Reason: Pain Last Admin: 06/06/21 07:42 Dose: 100 mcg Documented by: Fentanyl/Bupivacaine HCl (Bupivacaine/Fentanyl/Ns 100 Ml Bag) 100 ml EPIDUR ASDIRECTED PRN PRN Reason: Pain Last Admin: 06/06/21 07:41 Dose: 100 ml Documented by: Clindamycin Phosphate 900 mg/ (Premix) 50 mls @ 100 mls/hr IV Q8H [facility] Last Admin: 06/06/21 12:48 Dose: 100 mls/hr Documented by: Oxytocin/Lactated Ringer's (Pitocin In Lr 10 Units/1,000 Ml) 10 unit in 1,000 mls @ 12 mls/hr IV TITRATE [facility]; Protocol Last Admin: 06/06/21 13:34 Dose: 166.5 munits/min, 999 mls/hr Documented by: Lactated Ringer's (Ringers, Lactated) 1,000 mls @ 100 mls/hr IV ASDIRECTED [facility] Last Admin: 06/06/21 09:29 Dose: 100 mls/hr Documented by: Nalbuphine HCl (Nalbuphine 10 Mg/1 Ml Vial) 10 mg IVPUSH Q2H PRN PRN Reason: Pain Sodium Chloride (Sodium Chloride 0.9% 10 Ml Syringe) 10 ml FLUSH 0900,2100 [facility] Last Admin: 06/06/21 12:15 Dose: Not Given Documented by: - Interaction Infant Disposition, : in Room with Family Interaction: Holding Infant Infant Feeding: Bottle Fed Support Person: - Recovery Exam Fundal Tone: Firm Fundal Level: At Umbilicus Fundal Placement: Midline Lochia Amount: Scant, Small Lochia Color: Rubra/Red Perineum Description: Intact, Minimal Bruising/Swelling Episiotomy/Laceration: None Bladder Status: Nonpalpable, Voiding Urinary Elimination: Voided - Exam General: Alert, Oriented, Cooperative GI/Abdominal Exam: Soft, Non-Tender - Problem List & Annotations (1) Vaginal delivery SNOMED Code(s): 142580369 Code(s): O80 - ENCOUNTER FOR FULL-TERM UNCOMPLICATED DELIVERY Status: Acute Current Visit: Yes (2) 39 weeks gestation of SNOMED Code(s): 98396001 Code(s): Z3A.39 - 39 WEEKS GESTATION OF Status: Acute Current Visit: Yes (3) Elective induction of labor planned SNOMED Code(s): 359197486 Code(s): TMD5829 - Status: Acute Current Visit: Yes - Problem List Review Problem List Initiated/Reviewed/Updated: Yes - My Orders Last 24 Hours: My Active Orders 06/07/21 04:48 Ready for Discharge [RC] PER UNIT ROUTINE - Assessment Assessment:: PPD#1 - Plan Plan:: Routine cares Bottle feeding Discharge today
--- NOTE | 2021-06-07 04:49 | PCM.DCSUM1 ---
Discharge Summary - Discharge Data Discharge Date: 06/07/21 Discharge Disposition: Home, Self-Care 01 Condition: Good - Referral to Home Health Primary Care Physician: PCP None - Patient Summary/Data Complications: None Consults: None Recommended Follow-up Testing/Procedures: Follow up in 3 weeks Hospital Course: 30 y/o presented for elective IOL at 39 weeks. Done with pitocin and AROM. Progressed well. Underwent an uncomplicated . See delivery note. was discharged on PPD#1 - Patient Instructions Diet: Regular Diet as Tolerated Activity: As Tolerated Activity, Other: Pelvic rest for 6 weeks Driving: May Drive Today Showering/Bathing: May Shower Showering/Bathing, Other: May Bathe Notify Provider of: Fever, Increased Pain, Swelling and Redness, Drainage, Nausea and/or Vomiting - Discharge Plan *PRESCRIPTION DRUG MONITORING PROGRAM REVIEWED*: No *COPY OF PRESCRIPTION DRUG MONITORING REPORT IN PATIENT LUCIEN: No Home Medications: Home Meds #103/Iron Fumarate/Fa [ ] 1 tab PO DAILY 04/29/18 [History] Calcium Carbonate [Calcium] 500 mg PO DAILY 04/08/19 [History] L.acidoph,Paracasei, B.lactis [Probiotic] 1 cap PO DAILY 04/08/19 [History] [place]-3/DHA/Epa/Fish Oil [Fish Oil 500 MG Softgel] 1,000 mg PO DAILY 04/08/19 [History] Ascorbate Calcium [Vitamin C] 500 mg PO DAILY 09/05/20 [History] Lansoprazole [Prevacid] 1 cap PO DAILY 06/06/21 [History] Acetaminophen [Tylenol] 650 mg PO Q4H PRN tablet 06/07/21 [Rx] Docusate Sodium [Colace] 100 mg PO BID PRN cap 06/07/21 [Rx] Ibuprofen [Motrin] 600 mg PO Q4H PRN tablet 06/07/21 [Rx] Sertraline [Zoloft] 50 mg PO DAILY tablet 06/07/21 [Rx] Patient Handouts: Steps to Quit Smoking Referrals: Bin Zamora MD [Physician] - (3 weeks for check ) - Discharge Summary/Plan Comment DC Time >30 min.: No Total # of Minutes for Discharge Time: 15 - Patient Data Vitals - Most Recent: Last Vital Signs Temp 36.9 C 06/06/21 20:48 Pulse 66 06/06/21 20:48 Resp 14 06/06/21 20:48 BP 95/58 L 06/06/21 20:48 Pulse Ox 99 06/06/21 20:48 Weight - Most Recent: 85.865 kg I&O - Last 24 hours: Intake & Output 06/06/21 06/06/21 06/07/21 14:59 22:59 06:59 Intake Total 4175 850 Output Total 2225 640 Balance 1950 210 Lab Results - Last 24 hrs: Laboratory Results - last 24 hr 06/06/21 06/06/21 06/06/21 Range/Units 04:20 04:20 05:00 RPR Non-reactive (NONREACTIVE) SARS-CoV-2 RNA (JUNI) Negative (NEGATIVE) Blood Type O POSITIVE Gel Antibody Screen Negative Med Orders - Current: Current Medications Acetaminophen (Acetaminophen 325 Mg Tab) 650 mg PO Q4H PRN PRN Reason: mild pain or fever Benzocaine/Menthol (Benzocaine/Menthol 20%-0.5% [place] 78 Gm Cannister) 0 gm TOP ASDIRECTED PRN PRN Reason: Perineal Comfort Measure Last Admin: 06/06/21 15:10 Dose: 1 can Documented by: Docusate Sodium (Docusate Sodium 100 Mg Cap) 100 mg PO BID PRN PRN Reason: Constipation Last Admin: 06/06/21 15:09 Dose: 100 mg Documented by: Ibuprofen (Ibuprofen 600 Mg Tab) 600 mg PO Q4H PRN PRN Reason: Mild pain or fever Last Admin: 06/07/21 01:26 Dose: 600 mg Documented by: Prenat Multivit/[employer]/Iron/Folic Ac ( Multivitamin With Calcium/Folic Acid/Iron Tab) 1 each PO DAILY [facility] Sertraline HCl (Sertraline 50 Mg Tab) 50 mg PO DAILY [facility] Last Admin: 06/06/21 15:09 Dose: 50 mg Documented by: Celine Estes (Celine Estes Medicated Pads 40/Jar) 1 pad TOP ASDIRECTED PRN PRN Reason: Perineal Comfort Measure Last Admin: 06/06/21 15:10 Dose: 1 tub Documented by: Discontinued Medications Bupivacaine HCl (Bupivacaine 0.25% 10 Ml Sdv) 10 ml .ROUTE .STK-MED ONE Stop: 06/06/21 12:01 Diphenhydramine HCl (Diphenhydramine 50 Mg/Ml Sdv) 25 mg IVPUSH Q6H PRN PRN Reason: pruritis Ephedrine Sulfate (Ephedrine 50 Mg/Ml Sdv) 5 mg IVPUSH ASDIRECTED PRN PRN Reason: Hypotension Fentanyl (Fentanyl 100 Mcg/2 Ml Sdv) 100 mcg EPIDUR Q3H PRN PRN Reason: Pain Last Admin: 06/06/21 07:42 Dose: 100 mcg Documented by: Fentanyl/Bupivacaine HCl (Bupivacaine/Fentanyl/Ns 100 Ml Bag) 100 ml EPIDUR ASDIRECTED PRN PRN Reason: Pain Last Admin: 06/06/21 07:41 Dose: 100 ml Documented by: Clindamycin Phosphate 900 mg/ (Premix) 50 mls @ 100 mls/hr IV Q8H [facility] Last Admin: 06/06/21 12:48 Dose: 100 mls/hr Documented by: Oxytocin/Lactated Ringer's (Pitocin In Lr 10 Units/1,000 Ml) 10 unit in 1,000 mls @ 12 mls/hr IV TITRATE [facility]; Protocol Last Admin: 06/06/21 13:34 Dose: 166.5 munits/min, 999 mls/hr Documented by: Lactated Ringer's (Ringers, Lactated) 1,000 mls @ 100 mls/hr IV ASDIRECTED [facility] Last Admin: 06/06/21 09:29 Dose: 100 mls/hr Documented by: Nalbuphine HCl (Nalbuphine 10 Mg/1 Ml Vial) 10 mg IVPUSH Q2H PRN PRN Reason: Pain Sodium Chloride (Sodium Chloride 0.9% 10 Ml Syringe) 10 ml FLUSH 0900,2100 [facility] Last Admin: 06/06/21 12:15 Dose: Not Given Documented by:
[2021-06-07] MEDS: Docusate Sodium 100 MG Cap PO PRN (08:03)
[2021-06-07] MEDS: Sertraline 50 MG Tab PO SCH (08:28)
[2021-06-07] MEDS ORDERED: Prenatal Multivitamin with Calcium/Folic Acid/Iron Tab PO SCH (09:00)
--- NOTE | 2021-06-07 14:27 | PCM48HPAN ---
Post Anesthesia Note - EVALUATION WITHIN 48HRS OF ANESTHETIC Vital Signs in Normal Range: Yes Patient Participated in Evaluation: Yes Respiratory Function Stable: Yes Airway Patent: Yes Cardiovascular Function Stable: Yes Hydration Status Stable: Yes Pain Control Satisfactory: Yes Nausea and Vomiting Control Satisfactory: Yes Mental Status Recovered: Yes Vital Signs: Last Vital Signs Temp 97.9 F 06/07/21 08:05 Pulse 64 06/07/21 08:05 Resp 16 06/07/21 08:05 BP 114/78 06/07/21 08:05 Pulse Ox 98 06/07/21 08:05 - COMMENTS/OBSERVATIONS Free Text/Narrative:: No apparent anesthesia complications noted
[2021-06-07 15:49] VITALS: BP 118/75; PULSE 74
== END 2021-06-07 16:15 | disposition home or self-care (01) | DRG 560 ==
LOC: JD.OBCHECK 03:18 → JD.OB 03:37 → OBSVTOIN 13:06 → JD.OB 13:07
PROVIDERS: ADMIT Obstetrics & Gynecology; ATTEND Obstetrics & Gynecology
PROC: 10E0XZZ Delivery of Products of Conception, External Approach (ICD-10-PCS; principal; 2021-06-06)
PROC: 10907ZC Drainage of Amniotic Fluid, Therapeutic from Products of Conception, Via Natural or Artificial Opening (ICD-10-PCS; 2021-06-06)
PROC: 3E033VJ Introduction of Other Hormone into Peripheral Vein, Percutaneous Approach (ICD-10-PCS; 2021-06-06)
PROC: 0HQ9XZZ Repair Perineum Skin, External Approach (ICD-10-PCS; 2021-06-06)
PROC: 3E0R3BZ Introduction of Anesthetic Agent into Spinal Canal, Percutaneous Approach (ICD-10-PCS; 2021-06-06)
PROC: 00HU33Z Insertion of Infusion Device into Spinal Canal, Percutaneous Approach (ICD-10-PCS; 2021-06-06)
DX: O99.62 Diseases of the digestive system complicating childbirth (principal); K21.9 Gastro-esophageal reflux disease without esophagitis; Z37.0 Single live birth; K86.1 Other chronic pancreatitis; O70.0 First degree perineal laceration during delivery; Z20.822 Contact with and (suspected) exposure to COVID-19; Z87.891 Personal history of nicotine dependence; Z91.040 Latex allergy status; Z88.0 Allergy status to penicillin; Z88.2 Allergy status to sulfonamides
CPT/HCPCS: 01967; 36415; 51702; 59025; 59409; 85025; 86592; 86850; 86900; 86901; A9270-GY; J2590; J3010; J3490; J7120; U0002

== ENCOUNTER 2022-11-19 16:50 | Emergency (ER) | payer BC ==
[2022-11-19] MEDS ORDERED: HYDROmorphone 1 MG/ML Syringe IM ONE (17:21)
[2022-11-19] MEDS ORDERED: Ketorolac 60 MG/2 ML SDV IM ONE (17:21)
[2022-11-19] MEDS ORDERED: Ondansetron 4 MG Tab.DIS PO ONE (17:21)
[2022-11-19 19:08] VITALS: BP 103/47; PULSE 64
== END 2022-11-19 19:05 | disposition home or self-care (01) ==
LOC: JD.ED 16:50
DX: K86.1 Other chronic pancreatitis (principal); F17.210 Nicotine dependence, cigarettes, uncomplicated; Z86.16 Personal history of COVID-19; Z79.899 Other long term (current) drug therapy; Z91.040 Latex allergy status; Z88.2 Allergy status to sulfonamides; Z88.0 Allergy status to penicillin; Z88.1 Allergy status to other antibiotic agents
CPT/HCPCS: 96372; 99283; A9270; J1170; J1885

== ENCOUNTER 2023-02-18 18:59 | Emergency (ER) | payer BC ==
[2023-02-18] MEDS ORDERED: Sodium Chloride 0.9% 10 ML Syringe FLUSH PRN (19:20)
[2023-02-18] MEDS ORDERED: Sodium Chloride 0.9% 1,000 ML IV STA (19:41)
[2023-02-18] MEDS ORDERED: HYDROmorphone 0.5 MG/0.5 ML Syringe IVPUSH ONE (19:41)
[2023-02-18] MEDS ORDERED: Ondansetron 4 MG/2 ML SDV IVPUSH ONE (19:41)
[2023-02-18 20:00] LABS: BASOPHILS ABSOLUTE AUTO 0.1 K/mm3 (0.0-0.2); BASOPHILS PERCENT AUTO 1.4 % (0.0-1.0); EOSINOPHILS ABSOLUTE AUTO 0.2 K/mm3 (0.0-0.4); EOSINOPHILS PERCENT AUTO 2.1 % (0.0-6.0); HEMATOCRIT 40.3 % (37.0-47.0); HEMOGLOBIN 13.2 gm/dl (12.0-16.0); IMMATURE GRAN ABSOLUTE AUTO 0.02 K/mm3 (0.00-0.05); IMMATURE GRAN PERCENT AUTO 0.3 % (0.0-0.4); LYMPHOCYTES ABSOLUTE AUTO 3.7 K/mm3 (1.0-4.8); LYMPHOCYTES PERCENT AUTO 48.1 % (24.0-44.0); MEAN CORPUSCULAR HGB CONC 32.8 g/dl (32.0-36.0); MEAN CORPUSCULAR VOLUME 88.6 fl (83.0-99.0); MEAN PLATELET VOLUME 9.1 fl (9.4-12.3); MONOCYTES ABSOLUTE AUTO 0.4 K/mm3 (0.0-0.8); NEUTROPHILS ABSOLUTE AUTO 3.3 K/mm3 (1.8-7.7); NEUTROPHILS PERCENT AUTO 43.1 % (41.0-71.0); PLATELET COUNT,PLT 204 K/mm3 (150-400); RED BLOOD CELL COUNT 4.55 M/mm3 (4.10-5.30); WHITE BLOOD CELL COUNT,WBC 7.59 K/mm3 (3.9-11.3)
[2023-02-18 20:22] LABS: APPEARANCE,URINE CLEAR (Clear); BILIRUBIN,URINE NEGATIVE (Negative); COLOR,URINE LIGHT YELLOW (Yellow); GLUCOSE,URINE NEGATIVE (Negative); KETONES,URINE 1+ (Negative); LEUKOCYTE ESTERASE,URINE NEGATIVE (Negative); NITRITE,URINE NEGATIVE (Negative); OCCULT BLOOD,URINE NEGATIVE (Negative); PH,URINE 6.5 (5.0-8.0); PROTEIN,URINE NEGATIVE (Negative); UROBILINOGEN,URINE 0.2 (0.2-1.0)
[2023-02-18 20:25] LABS: A/G RATIO 1.4 (1-2); ALANINE AMINOTRANSFERASE,ALT 22 U/L (14-59); ALBUMIN 4.4 g/dl (3.4-5.0); ALKALINE PHOSPHATASE 75 U/L (46-116); ANION GAP 12.9 (5-15); ASPARTATE AMNIOTRANSFERASE,AST 10 U/L (15-37); BILIRUBIN TOTAL 0.5 mg/dL (0.2-1.0); BLOOD UREA NITROGEN,BUN 9 mg/dL (7-18); BUN/CREATININE RATIO 11.3 (14-18); C-REACTIVE PROTEIN <0.2 mg/dL (<1.0); CALCIUM 8.9 mg/dL (8.5-10.1); CARBON DIOXIDE,CO2 27 mEq/L (21-32); CHLORIDE,CL 104 mEq/L (98-107); CREATININE 0.8 mg/dL (0.55-1.02); EST CRCL DRUG DOSING (CG) 93.66 mL/min; ESTIMATED GFR 99 mL/min (>60); GLUCOSE RANDOM 84 mg/dL (70-99); LIPASE 360 U/L (73-393); POTASSIUM,K 3.9 mEq/L (3.5-5.1); PROTEIN TOTAL,TP 7.6 g/dl (6.4-8.2); SODIUM,NA 140 mEq/L (136-145)
[2023-02-18] MEDS ORDERED: Ketorolac 30 MG/ML SDV IVPUSH ONE (20:40)
[2023-02-18 21:06] VITALS: BP 112/72; PULSE 80
== END 2023-02-18 21:00 | disposition home or self-care (01) ==
LOC: JD.ED 18:59
DX: R10.12 Left upper quadrant pain (principal); K21.9 Gastro-esophageal reflux disease without esophagitis; Z91.040 Latex allergy status; Z88.1 Allergy status to other antibiotic agents; Z88.0 Allergy status to penicillin; Z79.899 Other long term (current) drug therapy; Z86.16 Personal history of COVID-19
CPT/HCPCS: 36415; 80053; 81003; 83690; 84703; 85025; 86140; 96361; 96374; 96375; 99284; J1170; J1885; J2405; J3490; J7030

== ENCOUNTER 2023-05-07 18:44 | Emergency (ER) | payer BC ==
[2023-05-07] MEDS ORDERED: Sodium Chloride 0.9% 1,000 ML IV STA (19:20)
[2023-05-07] MEDS ORDERED: Ondansetron 4 MG/2 ML SDV IVPUSH ONE (19:22)
[2023-05-07] MEDS ORDERED: HYDROmorphone 0.5 MG/0.5 ML Syringe IVPUSH ONE ×2 (19:23→20:54)
[2023-05-07] MEDS ORDERED: Iopamidol 612 MG/ML 100 ML Bottle IVPUSH ONE (19:35)
[2023-05-07] MEDS: Sodium Chloride 0.9% 10 ML Syringe FLUSH PRN ×2 (19:42→20:58)
[2023-05-07 19:43] LABS: BASOPHILS ABSOLUTE AUTO 0.1 K/mm3 (0.0-0.2); BASOPHILS PERCENT AUTO 1.1 % (0.0-1.0); EOSINOPHILS ABSOLUTE AUTO 0.1 K/mm3 (0.0-0.4); EOSINOPHILS PERCENT AUTO 1.6 % (0.0-6.0); HEMATOCRIT 43.1 % (37.0-47.0); HEMOGLOBIN 14.4 gm/dl (12.0-16.0); IMMATURE GRAN ABSOLUTE AUTO 0.01 K/mm3 (0.00-0.05); IMMATURE GRAN PERCENT AUTO 0.2 % (0.0-0.4); LYMPHOCYTES ABSOLUTE AUTO 2.3 K/mm3 (1.0-4.8); LYMPHOCYTES PERCENT AUTO 41.7 % (24.0-44.0); MEAN CORPUSCULAR HEMOGLOBIN 30.1 pg (28.0-32.0); MEAN CORPUSCULAR HGB CONC 33.4 g/dl (32.0-36.0); MEAN PLATELET VOLUME 9.1 fl (9.4-12.3); MONOCYTES ABSOLUTE AUTO 0.6 K/mm3 (0.0-0.8); MONOCYTES PERCENT AUTO 10.3 % (0.0-8.0); NEUTROPHILS ABSOLUTE AUTO 2.5 K/mm3 (1.8-7.7); NEUTROPHILS PERCENT AUTO 45.1 % (41.0-71.0); PLATELET COUNT,PLT 230 K/mm3 (150-400); RED BLOOD CELL COUNT 4.79 M/mm3 (4.10-5.30); WHITE BLOOD CELL COUNT,WBC 5.56 K/mm3 (3.9-11.3)
[2023-05-07] MEDS ORDERED: Sodium Chloride 0.9% 10 ML Syringe FLUSH SCH (19:45)
[2023-05-07 19:47] LABS: APPEARANCE,URINE CLEAR (Clear); BILIRUBIN,URINE NEGATIVE (Negative); COLOR,URINE LIGHT YELLOW (Yellow); GLUCOSE,URINE NEGATIVE (Negative); KETONES,URINE NEGATIVE (Negative); LEUKOCYTE ESTERASE,URINE NEGATIVE (Negative); NITRITE,URINE NEGATIVE (Negative); OCCULT BLOOD,URINE NEGATIVE (Negative); PH,URINE 6.5 (5.0-8.0); PROTEIN,URINE NEGATIVE (Negative); UROBILINOGEN,URINE 0.2 (0.2-1.0)
[2023-05-07 19:52] LABS: BACTERIA,URINE FEW /hpf (FEW); MUCUS,URINE FEW /hpf (FEW); RBC,URINE 0-5 /hpf (0-5); SQUAMOUS EPITHELIAL CELLS,UR 0-5 /hpf (0-5); WBC,URINE 0-5 /hpf (0-5)
[2023-05-07 20:05] LABS: A/G RATIO 1.2 (1-2); ALBUMIN 4.4 g/dl (3.4-5.0); ANION GAP 11.9 (5-15); BILIRUBIN TOTAL 0.2 mg/dL (0.2-1.0); BUN/CREATININE RATIO 17.5 (14-18); CALCIUM 9.3 mg/dL (8.5-10.1); CREATININE 0.8 mg/dL (0.55-1.02); EST CRCL DRUG DOSING (CG) 92.81 mL/min; POTASSIUM,K 3.9 mEq/L (3.5-5.1); PROTEIN TOTAL,TP 8.1 g/dl (6.4-8.2)
[2023-05-07 21:54] VITALS: BP 95/61; PULSE 60
== END 2023-05-07 21:54 | disposition home or self-care (01) ==
LOC: JD.ED 18:44
DX: K52.9 Noninfective gastroenteritis and colitis, unspecified (principal); K85.90 Acute pancreatitis without necrosis or infection, unspecified; K21.9 Gastro-esophageal reflux disease without esophagitis; F17.210 Nicotine dependence, cigarettes, uncomplicated; Z86.16 Personal history of COVID-19; Z91.040 Latex allergy status; Z88.2 Allergy status to sulfonamides; Z88.0 Allergy status to penicillin; Z88.1 Allergy status to other antibiotic agents; Z79.899 Other long term (current) drug therapy
CPT/HCPCS: 36415; 74177; 80053; 81001; 83690; 84703; 85025; 96361; 96374; 96375; 96376; 99284; J1170; J2405; J3490; J7030; Q9967

== ENCOUNTER 2023-11-05 19:54 | Emergency (ER) | payer BC ==
[2023-11-05 20:30] VITALS: PULSE 77
[2023-11-05 20:36] LABS: BASOPHILS ABSOLUTE AUTO 0.1 K/mm3 (0.0-0.2); EOSINOPHILS ABSOLUTE AUTO 0.2 K/mm3 (0.0-0.4); EOSINOPHILS PERCENT AUTO 2.4 % (0.0-6.0); HEMATOCRIT 38.1 % (37.0-47.0); HEMOGLOBIN 12.7 gm/dl (12.0-16.0); IMMATURE GRAN ABSOLUTE AUTO 0.01 K/mm3 (0.00-0.05); IMMATURE GRAN PERCENT AUTO 0.1 % (0.0-0.4); LYMPHOCYTES ABSOLUTE AUTO 3.7 K/mm3 (1.0-4.8); LYMPHOCYTES PERCENT AUTO 54.3 % (24.0-44.0); MEAN CORPUSCULAR HEMOGLOBIN 29.5 pg (28.0-32.0); MEAN CORPUSCULAR HGB CONC 33.3 g/dl (32.0-36.0); MEAN CORPUSCULAR VOLUME 88.6 fl (83.0-99.0); MEAN PLATELET VOLUME 9.2 fl (9.4-12.3); MONOCYTES ABSOLUTE AUTO 0.4 K/mm3 (0.0-0.8); MONOCYTES PERCENT AUTO 5.9 % (0.0-8.0); NEUTROPHILS ABSOLUTE AUTO 2.4 K/mm3 (1.8-7.7); NEUTROPHILS PERCENT AUTO 36.3 % (41.0-71.0); PLATELET COUNT,PLT 206 K/mm3 (150-400); WHITE BLOOD CELL COUNT,WBC 6.74 K/mm3 (3.9-11.3)
[2023-11-05 20:43] LABS: APPEARANCE,URINE CLEAR (Clear); BILIRUBIN,URINE NEGATIVE (Negative); COLOR,URINE LIGHT YELLOW (Yellow); GLUCOSE,URINE NEGATIVE (Negative); KETONES,URINE NEGATIVE (Negative); LEUKOCYTE ESTERASE,URINE TRACE (Negative); NITRITE,URINE NEGATIVE (Negative); OCCULT BLOOD,URINE NEGATIVE (Negative); PH,URINE 6.5 (5.0-8.0); PROTEIN,URINE NEGATIVE (Negative); UROBILINOGEN,URINE 0.2 (0.2-1.0)
[2023-11-05 20:50] LABS: A/G RATIO 1.2 (1-2); ALANINE AMINOTRANSFERASE,ALT 27 U/L (14-59); ALBUMIN 4.1 g/dl (3.4-5.0); ALKALINE PHOSPHATASE 74 U/L (46-116); ANION GAP 13.6 (5-15); ASPARTATE AMNIOTRANSFERASE,AST 14 U/L (15-37); BILIRUBIN TOTAL 0.3 mg/dL (0.2-1.0); BLOOD UREA NITROGEN,BUN 14 mg/dL (7-18); BUN/CREATININE RATIO 17.5 (14-18); CARBON DIOXIDE,CO2 25 mEq/L (21-32); CHLORIDE,CL 105 mEq/L (98-107); CREATININE 0.8 mg/dL (0.55-1.02); EST CRCL DRUG DOSING (CG) 95.45 mL/min; ESTIMATED GFR 98 mL/min (>60); GLUCOSE RANDOM 83 mg/dL (70-99); LIPASE 106 U/L (16-77); POTASSIUM,K 3.6 mEq/L (3.5-5.1); PROTEIN TOTAL,TP 7.5 g/dl (6.4-8.2); SODIUM,NA 140 mEq/L (136-145)
[2023-11-05 20:53] LABS: BACTERIA,URINE FEW /hpf (FEW); MUCUS,URINE FEW /hpf (FEW); RBC,URINE 0-5 /hpf (0-5); SQUAMOUS EPITHELIAL CELLS,UR 0-5 /hpf (0-5)
[2023-11-05 20:55] LABS: C-REACTIVE PROTEIN < 0.05 mg/dL (<0.30)
[2023-11-05] MEDS: Ketorolac 30 MG/ML SDV IVPUSH ONE (21:06)
[2023-11-05] MEDS: Sodium Chloride 0.9% 10 ML Syringe FLUSH PRN ×2 (21:06→21:08)
[2023-11-05] MEDS: Iopamidol 612 MG/ML 100 ML Bottle IVPUSH ONE (21:07)
[2023-11-05] MEDS: Ondansetron 4 MG/2 ML SDV IVPUSH ONE (21:10)
[2023-11-05] MEDS: Lactated Ringers 1,000 ML IV ONE (21:10)
[2023-11-05 22:16] VITALS: BP 132/78
== END 2023-11-05 22:52 | disposition home or self-care (01) ==
LOC: JD.ED 19:54
DX: K86.1 Other chronic pancreatitis (principal); Z88.2 Allergy status to sulfonamides; Z88.8 Allergy status to other drugs, medicaments and biological substances; Z91.040 Latex allergy status; Z79.899 Other long term (current) drug therapy; Z86.16 Personal history of COVID-19; Z90.49 Acquired absence of other specified parts of digestive tract; Z87.891 Personal history of nicotine dependence
CPT/HCPCS: 36415; 74177; 80053; 81001; 81003; 81025; 83690; 85025; 86140; 87086; 96361; 96374; 96375; 99284; J1885; J2405; J3490; J7120; Q9967

== ENCOUNTER 2024-09-12 17:38 | Emergency (ER) | payer BC ==
[2024-09-12] MEDS ORDERED: Sodium Chloride 0.9% 10 ML Syringe FLUSH PRN (19:46)
[2024-09-12 19:53] LABS: BASOPHILS ABSOLUTE AUTO 0.1 K/mm3 (0.0-0.2); BASOPHILS PERCENT AUTO 1.2 % (0.0-1.0); EOSINOPHILS ABSOLUTE AUTO 0.1 K/mm3 (0.0-0.4); EOSINOPHILS PERCENT AUTO 2.2 % (0.0-6.0); HEMOGLOBIN 12.4 gm/dl (12.0-16.0); IMMATURE GRAN ABSOLUTE AUTO 0.02 K/mm3 (0.00-0.05); IMMATURE GRAN PERCENT AUTO 0.3 % (0.0-0.4); LYMPHOCYTES ABSOLUTE AUTO 3.1 K/mm3 (1.0-4.8); LYMPHOCYTES PERCENT AUTO 52.1 % (24.0-44.0); MEAN CORPUSCULAR HEMOGLOBIN 28.9 pg (28.0-32.0); MEAN CORPUSCULAR HGB CONC 32.6 g/dl (32.0-36.0); MEAN CORPUSCULAR VOLUME 88.6 fl (83.0-99.0); MEAN PLATELET VOLUME 8.8 fl (9.4-12.3); MONOCYTES ABSOLUTE AUTO 0.4 K/mm3 (0.0-0.8); MONOCYTES PERCENT AUTO 5.9 % (0.0-8.0); NEUTROPHILS ABSOLUTE AUTO 2.3 K/mm3 (1.8-7.7); NEUTROPHILS PERCENT AUTO 38.3 % (41.0-71.0); PLATELET COUNT,PLT 218 K/mm3 (150-400); RED BLOOD CELL COUNT 4.29 M/mm3 (4.10-5.30); WHITE BLOOD CELL COUNT,WBC 5.97 K/mm3 (3.9-11.3)
[2024-09-12] MEDS: Sodium Chloride 0.9% 1,000 ML IV ONE (20:02)
[2024-09-12 20:21] LABS: A/G RATIO 1.2 (1-2); ALANINE AMINOTRANSFERASE,ALT 43 U/L (14-59); ALKALINE PHOSPHATASE 77 U/L (46-116); ASPARTATE AMNIOTRANSFERASE,AST 20 U/L (15-37); BILIRUBIN TOTAL 0.3 mg/dL (0.2-1.0); BLOOD UREA NITROGEN,BUN 14 mg/dL (7-18); BUN/CREATININE RATIO 17.5 (14-18); C-REACTIVE PROTEIN <0.05 mg/dL (<0.30); CALCIUM 9.1 mg/dL (8.5-10.1); CARBON DIOXIDE,CO2 29 mEq/L (21-32); CHLORIDE,CL 103 mEq/L (98-107); CREATININE 0.8 mg/dL (0.55-1.02); EST CRCL DRUG DOSING (CG) 95.45 mL/min; ESTIMATED GFR 98 mL/min (>60); GLUCOSE RANDOM 86 mg/dL (70-99); LIPASE 66 U/L (16-77); PROTEIN TOTAL,TP 7.3 g/dl (6.4-8.2); SODIUM,NA 140 mEq/L (136-145)
[2024-09-12 20:22] LABS: APPEARANCE,URINE CLEAR (Clear); BILIRUBIN,URINE NEGATIVE (Negative); COLOR,URINE YELLOW (Yellow); GLUCOSE,URINE NEGATIVE (Negative); KETONES,URINE NEGATIVE (Negative); LEUKOCYTE ESTERASE,URINE NEGATIVE (Negative); NITRITE,URINE NEGATIVE (Negative); OCCULT BLOOD,URINE 1+ (Negative); PROTEIN,URINE NEGATIVE (Negative); UROBILINOGEN,URINE 0.2 (0.2-1.0)
[2024-09-12] MEDS ORDERED: Naloxone 0.4 MG/ML SDV IVPUSH PRN (20:40)
[2024-09-12 20:46] LABS: BACTERIA,URINE NOT SEEN /hpf (FEW); EPITHELIAL CELLS,URINE 0-5 /hpf (0-5); MUCUS,URINE NOT SEEN /hpf (FEW); RBC,URINE 0-5 /hpf (0-5); WBC,URINE 0-5 /hpf (0-5)
[2024-09-12] MEDS: Sodium Chloride 0.9% 10 ML Syringe FLUSH ONE (20:49)
[2024-09-12] MEDS: Iopamidol 612 MG/ML 100 ML Bottle IVPUSH ONE (20:49)
[2024-09-12] MEDS: HYDROmorphone 0.5 MG/0.5 ML Syringe IVPUSH ONE (21:21)
[2024-09-12] MEDS: Alum Hydrox/Mag Hydrox/Simeth 30 ML, Lidocaine 2% 15 ML PO ONE (21:49)
[2024-09-12 22:02] VITALS: BP 116/81; PULSE 60
== END 2024-09-12 22:15 | disposition home or self-care (01) ==
LOC: JD.ED 17:38
DX: R10.12 Left upper quadrant pain (principal); Z88.8 Allergy status to other drugs, medicaments and biological substances; Z88.2 Allergy status to sulfonamides; Z88.1 Allergy status to other antibiotic agents; Z91.040 Latex allergy status; Z79.899 Other long term (current) drug therapy; Z86.16 Personal history of COVID-19; Z90.49 Acquired absence of other specified parts of digestive tract; Z87.891 Personal history of nicotine dependence
CPT/HCPCS: 36415; 74177; 80053; 81001; 81025; 83690; 85025; 86140; 96374; 99284; A9270; J7030; Q9967; 99283

== ENCOUNTER 2024-10-17 10:13 | Day surgery (SDC) | payer BC ==
[~2024-10-17 10:13] MED LIST: Lactated Ringers 1,000 ML IV SCH; Sodium Chloride 0.9% 10 ML Syringe FLUSH PRN; Sodium Chloride 0.9% 10 ML Syringe FLUSH SCH
[2024-10-17] MEDS: Lactated Ringers 1,000 ML IV SCH (10:30)
[2024-10-17] MEDS ORDERED: Ondansetron 4 MG/2 ML SDV ONE (11:09)
[2024-10-17] MEDS ORDERED: Propofol 200 MG/20 ML SDV ONE ×2 (11:40→11:55)
[2024-10-17 12:38] VITALS: BP 104/67; PULSE 80
== END 2024-10-17 12:32 | disposition home or self-care (01) ==
LOC: JD.SDS 10:13
PROVIDERS: ATTEND Surgery
DX: K21.9 Gastro-esophageal reflux disease without esophagitis (principal); K44.9 Diaphragmatic hernia without obstruction or gangrene; K85.00 Idiopathic acute pancreatitis without necrosis or infection; F41.9 Anxiety disorder, unspecified; F32.A Depression, unspecified; Z79.899 Other long term (current) drug therapy; Z88.0 Allergy status to penicillin; Z88.2 Allergy status to sulfonamides; Z91.040 Latex allergy status
CPT/HCPCS: 43239; 81025; C9777; J2405; J2704; J7120; 00731

== ENCOUNTER 2024-11-19 11:19 | Emergency (ER) | payer BC ==
[2024-11-19 11:47] LABS: BASOPHILS ABSOLUTE AUTO 0.1 K/mm3 (0.0-0.2); EOSINOPHILS ABSOLUTE AUTO 0.1 K/mm3 (0.0-0.4); EOSINOPHILS PERCENT AUTO 1.1 % (0.0-6.0); HEMATOCRIT 41.5 % (37.0-47.0); HEMOGLOBIN 13.6 gm/dl (12.0-16.0); IMMATURE GRAN ABSOLUTE AUTO 0.02 K/mm3 (0.00-0.05); IMMATURE GRAN PERCENT AUTO 0.3 % (0.0-0.4); LYMPHOCYTES ABSOLUTE AUTO 2.4 K/mm3 (1.0-4.8); LYMPHOCYTES PERCENT AUTO 38.4 % (24.0-44.0); MEAN CORPUSCULAR HEMOGLOBIN 28.8 pg (28.0-32.0); MEAN CORPUSCULAR HGB CONC 32.8 g/dl (32.0-36.0); MEAN CORPUSCULAR VOLUME 87.9 fl (83.0-99.0); MEAN PLATELET VOLUME 9.2 fl (9.4-12.3); MONOCYTES ABSOLUTE AUTO 0.3 K/mm3 (0.0-0.8); MONOCYTES PERCENT AUTO 4.9 % (0.0-8.0); NEUTROPHILS ABSOLUTE AUTO 3.3 K/mm3 (1.8-7.7); NEUTROPHILS PERCENT AUTO 54.3 % (41.0-71.0); PLATELET COUNT,PLT 191 K/mm3 (150-400); RED BLOOD CELL COUNT 4.72 M/mm3 (4.10-5.30); WHITE BLOOD CELL COUNT,WBC 6.14 K/mm3 (3.9-11.3)
[2024-11-19] MEDS: Sodium Chloride 0.9% 10 ML Syringe FLUSH ONE (11:51)
[2024-11-19] MEDS: Iopamidol 612 MG/ML 100 ML Bottle IVPUSH ONE (11:51)
[2024-11-19] MEDS: HYDROmorphone 0.5 MG/0.5 ML Syringe IVPUSH ONE (12:00)
[2024-11-19] MEDS: Sodium Chloride 0.9% 10 ML Syringe FLUSH PRN (12:01)
[2024-11-19 12:11] LABS: A/G RATIO 1.1 (1-2); ALBUMIN 3.8 g/dl (3.4-5.0); ANION GAP 11.7 (5-15); BILIRUBIN TOTAL 0.5 mg/dL (0.2-1.0); BUN/CREATININE RATIO 12.2 (14-18); CALCIUM 8.9 mg/dL (8.5-10.1); CREATININE 0.9 mg/dL (0.55-1.02); EST CRCL DRUG DOSING (CG) 84.03 mL/min; POTASSIUM,K 3.7 mEq/L (3.5-5.1); PROTEIN TOTAL,TP 7.4 g/dl (6.4-8.2)
[2024-11-19] MEDS: Ondansetron 4 MG/2 ML SDV IVPUSH ONE (12:47)
[2024-11-19 13:50] LABS: APPEARANCE,URINE CLEAR (Clear); BILIRUBIN,URINE NEGATIVE (Negative); COLOR,URINE YELLOW (Yellow); GLUCOSE,URINE NEGATIVE (Negative); KETONES,URINE NEGATIVE (Negative); LEUKOCYTE ESTERASE,URINE NEGATIVE (Negative); NITRITE,URINE NEGATIVE (Negative); OCCULT BLOOD,URINE NEGATIVE (Negative); PH,URINE 7.5 (5.0-8.0); PROTEIN,URINE NEGATIVE (Negative); UROBILINOGEN,URINE 0.2 (0.2-1.0)
[2024-11-19 14:18] VITALS: BP 109/73; PULSE 64
[2024-11-19 14:32] LABS: BACTERIA,URINE FEW /hpf (FEW); EPITHELIAL CELLS,URINE 0-5 /hpf (0-5); MUCUS,URINE FEW /hpf (FEW); RBC,URINE 0-5 /hpf (0-5); WBC,URINE 0-5 /hpf (0-5)
== END 2024-11-19 14:19 | disposition home or self-care (01) ==
LOC: JD.ED 11:19
DX: S33.8XXA Sprain of other parts of lumbar spine and pelvis, initial encounter (principal); S16.1XXA Strain of muscle, fascia and tendon at neck level, initial encounter; S06.0X0A Concussion without loss of consciousness, initial encounter; K76.9 Liver disease, unspecified; Z88.8 Allergy status to other drugs, medicaments and biological substances; Z88.2 Allergy status to sulfonamides; Z79.899 Other long term (current) drug therapy; Z86.16 Personal history of COVID-19; Z90.49 Acquired absence of other specified parts of digestive tract; Z87.891 Personal history of nicotine dependence; W19.XXXA Unspecified fall, initial encounter
CPT/HCPCS: 36415; 70450; 71260; 72125; 74177; 80053; 81001; 83690; 84703; 85025; 96374; 96375; 99285; J2405; Q9967; 99284

== ENCOUNTER 2024-11-28 07:18 | Observation (INO) | payer BC ==
[~2024-11-28 07:18] MED LIST changes: +Dexamethasone 4 MG/ML 5 ML MDV ONE; -Lactated Ringers 1,000 ML IV SCH; +Lactated Ringers 1,000 ML ONE; +Lidocaine 1% 4 ML ONE; +Midazolam 1 MG/ML 2 ML SDV ONE; +Ondansetron 4 MG/2 ML SDV ONE; +Propofol 200 MG/20 ML SDV ONE; +Rocuronium 50 MG/5 ML Vial ONE; -Sodium Chloride 0.9% 10 ML Syringe FLUSH PRN; -Sodium Chloride 0.9% 10 ML Syringe FLUSH SCH; +ceFAZolin 2 GM Vial ONE; +dexmedeTOMIDine HCl 200 MCG/2 ML SDV ONE; +fentaNYL 250 MCG/5 ML SDV ONE
[2024-11-28] MEDS ORDERED: fentaNYL 100 MCG/2 ML SDV IVPUSH PRN (07:49)
[2024-11-28] MEDS ORDERED: HYDROmorphone 0.5 MG/0.5 ML Syringe IVPUSH PRN ×2 (07:49→09:54)
[2024-11-28] MEDS ORDERED: Ondansetron 4 MG/2 ML SDV IVPUSH PRN (07:49)
[2024-11-28] MEDS ORDERED: Lactated Ringers 1,000 ML IV ONE (08:00)
[2024-11-28] MEDS ORDERED: Sodium Chloride 0.9% 100 ML IV ONE (08:00)
[2024-11-28] MEDS ORDERED: Sodium Chloride 0.9% 10 ML Syringe FLUSH PRN (08:06)
[2024-11-28] MEDS ORDERED: Lactated Ringers 1,000 ML IV SCH (08:15)
[2024-11-28] MEDS: Bupivacaine 0.5% 30 ML SDV ONE (08:28)
[2024-11-28] MEDS: EPINEPHrine 1 MG/ML SDV ONE (08:28)
[2024-11-28] MEDS ORDERED: ePHEDrine 50 MG/ML SDV ONE (08:33)
[2024-11-28] MEDS ORDERED: Sugammadex Sodium 200 MG/2 ML VIAL IV ONE (09:12)
[2024-11-28] MEDS ORDERED: Ketorolac 30 MG/ML SDV ONE (09:12)
[2024-11-28] MEDS ORDERED: Promethazine 25 MG Tab PO PRN (09:54)
[2024-11-28] MEDS ORDERED: Acetaminophen 325 MG Tab PO PRN (09:54)
[2024-11-28] MEDS ORDERED: diphenhydrAMINE 50 MG/ML SDV IVPUSH PRN (09:58)
[2024-11-28] MEDS ORDERED: Benzocaine/Cetylpyridinium/Menthol Lozenge MUCMEM PRN (09:58)
[2024-11-28] MEDS: Sodium Chloride 0.9% 10 ML Syringe FLUSH SCH (11:38)
[2024-11-28] MEDS: oxyCODONE 5 MG Tab PO PRN (11:42)
[2024-11-28] MEDS: Ondansetron 4 MG/2 ML SDV IV PRN (11:42)
[2024-11-28] MEDS: Lactated Ringers 1,000 ML IV SCH (15:22)
[2024-11-28] MEDS: Simethicone 80 MG Tab.Chew PO PRN (16:33)
[2024-11-28 17:19] VITALS: BP 122/66; PULSE 85
[2024-11-28] MEDS ORDERED: DULoxetine 30 MG Cap PO SCH (21:00)
== END 2024-11-28 18:00 | disposition home or self-care (01) ==
LOC: INTOOBSV 07:18 → JD.MS 07:18 → UNDOADMIN 07:18
PROVIDERS: ADMIT Surgery; ATTEND Surgery
DX: K44.9 Diaphragmatic hernia without obstruction or gangrene (principal); K21.9 Gastro-esophageal reflux disease without esophagitis
CPT/HCPCS: 43280; A9270; J0171; J0665; J0690; J1100; J1885; J2003; J2250; J2405; J2704; J3010; J7120; 00750; J3490

== ENCOUNTER 2024-12-07 19:10 | Inpatient (IN) | payer BC ==
[2024-12-07 19:58] LABS: APPEARANCE,URINE CLEAR (Clear); BILIRUBIN,URINE NEGATIVE (Negative); COLOR,URINE YELLOW (Yellow); GLUCOSE,URINE NEGATIVE (Negative); KETONES,URINE 1+ (Negative); LEUKOCYTE ESTERASE,URINE NEGATIVE (Negative); NITRITE,URINE NEGATIVE (Negative); OCCULT BLOOD,URINE NEGATIVE (Negative); PROTEIN,URINE NEGATIVE (Negative); UROBILINOGEN,URINE 0.2 (0.2-1.0)
[2024-12-07 20:15] LABS: BASOPHILS ABSOLUTE AUTO 0.1 K/mm3 (0.0-0.2); BASOPHILS PERCENT AUTO 1.6 % (0.0-1.0); EOSINOPHILS ABSOLUTE AUTO 0.1 K/mm3 (0.0-0.4); EOSINOPHILS PERCENT AUTO 1.8 % (0.0-6.0); HEMATOCRIT 40.6 % (37.0-47.0); HEMOGLOBIN 13.6 gm/dl (12.0-16.0); IMMATURE GRAN ABSOLUTE AUTO 0.01 K/mm3 (0.00-0.05); IMMATURE GRAN PERCENT AUTO 0.2 % (0.0-0.4); LYMPHOCYTES ABSOLUTE AUTO 3.3 K/mm3 (1.0-4.8); LYMPHOCYTES PERCENT AUTO 53.5 % (24.0-44.0); MEAN CORPUSCULAR HEMOGLOBIN 29.2 pg (28.0-32.0); MEAN CORPUSCULAR HGB CONC 33.5 g/dl (32.0-36.0); MEAN CORPUSCULAR VOLUME 87.1 fl (83.0-99.0); MONOCYTES ABSOLUTE AUTO 0.4 K/mm3 (0.0-0.8); MONOCYTES PERCENT AUTO 6.1 % (0.0-8.0); NEUTROPHILS ABSOLUTE AUTO 2.2 K/mm3 (1.8-7.7); NEUTROPHILS PERCENT AUTO 36.8 % (41.0-71.0); PLATELET COUNT,PLT 242 K/mm3 (150-400); RED BLOOD CELL COUNT 4.66 M/mm3 (4.10-5.30); WHITE BLOOD CELL COUNT,WBC 6.09 K/mm3 (3.9-11.3)
[2024-12-07] MEDS: Sodium Chloride 0.9% 10 ML Syringe FLUSH PRN (20:16)
[2024-12-07] MEDS: Iopamidol 612 MG/ML 100 ML Bottle IVPUSH ONE (20:16)
[2024-12-07] MEDS: Sodium Chloride 0.9% 1,000 ML IV ONE (20:27)
[2024-12-07] MEDS: Ketorolac 15 MG/ML SDV IVPUSH ONE (20:27)
[2024-12-07 20:28] LABS: A/G RATIO 1.1 (1-2); ALBUMIN 4.2 g/dl (3.4-5.0); ANION GAP 15.2 (5-15); BILIRUBIN TOTAL 0.7 mg/dL (0.2-1.0); CALCIUM 9.2 mg/dL (8.5-10.1); CREATININE 0.8 mg/dL (0.55-1.02); EST CRCL DRUG DOSING (CG) 94.54 mL/min; POTASSIUM,K 4.2 mEq/L (3.5-5.1); PROTEIN TOTAL,TP 7.9 g/dl (6.4-8.2)
[2024-12-07] MEDS: Ondansetron 4 MG/2 ML SDV IVPUSH ONE (21:41)
[2024-12-08] MEDS ORDERED: Ondansetron 4 MG/2 ML SDV IVPUSH PRN (00:37)
[2024-12-08] MEDS ORDERED: Acetaminophen 325 MG Tab PO PRN (00:40)
[2024-12-08] MEDS ORDERED: Morphine 2 MG/ML SYRINGE IVPUSH PRN (00:40)
[2024-12-08] MEDS: oxyCODONE 5 MG Tab PO PRN (00:52)
[2024-12-08] MEDS: DULoxetine 30 MG Cap PO ONE (00:53)
[2024-12-08] MEDS: Pregabalin 25 MG Cap PO ONE (00:53)
[2024-12-08 07:20] LABS: BASOPHILS ABSOLUTE AUTO 0.1 K/mm3 (0.0-0.2); BASOPHILS PERCENT AUTO 1.5 % (0.0-1.0); EOSINOPHILS ABSOLUTE AUTO 0.1 K/mm3 (0.0-0.4); EOSINOPHILS PERCENT AUTO 2.7 % (0.0-6.0); HEMATOCRIT 38.5 % (37.0-47.0); HEMOGLOBIN 12.8 gm/dl (12.0-16.0); IMMATURE GRAN ABSOLUTE AUTO 0.01 K/mm3 (0.00-0.05); IMMATURE GRAN PERCENT AUTO 0.2 % (0.0-0.4); LYMPHOCYTES ABSOLUTE AUTO 2.2 K/mm3 (1.0-4.8); LYMPHOCYTES PERCENT AUTO 53.8 % (24.0-44.0); MEAN CORPUSCULAR HEMOGLOBIN 29.1 pg (28.0-32.0); MEAN CORPUSCULAR HGB CONC 33.2 g/dl (32.0-36.0); MEAN CORPUSCULAR VOLUME 87.5 fl (83.0-99.0); MEAN PLATELET VOLUME 8.8 fl (9.4-12.3); MONOCYTES ABSOLUTE AUTO 0.3 K/mm3 (0.0-0.8); MONOCYTES PERCENT AUTO 7.7 % (0.0-8.0); NEUTROPHILS ABSOLUTE AUTO 1.4 K/mm3 (1.8-7.7); NEUTROPHILS PERCENT AUTO 34.1 % (41.0-71.0); PLATELET COUNT,PLT 192 K/mm3 (150-400); WHITE BLOOD CELL COUNT,WBC 4.03 K/mm3 (3.9-11.3)
[2024-12-08 07:40] LABS: A/G RATIO 1.1 (1-2); ALBUMIN 3.6 g/dl (3.4-5.0); BILIRUBIN TOTAL 0.8 mg/dL (0.2-1.0); CALCIUM 8.7 mg/dL (8.5-10.1); CREATININE 0.7 mg/dL (0.55-1.02); EST CRCL DRUG DOSING (CG) 108.04 mL/min; MAGNESIUM 2.1 mg/dL (1.8-2.4); PHOSPHORUS 3.6 mg/dL (2.6-4.7); PROTEIN TOTAL,TP 6.8 g/dl (6.4-8.2)
[2024-12-08] MEDS: Pregabalin 25 MG Cap PO SCH (08:44)
[2024-12-08] MEDS: Lactated Ringers 1,000 ML IV SCH (11:43)
[2024-12-08 16:40] VITALS: BP 109/79; PULSE 63
[2024-12-08] MEDS ORDERED: DULoxetine 30 MG Cap PO SCH (21:00)
[2024-12-10 14:42] LABS: PROT C FUNCTIONAL 94 % (83-168); PROT S FUNCTIONAL 82 % (57-131)
[2024-12-11 13:46] LABS: AT III ANTIGEN 78 % (82-136); AT III ENZYMATIC 93 % (76-128)
[2024-12-13 15:47] LABS: FACTOR V LEIDEN R506Q MUTATION Negative; FACV SPECIMEN Whole Blood
[2024-12-13 16:46] LABS: PROTHROMBIN G20210A PATHOG VAR Negative
== END 2024-12-08 16:32 | disposition home or self-care (01) | DRG 663 ==
LOC: JD.ED 19:10 → JD.MS 22:46
PROVIDERS: ADMIT Student in an Organized Health Care Education/Training Program; ATTEND Student in an Organized Health Care Education/Training Program
DX: D73.5 Infarction of spleen (principal); H54.7 Unspecified visual loss; K21.9 Gastro-esophageal reflux disease without esophagitis; F41.9 Anxiety disorder, unspecified; F32.A Depression, unspecified; G62.9 Polyneuropathy, unspecified; K76.0 Fatty (change of) liver, not elsewhere classified; K42.9 Umbilical hernia without obstruction or gangrene; K59.00 Constipation, unspecified; Z91.040 Latex allergy status; Z88.1 Allergy status to other antibiotic agents; Z88.2 Allergy status to sulfonamides; Z87.440 Personal history of urinary (tract) infections; Z87.891 Personal history of nicotine dependence; Z87.81 Personal history of (healed) traumatic fracture; Z88.0 Allergy status to penicillin; Z86.16 Personal history of COVID-19; Z98.890 Other specified postprocedural states; Z90.49 Acquired absence of other specified parts of digestive tract; Z79.899 Other long term (current) drug therapy; Z79.891 Long term (current) use of opiate analgesic
CPT/HCPCS: 36415; 74177; 74177-26; 80053; 81003; 81240; 81241; 81270; 83690; 83735; 84100; 84703; 85025; 85300; 85301; 85303; 85306; 85613; 85730; 86147; 93005; 93010; 93306; 96361; 96374; 96375; 99284; 99285-25; A9270-GY; J1885; J2405; J7030; J7120; Q9967

== ENCOUNTER 2025-03-16 14:07 | Emergency (ER) | payer BC ==
[2025-03-16] MEDS ORDERED: Naloxone 0.4 MG/ML SDV IVPUSH PRN (14:24)
[2025-03-16] MEDS: Sodium Chloride 0.9% 10 ML Syringe FLUSH PRN (14:35)
[2025-03-16 14:45] LABS: BASOPHILS ABSOLUTE AUTO 0.1 K/mm3 (0.0-0.2); BASOPHILS PERCENT AUTO 1.0 % (0.0-1.0); EOSINOPHILS ABSOLUTE AUTO 0.1 K/mm3 (0.0-0.4); EOSINOPHILS PERCENT AUTO 0.9 % (0.0-6.0); IMMATURE GRAN ABSOLUTE AUTO 0.01 K/mm3 (0.00-0.05); IMMATURE GRAN PERCENT AUTO 0.1 % (0.0-0.4); LYMPHOCYTES ABSOLUTE AUTO 2.3 K/mm3 (1.0-4.8); LYMPHOCYTES PERCENT AUTO 34.0 % (24.0-44.0); MEAN PLATELET VOLUME 9.1 fl (9.4-12.3); MONOCYTES ABSOLUTE AUTO 0.4 K/mm3 (0.0-0.8); MONOCYTES PERCENT AUTO 5.6 % (0.0-8.0); NEUTROPHILS ABSOLUTE AUTO 3.9 K/mm3 (1.8-7.7); NEUTROPHILS PERCENT AUTO 58.4 % (41.0-71.0); NRBC ABSOLUTE 0.00 (0.00-0.02); NRBC PERCENT 0.0 % (0.0-0.2); PLATELET COUNT,PLT 228 K/mm3 (150-400); RED BLOOD CELL COUNT 4.82 M/mm3 (4.10-5.30); WHITE BLOOD CELL COUNT,WBC 6.76 K/mm3 (3.9-11.3)
[2025-03-16 14:47] LABS: APPEARANCE,URINE CLEAR (Clear); GLUCOSE,URINE NEGATIVE (Negative); OCCULT BLOOD,URINE NEGATIVE (Negative)
[2025-03-16 15:05] LABS: A/G RATIO 1.2 (1-2); ALANINE AMINOTRANSFERASE,ALT 37.0 U/L (14-59); ASPARTATE AMNIOTRANSFERASE,AST 17.0 U/L (15-37); BILIRUBIN TOTAL 0.5 mg/dL (0.2-1.0); BLOOD UREA NITROGEN,BUN 10.0 mg/dL (7-18); CARBON DIOXIDE,CO2 28.0 mEq/L (21-32); CHLORIDE,CL 103.0 mEq/L (98-107); CREATININE 0.7 mg/dL (0.55-1.02); EST CRCL DRUG DOSING (CG) 108.04 mL/min; ESTIMATED GFR 115.0 mL/min (>60); GLUCOSE RANDOM 92.0 mg/dL (70-99); POTASSIUM,K 4.2 mEq/L (3.5-5.1); PROTEIN TOTAL,TP 8.1 g/dl (6.4-8.2); SODIUM,NA 140.0 mEq/L (136-145)
[2025-03-16] MEDS: Iopamidol 612 MG/ML 100 ML Bottle IVPUSH ONE (15:08)
[2025-03-16] MEDS: Sodium Chloride 0.9% 10 ML Syringe FLUSH ONE (15:08)
[2025-03-16] MEDS: Alum Hydrox/Mag Hydrox/Simeth 30 ML, Lidocaine 2% 15 ML PO ONE (15:46)
[2025-03-16 16:45] VITALS: BP 98/69; PULSE 62
== END 2025-03-16 16:45 | disposition home or self-care (01) ==
LOC: JD.ED 14:07
DX: R10.13 Epigastric pain (principal); Z88.2 Allergy status to sulfonamides; Z91.040 Latex allergy status; Z88.8 Allergy status to other drugs, medicaments and biological substances; Z79.899 Other long term (current) drug therapy; Z86.16 Personal history of COVID-19; Z90.49 Acquired absence of other specified parts of digestive tract
CPT/HCPCS: 36415; 74177; 80053; 81003; 81025; 83690; 85025; 86140; 96361; 96374; 96375; 99284; J1308; J3490; J7030; Q9967; A9270-GY; J1171